=== PATIENT | female | born 1985 | race Caucasian/White ===

== ENCOUNTER 2016-07-23 16:49 | Inpatient (IN) | payer MEDICAID, OTHER ==
--- NOTE | 2016-07-23 17:31 | ED ---
Psych HPI <Carson Gagonn - Last Filed: 07/23/16 20:36> - General Source: patient, RN notes reviewed Mode of arrival: ambulatory <Julianna Allred - Last Filed: 07/23/16 20:59> - General Chief Complaint: Psychiatric Symptoms Stated Complaint: Mental Health Time Seen by Provider: 07/23/16 17:06 - History of Present Illness Initial Comments: Patient is a 31-year-old female presents to the emergency room for psych evaluation. Patient states she has a history of bipolar disorder and depression. Patient states she is supposed to be taking Lamictal. Patient states she has not been taking her medication for months. Patient states she's also has a history of drug abuse. Patient states that she was clean for about 4 months and relapsed about a week ago. Patient states she's been snorting cocaine and using heroin. Patient states today after the drugs wore off she became very depressed and was contemplating committing suicide. Patient states while walking across the bridge she contemplated on walkingin front of a car. Patient states that she was in a garage prior to arrival and was having thoughts of wanting to hang herself. Patient also states she's been more agitated than usual. Patient states people ask her simple questions irritates her a lot easier than usual. Denies visual or auditory hallucinations. Patient denies alcohol use. Patient denies any significant past medical history. Patient denies headache or dizziness, abdominal pain, nausea, vomiting , chest pain, shortness of breath. (Julianna Allred) - Related Data Home Medications Medication Instructions Recorded Confirmed No Known Home Medications [No 07/23/16 07/23/16 Known Home Medications] Allergies Allergy/AdvReac Type Severity Reaction Status Date / Time aspirin AdvReac Bleeding Verified 07/23/16 18:09 ibuprofen [From Motrin] AdvReac Bleeding Verified 07/23/16 18:09 Review of Systems ROS Other: All systems not noted in ROS Statement are negative. <Carson Gagnon - Last Filed: 07/23/16 20:36> ROS Other: All systems not noted in ROS Statement are negative. <Julianna Allred - Last Filed: 07/23/16 20:59> ROS Statement: Those systems with pertinent positive or pertinent negative responses have been documented in the HPI. Past Medical History Past Medical History: Chest Pain / Angina Additional Past Medical History / Comment(s): Positive tilt table test per patient History of Any Multi-Drug Resistant Organisms: None Reported Past Surgical History: Appendectomy, Tonsillectomy, Tubal Ligation Additional Past Surgical History / Comment(s): ovarian cyst removal, pins in ankle, colon surgery- fissure Past Anesthesia/Blood Transfusion Reactions: No Reported Reaction Past Psychological History: Anxiety, Bipolar, Depression, PTSD Smoking Status: Current every day smoker Past Alcohol Use History: None Reported Additional Past Alcohol Use History / Comment(s): Patient currently smokes 1 pack per day and has been doing so since she was 17 years of age. She denies any marijuana use. She does state she uses cocaine periodically and has been recently using every day. She denies any alcohol use. She denies any narcotic use. Patient states she is homeless. Patient also recently moved from [place] to the [facility] Past Drug Use History: Cocaine, Heroin, IV Drug Use - Past Family History Father Family Medical History: No Reported History Additional Family Medical History / Comment(s): Father is alive for patient has had no contact with him. Mother Family Medical History: No Reported History Additional Family Medical History / Comment(s): Mother is alive at age 50 with history of pacemaker placement, bipolar and depression. Patient has 2 sisters one is healthy and one has mental illness. Patient has 2 boys that have ADHD. <Julianna Allred - Last Filed: 07/23/16 20:59> General Exam <Carson Gagnon - Last Filed: 07/23/16 20:36> Limitations: no limitations General appearance: alert, in no apparent distress Head exam: Present: atraumatic, normocephalic, normal inspection Eye exam: Present: normal appearance ENT exam: Present: normal exam Neck exam: Present: normal inspection Respiratory exam: Present: normal lung sounds bilaterally. Absent: respiratory distress Cardiovascular Exam: Present: regular rate, normal rhythm, normal heart sounds GI/Abdominal exam: Present: soft, normal bowel sounds. Absent: distended, tenderness, guarding, rebound, rigid Extremities exam: Present: normal inspection Back exam: Present: normal inspection Neurological exam: Present: alert, oriented X3, CN II-XII intact, normal gait Psychiatric exam: Present: normal affect, normal mood Skin exam: Present: warm, dry, intact, normal color. Absent: rash <Julianna Allred - Last Filed: 07/23/16 20:59> - General Exam Comments Initial Comments: Sitting in exam room, tearful, no acute distress. (Julianna Allred) Disposition <Carson Gagnon - Last Filed: 07/23/16 20:36> Decision Date: 07/23/16 <Julianna Allred - Last Filed: 07/23/16 20:59> Clinical Impression: Polysubstance abuse, Suicidal ideations Disposition: ADMITTED IP TO THIS [facility] Condition: Stable
[2016-07-23] MEDS ORDERED: MAG HYDROX/AL HYDROX/SIMETH 30 ML CUP PO PRN (21:00)
[2016-07-23] MEDS ORDERED: ZIPRASIDONE 20 MG VIAL IM PRN (21:00)
[2016-07-23] MEDS ORDERED: ACETAMINOPHEN TAB 325 MG TAB PO PRN (21:00)
[2016-07-23] MEDS ORDERED: MAGNESIUM HYDROXIDE 2,400 MG/10 ML CUP PO PRN (21:00)
[2016-07-23] MEDS ORDERED: LORazepam 2 MG/ML SYRINGE IM PRN (21:02)
[2016-07-24 09:42] LABS: Basophils % (A) 1 %; CH 30.6; CHCM 34.3; Eosinophils # (A) 0.3 k/uL (0-0.7); Eosinophils % (A) 5 %; HDW 2.82; HGB 13.3 gm/dL (11.4-16.0); Luc # (Auto) 0.14; Luc % (Auto) 3; Lymphocytes # (A) 1.4 k/uL (1.0-4.8); Lymphocytes % (A) 25 %; MCH 31.5 pg (25.0-35.0); MCV 89.9 fL (80.0-100.0); Mean Platelet Volume 7.8; Monocytes # (A) 0.2 k/uL (0-1.0); Monocytes % (A) 4 %; Neutrophils # (A) 3.5 k/uL (1.3-7.7); Neutrophils % (A) 63 %; RBC 4.23 m/uL (3.80-5.40); RDW 12.7 % (11.5-15.5); WBC 5.6 k/uL (3.8-10.6); WBC (Perox) 6.25
[2016-07-24 10:01] LABS: ALT 30 U/L (9-52); AST 31 U/L (14-36); Alkaline Phosphatase 45 U/L (38-126); Anion Gap 10 mmol/L; Blood Urea Nitrogen 9 mg/dL (7-17); Calcium 9.1 mg/dL (8.4-10.2); Carbon Dioxide 25 mmol/L (22-30); Chloride 109 mmol/L (98-107); Glucose 126 mg/dL (74-99); Non-African American GFR(MDRD) >60 (>60 ml/min/1.73 sqM); Potassium 3.2 mmol/L (3.5-5.1); Sodium 144 mmol/L (137-145); Total Bilirubin 0.5 mg/dL (0.2-1.3); Total Protein 6.3 g/dL (6.3-8.2)
[2016-07-24] MEDS: NICOTINE 21MG/24HR PATCH TRANSDERM SCH (10:16)
--- NOTE | 2016-07-24 15:05 | P.HPIM ---
History of Present Illness H&P Date: 07/24/16 Chief Complaint: Medical eval A 31-year-old female is being seen in the mental health unit with the attending at the request of the mental health service for medical eval. Patient presented to the emergency room for psychiatric eval. Patient states that she stopped taking in March all of her medication . Patient stated that she started using street drugs Patient stated that she started snorting cocaine & heroin. When asked why she stopped taking her prescription medication for her bipolar patient stated that she didn't have insurance ran out of money. 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 Patient states that she once the drugs wore off had been very depressed and contemplating committing suicide. Patient stated that she been contemplating walking in front of a car. Patient additionally states that she's been agitated a lot. Patient becomes easily agitated when attempting to interview the patient on the mental health unit Review of Systems Essentially unremarkable except as mentioned in the present illness Past Medical History Past Medical History: Chest Pain / Angina Additional Past Medical History / Comment(s): Positive tilt table test per patient History of Any Multi-Drug Resistant Organisms: None Reported Past Surgical History: Appendectomy, Tonsillectomy, Tubal Ligation Additional Past Surgical History / Comment(s): ovarian cyst removal, pins in ankle, colon surgery- fissure Past Anesthesia/Blood Transfusion Reactions: No Reported Reaction Past Psychological History: Anxiety, Bipolar, Depression, PTSD Smoking Status: Current every day smoker Past Alcohol Use History: None Reported Additional Past Alcohol Use History / Comment(s): Patient currently smokes 1 pack per day and has been doing so since she was 17 years of age. She denies any marijuana use. She does state she uses cocaine periodically and has been recently using every day. She denies any alcohol use. She denies any narcotic use. Patient states she is homeless. Patient also recently moved from [place] to the [facility] Past Drug Use History: Cocaine, Heroin, IV Drug Use - Past Family History Father Family Medical History: No Reported History Additional Family Medical History / Comment(s): Father is alive for patient has had no contact with him. Mother Family Medical History: No Reported History Additional Family Medical History / Comment(s): Mother is alive at age 50 with history of pacemaker placement, bipolar and depression. Patient has 2 sisters one is healthy and one has mental illness. Patient has 2 boys that have ADHD. Medications and Allergies Home Medications Medication Instructions Recorded Confirmed Type No Known Home Medications [No 07/23/16 07/23/16 History Known Home Medications] Allergies Allergy/AdvReac Type Severity Reaction Status Date / Time aspirin AdvReac Bleeding Verified 07/23/16 18:09 ibuprofen [From Motrin] AdvReac Bleeding Verified 07/23/16 18:09 Physical Exam Vitals: Vital Signs Temp Pulse Pulse Resp BP BP Pulse Ox 07/24/16 06:59 97.5 F L 51 L 18 105/63 07/23/16 21:47 98 16 108/55 95 07/23/16 21:09 98.9 F 59 L 16 120/68 99 Intake and Output 07/23/16 07/24/16 07/24/16 22:59 06:59 14:59 Other: Weight 115.212 kg GENERAL APPEARANCE: 31-year-old femalepatient is alert, oriented, in no acute distress. VITAL SIGNS: Reviewed HEENT: Head is normocephalic and atraumatic. Pupils are equal and reactive. The nares are patent. Oropharynx is clear without lesions. NECK: Supple without lymphadenopathy. Traches midline. HEART: S1, S2. Regular rate and rhythm. LUNGS: No crackles or wheezes are heard. ABDOMEN: Soft, nontender, nondistended with good bowel sounds. No peritoneal signs. No palpable organomegaly or masses. EXTREMITIES: Normal skin color and turgor. No cyanosis, rash, ulceration, clubbing or edema. Radial pedal pulses are 2/4 bilaterally. NEUROLOGICAL: No focal deficits. Strength and sensation are grossly intact. Results CBC & Chem 7: 07/24/16 09:20 07/24/16 09:20 Labs: Abnormal Lab Results - Last 24 Hours (Table) 07/24/16 Range/Units 09:20 Potassium 3.2 L (3.5-5.1) mmol/L Chloride 109 H (98-107) mmol/L Glucose 126 H (74-99) mg/dL TSH 0.431 L (0.465-4.680) mIU/L Assessment and Plan Plan: Impression History of polysubstance drug abuse heroin and cocaine Bipolar disorder Depressive disorder nonspecified Suicide ideation present on admission with a verbalize plan Nicotine dependency Plan Continue with recommendations by the mental health service defer to Patient will be seen on an as-needed basis to address medical problems as they arise Patient could be seen in the outpatient setting with her PCP Dr. Goldsmith once discharged from the mental health unit Patient will be advised to stop smoking cigarettes The above dictated assessment and findings were discussed with DR goldsmith . Impression and the plan of care have been dictated as directed. Meera Orozco nurse practitioner acting as a scribe for dr morejon
[2016-07-24] MEDS ORDERED: ARIPiprazole 15 MG TAB PO SCH (21:00)
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
[2016-07-25] MEDS: NICOTINE 21MG/24HR PATCH TRANSDERM SCH (09:12)
[2016-07-25] MEDS: POTASSIUM CHLORIDE ER 20 MEQ TAB.ER PO SCH ×3 (09:52→13:45)
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
[2016-07-25] MEDS ORDERED: buPROPion SR 150 MG TABLET.ER PO ONE (13:47)
[2016-07-25] MEDS: ARIPiprazole 5 MG TAB PO SCH (18:46)
[2016-07-25] MEDS: MELATONIN 5 MG TABLET PO SCH (21:23)
[2016-07-26] MEDS: buPROPion SR 150 MG TABLET.ER PO SCH (08:30)
[2016-07-26] MEDS: NICOTINE 21MG/24HR PATCH TRANSDERM SCH ×2 (08:31→17:46)
[2016-07-26 09:16] LABS: Anion Gap 10 mmol/L; Blood Urea Nitrogen 12 mg/dL (7-17); Calcium 9.1 mg/dL (8.4-10.2); Carbon Dioxide 22 mmol/L (22-30); Chloride 109 mmol/L (98-107); Glucose 111 mg/dL (74-99); Non-African American GFR(MDRD) >60 (>60 ml/min/1.73 sqM); Sodium 141 mmol/L (137-145)
--- NOTE | 2016-07-26 17:19 | P.PN ---
Progress Note - Text SUBJECTIVE: I reviewed the medical record and attempted to interview Gilda. She is a 31-year-old female admitted to the unit involuntarily with history of suicidal ideation in the context of relapse to cocaine and heroin. She initially refused to come out of her home but later approach me in [facility] office. She talked about experiencing fugue states and intrusive memories. For example there are times when she feels as though she is spending time with her children. She believes that they are at the movies. She remembers sharing popcorn and laughing and joking. Then remembers that she has not seen her children and several years and the experience did not actually occur. She also talked about having periods of time when she finds herself somewhere and could not remember how she had arrived. During these episodes she denied that she had been using drugs or drinking. She also talked about hearing voices that are indistinct and distant as though "they were in another home." She denied other psychotic symptoms such as ideas reference, thought insertion, thought broadcasting or thought control OBJECTIVE: She presented as a tall moderately obese casually groomed 31-year- old female who looked younger than her stated age. She cooperated with the interview but left abruptly. She made eye contact and appeared to attend to the exam. She had no distinguishing features or prominent physical abnormalities. She had a blunted facial expression. She was alert and oriented to person, place and time. She had psychomotor retardation but no abnormal involuntary movements. Her speech was not spontaneous. She had no articulation difficulty. Affect was blunted. She denied suicidal ideation or wishes. She denied homicidal ideation. She expressed depressive cognitions such as hopelessness and helplessness. She did not express phobias, ideas reference or paranoid ideation. Her thinking was concrete but her associations were coherent and logical. She described auditory hallucinations but did not appear to be responding to internal stimuli. ASSESSMENT: She continues to described feelings depression but denied suicidal ideation. She is describing other psychotic and nonpsychotic experiences. PLAN: Continue inpatient hospitalization pending her probate hearing. Continue Abilify 5 mg daily, melatonin 5 mg at bedtime and Wellbutrin SR 150 mg daily. Encourage participation in therapeutic groups and activities. Evaluate clinical status response to treatment on a daily basis.
[2016-07-26] MEDS: ARIPiprazole 5 MG TAB PO SCH (17:46)
[2016-07-26] MEDS: LORazepam 1 MG TAB PO PRN (17:48)
[2016-07-26] MEDS: MELATONIN 5 MG TABLET PO SCH (20:49)
[2016-07-27 06:54] VITALS: RESP 16; TEMP 97.4
[2016-07-27] MEDS: NICOTINE 21MG/24HR PATCH TRANSDERM SCH (08:36)
[2016-07-27] MEDS: buPROPion SR 150 MG TABLET.ER PO SCH (08:36)
[2016-07-27] MEDS: LORazepam 1 MG TAB PO PRN (14:21)
[2016-07-27] MEDS ORDERED: traZODone HCL 100 MG TAB PO PRN (15:06)
--- NOTE | 2016-07-27 15:06 | P.PN ---
Progress Note - Text SUBJECTIVE: I reviewed the medical record and attempted to interview Gilda. She signed a "3 day notice" as the afternoon. She reaffirmed her desire to be discharged. She denied problems or concerns other than difficulty sleeping. She requested something to sleep in addition to melatonin. She does not want a prescription for Seroquel due to weight gain but agreed to trazodone. OBJECTIVE: She presented as a tall moderately obese casually groomed 31-year- old female who looked younger than her stated age. She cooperated with the interview. She made eye contact and appeared to attend to the exam. She had no distinguishing features or prominent physical abnormalities. She had a blunted facial expression. She was alert and oriented to person, place and time. She she had normal psychomotor activity. Her speech was spontaneous with normal rate, rhythm and volume.. She had no articulation difficulty. Affect was blunted but stable and appropriate. She denied suicidal ideation or wishes. She denied homicidal ideation. She denied depressive cognitions such as hopelessness and helplessness. She did not express phobias, ideas reference or paranoid ideation. Her thinking was concrete but her associations were coherent and logical. She described possible auditory hallucinations but did not appear to be responding to internal stimuli. ASSESSMENT: She currently denying depression or suicidal ideation. PLAN: Continue inpatient hospitalization pending her probate hearing. Continue Abilify 5 mg daily, melatonin 5 mg at bedtime and Wellbutrin SR 150 mg daily. Trial of trazodone 100 mg at bedtime when necessary for sleep. Encourage participation in therapeutic groups and activities. Evaluate clinical status response to treatment on a daily basis.
[2016-07-27] MEDS: ARIPiprazole 5 MG TAB PO SCH (18:41)
[2016-07-27] MEDS ORDERED: LORazepam 1 MG TAB PO STA (18:51)
[2016-07-27] MEDS ORDERED: ZIPRASIDONE 20 MG VIAL IM ONE (21:08)
[2016-07-27] MEDS ORDERED: WATER FOR INJECTION, STERILE 10 ML IV ONE (21:08)
[2016-07-27] MEDS ORDERED: LORazepam 2 MG/ML SYRINGE IM STA (21:56)
[2016-07-27] MEDS ORDERED: HALOPERIDOL LACTATE 5 MG/ML 1 ML VIAL IM PRN (21:57)
--- NOTE | 2016-07-27 22:05 | P.PN ---
Progress Note - Text Nursing called me to come to the hospital to evaluate the patient by 10:05 PM. They placed her in restraints 9:05 PM. The charge nurse described increasing agitation and disruptive behavior. The precipitant appeared to be not receiving her evening medications when she demanded. Nursing staff was unable to deescalate her agitation and violent behavior. I evaluated her in the seclusion room. She was in 4-point restraint and the one -to-one sitter was at her bedside. She was alert and oriented. She took no responsibility for actions and placed a blame for her behavioral dyscontrol on staff. She received 20 mg of Geodon IM at 9:20 PM. I ordered haloperidol 5 mg IM every 6 hours when necessary for agitation acute psychosis and lorazepam 2 mg IM once.
[2016-07-27] MEDS: MELATONIN 5 MG TABLET PO SCH (22:39)
[2016-07-28 06:19] VITALS: BP 87/50; PULSE 48
[2016-07-28] MEDS: buPROPion SR 150 MG TABLET.ER PO SCH (12:49)
[2016-07-28] MEDS ORDERED: buPROPion SR 150 MG TABLET.ER PO STA (12:49)
[2016-07-28] MEDS: NICOTINE 21MG/24HR PATCH TRANSDERM SCH (12:52)
[2016-07-28] MEDS ORDERED: ARIPiprazole 15 MG TAB PO SCH (19:00)
[2016-07-28] MEDS ORDERED: busPIRone HCl 5 MG TAB PO SCH (21:00)
[2016-07-29] MEDS ORDERED: buPROPion SR 100 MG TABLET.ER PO SCH (09:00)
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
== END 2016-07-28 13:10 | disposition home or self-care (01) | DRG 897 ==
LOC: EC 16:49 → 3MHU 20:58
PROVIDERS: ADMIT Psychiatry & Neurology Psychiatry; ATTEND Psychiatry & Neurology Psychiatry
DX: F14.159 Cocaine abuse with cocaine-induced psychotic disorder, unspecified (principal); R45.851 Suicidal ideations; F31.5 Bipolar disorder, current episode depressed, severe, with psychotic features; E66.3 Overweight; F17.210 Nicotine dependence, cigarettes, uncomplicated; F43.10 Post-traumatic stress disorder, unspecified; F60.3 Borderline personality disorder; Z59.0 Homelessness; Z62.810 Personal history of physical and sexual abuse in childhood; Z65.3 Problems related to other legal circumstances; Z78.1 Physical restraint status; Z79.899 Other long term (current) drug therapy; Z81.8 Family history of other mental and behavioral disorders; Z91.14 Patient's other noncompliance with medication regimen; Z91.19 Patient's noncompliance with other medical treatment and regimen; Z91.410 Personal history of adult physical and sexual abuse; Z68.35 Body mass index [BMI] 35.0-35.9, adult; F41.9 Anxiety disorder, unspecified
CPT/HCPCS: 80048; 80053; 80306; 81025; 84443; 85025; 99285

== ENCOUNTER 2016-10-06 19:55 | Emergency (ER) | payer MEDICAID, OTHER ==
[2016-10-06 20:16] LABS: Glucose,Whole Blood 220 mg/dL (75-99)
[2016-10-06] MEDS ORDERED: SODIUM CHLORIDE 0.9% 1,000 ML IV STA (20:18)
--- NOTE | 2016-10-06 20:22 | ED ---
Dizziness HPI - General Chief Complaint: Dizziness Stated Complaint: Syncope Time Seen by Provider: 10/06/16 20:15 Source: patient, EMS, RN notes reviewed Mode of arrival: EMS Limitations: no limitations - History of Present Illness Initial Comments: 31-year-old female presents emergency department via EMS for [facility]. Patient states that she donated plasma and got done at 6:33pm states proximal currently one hour after she started feeling very dizzy, lightheaded like she was going to pass out. She states she walked [facility] was notified eat something felt that she still was going to pass out called 911. Patient states he has had syncopal episodes in the past. She denies any chest pain, shortness of breath, headache, blurred vision or any focal weakness. Denies any nausea vomiting. Patient states that she is donated plasma several times - Related Data Home Medications Medication Instructions Recorded Confirmed ARIPiprazole [Abilify] 15 mg PO DAILY 10/06/16 10/06/16 buPROPion HCL [Wellbutrin XL] 300 mg PO DAILY 10/06/16 10/06/16 traZODone HCL [Desyrel] 100 mg PO HS 10/06/16 10/06/16 Previous Rx's Medication Instructions Recorded busPIRone HCl [Buspar] 5 mg PO BID 30 Days 07/28/16 Allergies Allergy/AdvReac Type Severity Reaction Status Date / Time aspirin AdvReac Bleeding Verified 10/06/16 20:36 ibuprofen [From Motrin] AdvReac Bleeding Verified 10/06/16 20:36 Review of Systems ROS Statement: Those systems with pertinent positive or pertinent negative responses have been documented in the HPI. ROS Other: All systems not noted in ROS Statement are negative. Past Medical History Past Medical History: Chest Pain / Angina Additional Past Medical History / Comment(s): Positive tilt table test per patient, syncope History of Any Multi-Drug Resistant Organisms: None Reported Past Surgical History: Appendectomy, Tonsillectomy, Tubal Ligation Additional Past Surgical History / Comment(s): ovarian cyst removal, pins in ankle, colon surgery- fissure Past Anesthesia/Blood Transfusion Reactions: No Reported Reaction Past Psychological History: Anxiety, Bipolar, Depression, PTSD Smoking Status: Current every day smoker Past Alcohol Use History: None Reported Additional Past Alcohol Use History / Comment(s): Patient currently smokes 1 pack per day and has been doing so since she was 17 years of age. She denies any marijuana use. She does state she uses cocaine periodically and has been recently using every day. She denies any alcohol use. She denies any narcotic use. Patient states she is homeless. Patient also recently moved from [place] to the [facility] Past Drug Use History: Cocaine, Heroin, IV Drug Use - Past Family History Father Family Medical History: No Reported History Additional Family Medical History / Comment(s): Father is alive for patient has had no contact with him. Mother Family Medical History: No Reported History Additional Family Medical History / Comment(s): Mother is alive at age 50 with history of pacemaker placement, bipolar and depression. Patient has 2 sisters one is healthy and one has mental illness. Patient has 2 boys that have ADHD. General Exam Limitations: no limitations General appearance: alert, in no apparent distress ENT exam: Present: normal exam, normal oropharynx, mucous membranes moist Neck exam: Present: normal inspection. Absent: tenderness, meningismus, lymphadenopathy Respiratory exam: Present: normal lung sounds bilaterally. Absent: respiratory distress, wheezes, rales, rhonchi, stridor Cardiovascular Exam: Present: regular rate, normal rhythm, normal heart sounds. Absent: systolic murmur, diastolic murmur, rubs, gallop, clicks GI/Abdominal exam: Present: soft, normal bowel sounds. Absent: distended, tenderness, guarding, rebound, rigid Neurological exam: Present: alert, oriented X3, CN II-XII intact, reflexes normal. Absent: motor sensory deficit Skin exam: Present: warm, dry, intact, normal color. Absent: rash Course Vital Signs 10/06/16 20:06 Temperature 98.3 F Pulse Rate 63 Respiratory 16 Rate Blood Pressure 106/58 O2 Sat by Pulse 97 Oximetry EKG Findings - EKG Comments: EKG Findings:: EKG performed at 20:31 normal sinus rhythm with a rate of 66 AK interval 168 QRS duration 100 QT/QTC 426/446 Medical Decision Making - Medical Decision Making 31-year-old female presented emergency department for new cycle after plasma donation. Patient's labwork does reveals mild hyperglycemia at 220. Patient states she's not diabetic. Facial follow-up regular physician for recheck of this. Patient states she is feeling improved after IV fluids. - Lab Data Result diagrams: 10/06/16 20:14 10/06/16 20:14 Lab Results 10/06/16 10/06/16 10/06/16 Range/Units 20:14 20:14 20:15 WBC 13.9 H (3.8-10.6) k/uL RBC 4.90 (3.80-5.40) m/uL Hgb 15.4 (11.4-16.0) gm/dL Hct 44.8 (34.0-46.0) % MCV 91.4 (80.0-100.0) fL MCH 31.5 (25.0-35.0) pg MCHC 34.5 (31.0-37.0) g/dL RDW 12.5 (11.5-15.5) % Plt Count 276 (150-450) k/uL Neutrophils % 79 % Lymphocytes % 14 % Monocytes % 3 % Eosinophils % 2 % Basophils % 1 % Neutrophils # 10.9 H (1.3-7.7) k/uL Lymphocytes # 2.0 (1.0-4.8) k/uL Monocytes # 0.5 (0-1.0) k/uL Eosinophils # 0.3 (0-0.7) k/uL Basophils # 0.1 (0-0.2) k/uL Sodium 138 (137-145) mmol/L Potassium 3.6 (3.5-5.1) mmol/L Chloride 109 H (98-107) mmol/L Carbon Dioxide 18 L (22-30) mmol/L Anion Gap 11 mmol/L BUN 16 (7-17) mg/dL Creatinine 0.98 (0.52-1.04) mg/dL Est GFR (MDRD) Af Amer >60 (>60 ml/min/1.73 sqM) Est GFR (MDRD) Non-Af >60 (>60 ml/min/1.73 sqM) Glucose 222 H (74-99) mg/dL POC Glucose (mg/dL) 220 H (75-99) mg/dL POC Glu [employer] Operator ID Olivia Segal Calcium 8.9 (8.4-10.2) mg/dL Total Bilirubin 0.6 (0.2-1.3) mg/dL AST 23 (14-36) U/L ALT 14 (9-52) U/L Alkaline Phosphatase 52 (38-126) U/L Total Protein 6.1 L (6.3-8.2) g/dL Albumin 3.6 (3.5-5.0) g/dL Disposition Clinical Impression: Near syncope, Hyperglycemia Disposition: HOME SELF-CARE Condition: Stable Instructions: Near Syncope (ED) Additional Instructions: Please return to the Emergency Department if symptoms worsen or any other concerns. Referrals: Sai Garcia MD [Primary Care Provider] - 1-2 days Time of Disposition: 21:05
[2016-10-06 20:41] LABS: Basophils # (A) 0.1 k/uL (0-0.2); Basophils % (A) 1 %; CH 31.9; Eosinophils # (A) 0.3 k/uL (0-0.7); Eosinophils % (A) 2 %; HCT 44.8 % (34.0-46.0); HDW 2.56; HGB 15.4 gm/dL (11.4-16.0); Luc # (Auto) 0.15; Luc % (Auto) 1; Lymphocytes % (A) 14 %; MCH 31.5 pg (25.0-35.0); MCHC 34.5 g/dL (31.0-37.0); MCV 91.4 fL (80.0-100.0); Monocytes # (A) 0.5 k/uL (0-1.0); Monocytes % (A) 3 %; Neutrophils # (A) 10.9 k/uL (1.3-7.7); Neutrophils % (A) 79 %; RDW 12.5 % (11.5-15.5); WBC 13.9 k/uL (3.8-10.6); WBC (Perox) 14.14
[2016-10-06 20:55] LABS: ALT 14 U/L (9-52); AST 23 U/L (14-36); Alkaline Phosphatase 52 U/L (38-126); Anion Gap 11 mmol/L; Blood Urea Nitrogen 16 mg/dL (7-17); Calcium 8.9 mg/dL (8.4-10.2); Carbon Dioxide 18 mmol/L (22-30); Chloride 109 mmol/L (98-107); Glucose 222 mg/dL (74-99); Non-African American GFR(MDRD) >60 (>60 ml/min/1.73 sqM); Potassium 3.6 mmol/L (3.5-5.1); Sodium 138 mmol/L (137-145); Total Bilirubin 0.6 mg/dL (0.2-1.3); Total Protein 6.1 g/dL (6.3-8.2)
[2016-10-06 21:14] VITALS: BP 108/59; PULSE 86; RESP 18; TEMP 97.9
== END 2016-10-06 21:13 | disposition home or self-care (01) ==
LOC: EC 19:55
DX: R55 Syncope and collapse (principal); R73.9 Hyperglycemia, unspecified; F31.9 Bipolar disorder, unspecified; F41.9 Anxiety disorder, unspecified; F43.10 Post-traumatic stress disorder, unspecified; F17.200 Nicotine dependence, unspecified, uncomplicated; Z79.899 Other long term (current) drug therapy; Z88.6 Allergy status to analgesic agent
CPT/HCPCS: 36415; 80053; 85025; 93005; 96360; 99284

== ENCOUNTER 2018-02-18 17:51 | Emergency (ER) | payer OTHER ==
[2018-02-18 18:27] VITALS: RESP 18
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
--- NOTE | 2018-02-18 19:00 | XR ---
EXAMINATION TYPE: XR ankle complete LT DATE OF EXAM: 02/18/2018 COMPARISON: 01/16/2012 HISTORY: Pain TECHNIQUE: 3 views FINDINGS: There is hypertrophic spurring of the anterior and posterior malleolus. There is mild soft tissue swelling around the ankle joint on the lateral view. Subtalar joint appears intact. IMPRESSION: There is some mild posttraumatic osteoarthritis of the ankle joint. No change.
[2018-02-18 20:16] VITALS: BP 131/85; PULSE 78; TEMP 98.5
== END 2018-02-18 20:17 | disposition home or self-care (01) ==
LOC: EC 17:51
DX: M19.072 Primary osteoarthritis, left ankle and foot (principal); R23.8 Other skin changes; F17.200 Nicotine dependence, unspecified, uncomplicated; Z88.6 Allergy status to analgesic agent; Z98.890 Other specified postprocedural states
CPT/HCPCS: 99283

== ENCOUNTER 2018-02-19 15:41 | Emergency (ER) | payer OTHER ==
[2018-02-19 15:51] VITALS: BP 115/92; PULSE 80; RESP 18; TEMP 98.4
[2018-02-19] MEDS ORDERED: traMADol 50 MG STARTER PACK 3 TAB BTL PO STA (16:50)
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
== END 2018-02-19 16:59 | disposition home or self-care (01) ==
LOC: EC 15:41
DX: M25.572 Pain in left ankle and joints of left foot (principal); M19.072 Primary osteoarthritis, left ankle and foot; F17.200 Nicotine dependence, unspecified, uncomplicated; Z88.6 Allergy status to analgesic agent
CPT/HCPCS: 99283

== ENCOUNTER → 2018-09-07 | Outpatient (CLI) | payer OTHER | END | disposition home or self-care (01) | LOC: LABWHC1 10:35 | PROVIDERS: ATTEND Surgery | DX: Z52.4 Kidney donor (principal) | CPT/HCPCS: 86900; 86901 ==

== ENCOUNTER → 2018-10-05 | Outpatient (CLI) | payer OTHER ==
--- NOTE | 2018-10-05 14:26 | XR ---
EXAMINATION TYPE: XR chest 2V DATE OF EXAM: 10/05/2018 COMPARISON: NONE HISTORY: Presurgical study. TECHNIQUE: Frontal and lateral views of the chest are obtained. FINDINGS: There is no focal air space opacity, pleural effusion, or pneumothorax seen. The cardiac silhouette size is within normal limits. The osseous structures are intact. IMPRESSION: No acute cardiopulmonary process.
== END | disposition home or self-care (01) ==
LOC: LABWHC1 13:18
PROVIDERS: ATTEND Surgery
DX: Z51.89 Encounter for other specified aftercare (principal); Z13.6 Encounter for screening for cardiovascular disorders; Z52.4 Kidney donor
CPT/HCPCS: 36415; 71046; 93005

== ENCOUNTER → 2018-10-11 | Outpatient (CLI) | payer OTHER ==
[2018-10-11 10:13] LABS: Appearance,Urine Clear (Clear); Bilirubin,Urine Negative (Negative); Blood,Urine Moderate (Negative); Color,Urine Yellow; Glucose,Urine (UA) Negative (Negative); Ketones,Urine Negative (Negative); Leukocyte Esterase,Urine Negative (Negative); Mucus,Urine Rare /hpf; Nitrite,Urine Negative (Negative); Protein,Urine Negative (Negative); RBC,Urine >182 /hpf (0-5); Specific Gravity,Urine 1.022 (1.001-1.035); Squamous Epithelial Cell,Urine 1 /hpf (0-4); Urobilinogen,Urine <2.0 mg/dL (<2.0); WBC,Urine 1 /hpf (0-5)
[2018-10-11 10:14] LABS: Basophils # (A) 0.1 k/uL (0-0.2); Basophils % (A) 1 %; Eosinophils # (A) 0.2 k/uL (0-0.7); Eosinophils % (A) 2 %; HCT 39.3 % (34.0-46.0); HGB 13.1 gm/dL (11.4-16.0); Lymphocytes # (A) 1.7 k/uL (1.0-4.8); Lymphocytes % (A) 20 %; MCH 28.8 pg (25.0-35.0); MCHC 33.5 g/dL (31.0-37.0); MCV 86.2 fL (80.0-100.0); Mean Platelet Volume 6.9; Monocytes # (A) 0.3 k/uL (0-1.0); Monocytes % (A) 4 %; Neutrophils # (A) 6.1 k/uL (1.3-7.7); Neutrophils % (A) 72 %; Platelet Count 251 k/uL (150-450); RBC 4.56 m/uL (3.80-5.40); WBC 8.5 k/uL (3.8-10.6)
[2018-10-11 10:17] LABS: INR 0.9 (<1.2); Partial Thromboplastin Time 26.6 sec (22.0-30.0); Prothrombin Time 9.7 sec (9.0-12.0)
[2018-10-11 15:02] LABS: Creatinine 24 Hour,Urine 1525.7 mg/24hr (800.0-1800.0)
[2018-10-11 16:45] LABS: ALT 24 U/L (8-44); AST 35 U/L (13-35); African American GFR (CKD) 86.3 (60.0-200.0); Albumin/Globulin Ratio 1.87 (1.60-3.17); Alkaline Phosphatase 64 U/L (41-126); Bilirubin, Conjugated <0.20 mg/dL (0.20-0.40); Calcium 9.2 mg/dL (8.7-10.3); Carbon Dioxide 17.2 mmol/L (21.6-31.8); Chloride 116 mmol/L (96-109); Cholesterol 166 mg/dL (0-200); GGT 25 U/L (0-38); Globulin 2.3 g/dL (1.6-3.3); Glucose 109 mg/dL (70-110); LDH 214 U/L (120-246); Phosphorus 3.6 mg/dL (2.4-5.1); Potassium 3.8 mmol/L (3.5-5.5); Sodium 139 mmol/L (135-145); Total Bilirubin 0.2 mg/dL (0.3-1.2); Total Protein 6.6 g/dL (6.2-8.2)
[2018-10-11 17:25] LABS: Hepatitis B Core IgM Non-Reactive (Non-Reactive); Hepatitis B Surface AB- Quant 522.1 mIU/mL; Hepatitis C IgG Antibody Non-Reactive (Non-Reactive)
[2018-10-11 17:54] LABS: Hemoglobin A1C 5.4 % (4.0-6.0)
[2018-10-11 18:02] LABS: Total Volume 24 Hour,Urine 1100 mL
[2018-10-11 18:22] LABS: Creatinine,Urine Random 130.9 mg/dL
[2018-10-11 19:01] LABS: EBV-EA (IgG) <0.2 AI; EBV-EBNA(IgG) >8.0 AI; EBV-VCA (IgG) 2.7 AI; HIV 1 AB Non-Reactive (Non-Reactive); HIV AB P24 Non-Reactive (Non-Reactive); HIV P24 AG Non-Reactive (Non-Reactive)
[2018-10-11 19:39] LABS: Total Protein 24 Hour,Urine 155.1 mg/24Hr; Total Protein,Urine Random 12.1 mg/dL (0.0-13.5)
[2018-10-12 14:25] LABS: Hepatits C Virus RNA Not detected (Not detected); Hepatits C Virus RNA, Quant <12 IU/mL (<12); LOG HCV IU/mL <1.08 (<1.08)
== END | disposition home or self-care (01) ==
LOC: LABWHC1 09:06
PROVIDERS: ATTEND Surgery
DX: Z52.4 Kidney donor (principal)
CPT/HCPCS: 36415; 80053; 80061; 81001; 81050; 82043; 82248; 82570; 82575; 82977; 83036; 83615; 84100; 84156; 85025; 85610; 85730; 86644; 86663; 86664; 86665; 86704; 86705; 86706; 86780; 86788; 86789; 86803; 87086; 87340; 87390; 87522

== ENCOUNTER 2019-05-23 19:39 | Emergency (ER) | payer OTHER ==
[2019-05-23] MEDS ORDERED: KETOROLAC 30 MG/ML 1 ML VIAL IM STA (21:31)
--- NOTE | 2019-05-23 21:37 | ED ---
Back Pain HPI - General Chief Complaint: Back Pain/Injury Stated Complaint: Back pain Time Seen by Provider: 05/23/19 20:47 Source: patient Limitations: no limitations - History of Present Illness Initial Comments: Patient is a 34-year-old female presenting to the emergency department with a chief complaint of back pain. Patient states she injured her back about 4 months ago when she was carrying boxes up stairs. Patient states she went to her primary care who sent her to physical therapy. Patient did report improvement in symptoms after physical therapy. Patient reports 2 days ago she was moving and was again carrying large boxes. Patient reports over the last 2 days she has developed left paravertebral pain in the lumbosacral region that is exacerbated with left rotation and back extension. Patient also reports over the last 2 days she's developed apparent urinary bowel incontinence. Patient states that she would urinate small amounts before having the sensation of going. Patient does report taking ibuprofen to alleviate some of the pain. Denies saddle anesthesia but does report a tingling sensation in the left side of the lumbosacral region. Patient does admit to doing cocaine daily. She states that she did not do any today. Denies back pain abdominal pain or shortness of breath. - Related Data Home Medications Medication Instructions Recorded Confirmed DULoxetine HCL [Cymbalta] 30 mg PO HS 05/23/19 05/23/19 Perphenazine [Trilafon] 24 mg PO HS 05/23/19 05/23/19 Topiramate [Topamax] 300 mg PO HS 05/23/19 05/23/19 buPROPion HCL [Wellbutrin XL] 150 mg PO DAILY 05/23/19 05/23/19 busPIRone HCL [Buspar] 30 mg PO BID 05/23/19 05/23/19 hydrOXYzine PAMOATE [Vistaril] 50 mg PO TID PRN 05/23/19 05/23/19 Previous Rx's Medication Instructions Recorded Lidocaine 5% Patch [Lidoderm] 1 patch TOPICAL DAILY #6 patch 05/23/19 Allergies Allergy/AdvReac Type Severity Reaction Status Date / Time aspirin AdvReac Bleeding Verified 05/23/19 23:09 ibuprofen [From Motrin] AdvReac Bleeding Verified 05/23/19 23:09 Review of Systems ROS Statement: Those systems with pertinent positive or pertinent negative responses have been documented in the HPI. ROS Other: All systems not noted in ROS Statement are negative. Past Medical History Past Medical History: Chest Pain / Angina Additional Past Medical History / Comment(s): Back pain, Positive tilt table test per patient, syncope History of Any Multi-Drug Resistant Organisms: None Reported Past Surgical History: Appendectomy, Tonsillectomy, Tubal Ligation Additional Past Surgical History / Comment(s): ovarian cyst removal, pins in ankle, colon surgery- fissure Past Anesthesia/Blood Transfusion Reactions: No Reported Reaction Past Psychological History: Anxiety, Bipolar, Depression, PTSD Smoking Status: Current every day smoker Past Alcohol Use History: None Reported Past Drug Use History: Cocaine, Heroin, IV Drug Use - Past Family History Father Family Medical History: No Reported History Additional Family Medical History / Comment(s): Father is alive for patient has had no contact with him. Mother Family Medical History: No Reported History Additional Family Medical History / Comment(s): Mother is alive at age 50 with history of pacemaker placement, bipolar and depression. Patient has 2 sisters one is healthy and one has mental illness. Patient has 2 boys that have ADHD. General Exam Limitations: no limitations General appearance: alert, in no apparent distress Head exam: Present: atraumatic, normocephalic, normal inspection Eye exam: Present: normal appearance, PERRL, EOMI Pupils: Present: normal accommodation ENT exam: Present: normal exam, normal oropharynx, mucous membranes moist, TM's normal bilaterally Neck exam: Present: normal inspection, full ROM Respiratory exam: Present: normal lung sounds bilaterally Cardiovascular Exam: Present: regular rate, normal rhythm, normal heart sounds GI/Abdominal exam: Present: soft. Absent: distended, tenderness Rectal exam: Present: normal rectal tone Extremities exam: Present: normal inspection, full ROM, normal capillary refill Back exam: Present: normal inspection (No signs of an infection anywhere in the back.), tenderness, paraspinal tenderness (Left paraspinal tenderness in the lumbosacral region with pain radiating down the posterior aspect of the left upper leg. Negative leg raise test.). Absent: full ROM (Limited range of motion with left rotation and extension due to pain.) Neurological exam: Present: alert, oriented X3 Psychiatric exam: Present: normal affect, normal mood Skin exam: Present: warm, dry, intact, normal color Course Vital Signs 05/23/19 05/23/19 20:03 23:13 Temperature 98.0 F 98.7 F Pulse Rate 63 61 Respiratory 18 16 Rate Blood Pressure 128/85 115/86 O2 Sat by Pulse 99 98 Oximetry Medical Decision Making - Medical Decision Making Patient is a 34-year-old female presenting to the emergency department with a chief complaint of back pain. Patient states she had previously injured her back and suspects that she reinjured it again because she was moving 2 days ago. Patient also reports some [place] sensation on the proximal aspect of the left lower extremity. Patient states the pain is located in the lumbosacral region with occasional radiation to the left lower extremity. Patient does report some or occasional urinary incontinence but denies bowel incontinence or saddle anesthesia. Patient does have good rectal tone. UA is unremarkable. Lumbar x- ray shows denies degenerative changes but no acute pathologies. Patient does admit to doing cocaine daily but not today. Patient does appear to be hyperactive on evaluation. Bladder scan shows less than 50 mL of post residual volume. Patient was given symptom medical control for her back pain and she feels better. Dr. Zuniga also examine the patient and is in agreement with the treatment plan. Patient was given a prescription for Lidoderm patches. She was advised to follow-up with primary care. Strict return parameters were thoroughly discussed the patient is understanding and agreeable. - Lab Data Lab Results 05/23/19 Range/Units 21:19 Urine Color Yellow Urine Appearance Cloudy H (Clear) Urine pH 6.0 (5.0-8.0) Ur Specific [place] >1.050 H (1.001-1.035) Urine Protein 1+ H (Negative) Urine Glucose (UA) Negative (Negative) Urine Ketones 2+ H (Negative) Urine Blood Negative (Negative) Urine Nitrite Negative (Negative) Urine Bilirubin 1+ H (Negative) Urine Urobilinogen 3.0 (<2.0) mg/dL Ur Leukocyte Esterase Trace H (Negative) Urine RBC 2 (0-5) /hpf Urine WBC 4 (0-5) /hpf Ur Squamous Epith Cells 11 H (0-4) /hpf Calcium Oxalate Crystal Many H (None) /hpf Urine Mucus Many H (None) /hpf Disposition Clinical Impression: Mechanical back pain, Strain of lumbar region Disposition: HOME SELF-CARE Condition: Stable Instructions (If sedation given, give patient instructions): Acute Low Back Pain (ED) Additional Instructions: Take prescribed medication as directed. Return to emergency department if symptoms worsen. Follow-up with orthopedics. Prescriptions: Lidocaine 5% Patch [Lidoderm] 1 patch TOPICAL DAILY #6 patch Is patient prescribed a controlled substance at d/c from ED?: No Referrals: None,Stated [Primary Care Provider] - 1-2 days Jose Diane PAC [PHYSICIAN PRESIDENT AND [employer]IE[employer] EXECUTIVE OFFICER] - 1-2 days Time of Disposition: 23:04
--- NOTE | 2019-05-23 21:46 | XR ---
Lumbar spine HISTORY: Pain 3 views lumbar spine Lumbar vertebral bodies show preserved height, alignment, and bone mineralization. Surgical clip is p resent over the right sacral ala. Disc spaces are maintained with exception of loss of disc height L5 -S1. Spondylosis present at the lower thoracic spine. IMPRESSION: Degenerative disc disease, consider lumbar MRI. Postop changes.
[2019-05-23] MEDS ORDERED: DEXAMETHASONE SOD PHOSPHATE 10 MG/ML 1 ML VIAL IM STA (21:52)
[2019-05-23 22:24] LABS: Appearance,Urine Cloudy (Clear); Bilirubin,Urine 1+ (Negative); Blood,Urine Negative (Negative); Calcium Oxalate Crystals,Urine Many /hpf; Color,Urine Yellow; Glucose,Urine (UA) Negative (Negative); Ketones,Urine 2+ (Negative); Leukocyte Esterase,Urine Trace (Negative); Mucus,Urine Many /hpf; Nitrite,Urine Negative (Negative); Protein,Urine 1+ (Negative); RBC,Urine 2 /hpf (0-5); Specific Gravity,Urine >1.050 (1.001-1.035); Squamous Epithelial Cell,Urine 11 /hpf (0-4); WBC,Urine 4 /hpf (0-5)
[2019-05-23 23:14] VITALS: BP 115/86; PULSE 61; RESP 16; TEMP 98.7
== END 2019-05-23 23:22 | disposition home or self-care (01) ==
LOC: EC 19:39
DX: S39.012A Strain of muscle, fascia and tendon of lower back, initial encounter (principal); F17.200 Nicotine dependence, unspecified, uncomplicated; Z88.6 Allergy status to analgesic agent; X58.XXXA Exposure to other specified factors, initial encounter
CPT/HCPCS: 81001; 72100; 99283; 96372 ×2; J1100; J1885

== ENCOUNTER 2019-06-13 09:13 | Inpatient (IN) | payer MEDICAID, OTHER ==
--- NOTE | 2019-06-13 09:40 | ED ---
General Adult HPI - General Chief complaint: Psychiatric Symptoms Stated complaint: Mental Health Time Seen by Provider: 06/13/19 09:27 Source: patient, RN notes reviewed, old records reviewed Mode of arrival: ambulatory Limitations: no limitations - History of Present Illness Initial comments: 34-year-old female presenting for evaluation of suicidal ideation, no suicide attempt. Patient has history of mental illness, anxiety and depression she's been off her medications for approximately 3 weeks. She states she has been using cocaine and has plans to overdose. She states she had an overdose attempt 1 year ago. She has no physical complaints today. She denies suicide attempt today. Denies any cocaine ingestion or alcohol ingestion today. - Related Data Home Medications Medication Instructions Recorded Confirmed DULoxetine HCL [Cymbalta] 30 mg PO HS 05/23/19 06/13/19 Topiramate [Topamax] 300 mg PO HS 05/23/19 06/13/19 buPROPion HCL [Wellbutrin XL] 150 mg PO HS 05/23/19 06/13/19 busPIRone HCL [Buspar] 30 mg PO BID 05/23/19 06/13/19 hydrOXYzine PAMOATE [Vistaril] 50 mg PO TID PRN 05/23/19 06/13/19 Trilafon 8 Mg 24 mg PO HS 06/13/19 06/13/19 Allergies Allergy/AdvReac Type Severity Reaction Status Date / Time aspirin AdvReac Bleeding Verified 06/13/19 10:03 ibuprofen [From Motrin] AdvReac Bleeding Verified 06/13/19 10:03 Review of Systems ROS Statement: Those systems with pertinent positive or pertinent negative responses have been documented in the HPI. ROS Other: All systems not noted in ROS Statement are negative. Past Medical History Past Medical History: Chest Pain / Angina Additional Past Medical History / Comment(s): Back pain, Positive tilt table test per patient, syncope History of Any Multi-Drug Resistant Organisms: None Reported Past Surgical History: Appendectomy, Tonsillectomy, Tubal Ligation Additional Past Surgical History / Comment(s): ovarian cyst removal, pins in ankle, colon surgery- fissure Past Anesthesia/Blood Transfusion Reactions: No Reported Reaction Past Psychological History: Anxiety, Bipolar, Depression, PTSD Smoking Status: Current every day smoker Past Alcohol Use History: None Reported Past Drug Use History: Cocaine, Heroin, IV Drug Use - Past Family History Father Family Medical History: No Reported History Additional Family Medical History / Comment(s): Father is alive for patient has had no contact with him. Mother Family Medical History: No Reported History Additional Family Medical History / Comment(s): Mother is alive at age 50 with history of pacemaker placement, bipolar and depression. Patient has 2 sisters one is healthy and one has mental illness. Patient has 2 boys that have ADHD. General Exam Limitations: no limitations General appearance: alert, in no apparent distress Head exam: Present: atraumatic, normocephalic Eye exam: Present: normal appearance, PERRL, EOMI Neck exam: Present: normal inspection Respiratory exam: Absent: normal lung sounds bilaterally, respiratory distress Cardiovascular Exam: Present: regular rate, normal rhythm GI/Abdominal exam: Present: soft. Absent: distended, tenderness Extremities exam: Present: normal inspection, normal capillary refill. Absent: pedal edema Neurological exam: Present: alert, oriented X3, CN II-XII intact. Absent: motor sensory deficit Psychiatric exam: Present: depressed, anxious, suicidal ideation Skin exam: Present: warm, dry, intact. Absent: cyanosis, diaphoretic Course Vital Signs 06/13/19 09:22 Temperature 97.6 F Pulse Rate 56 L Respiratory 19 Rate Blood Pressure 134/87 O2 Sat by Pulse 99 Oximetry - Reevaluation(s) Reevaluation #1: 06/13/19 09:40 Patient medically cleared awaiting EPS evaluation. Medical Decision Making - Medical Decision Making 34-year-old female with chief complaint of anxiety and depression as well as suicidal ideation. Patient had been medically cleared and evaluated by EPS, they are recommending inpatient psychiatric evaluation and treatment. Patient is agreeable. Disposition Clinical Impression: Depression, Cocaine abuse, Suicidal ideation Disposition: ADMITTED IP TO THIS [facility] Condition: Stable Is patient prescribed a controlled substance at d/c from ED?: No Referrals: None,Stated [Primary Care Provider] - 1-2 days Decision to Admit Reason: Admit from EC Decision Date: 06/13/19 Decision Time: 10:44
[2019-06-13 12:20] LABS: Amphetamine Screen,Urine Not Detected (NotDetected); Barbiturate Screen,Urine Not Detected (NotDetected); Benzodiazepines Screen,Urine Not Detected (NotDetected); Cocaine Screen,Urine Detected (NotDetected); Methadone Screen, Urine Detected (NotDetected); Opiate Screen,Urine Not Detected (NotDetected); Oxycodone Screen, Urine Not Detected (NotDetected); Phencyclidine Screen,Urine Not Detected (NotDetected); Tricyclic Antidepressant,Urine Not Detected (NotDetected); Urn Cannabinoid Scrn Not Detected (NotDetected)
[2019-06-13] MEDS ORDERED: MAGNESIUM HYDROXIDE 2,400 MG/10 ML CUP PO PRN (14:19)
[2019-06-13] MEDS ORDERED: MAG HYDROX/AL HYDROX/SIMETH 30 ML CUP PO PRN (14:19)
[2019-06-13] MEDS ORDERED: ZIPRASIDONE 20 MG VIAL IM PRN (14:19)
[2019-06-13] MEDS ORDERED: hydrOXYzine PAMOATE 25 MG CAP PO PRN (14:23)
[2019-06-13] MEDS: ACETAMINOPHEN TAB 325 MG TAB PO PRN ×2 (14:50→20:14)
[2019-06-13 16:45] LABS: Bacteria,Urine Occasional /hpf; Hyaline Casts,Urine 4 /lpf (0-2); Mucus,Urine Moderate /hpf; RBC,Urine 4 /hpf (0-5); Squamous Epithelial Cell,Urine 5 /hpf (0-4); WBC,Urine 4 /hpf (0-5)
[2019-06-13 16:50] LABS: Appearance,Urine Clear (Clear); Bilirubin,Urine Negative (Negative); Color,Urine Yellow; Glucose,Urine (UA) Negative (Negative); Ketones,Urine Negative (Negative); Protein,Urine 1+ (Negative); Specific Gravity,Urine 1.025 (1.001-1.035)
[2019-06-13 16:51] LABS: Blood,Urine Large (Negative); Leukocyte Esterase,Urine Negative (Negative); Nitrite,Urine Negative (Negative); Urobilinogen,Urine 0.2 mg/dL (<2.0)
[2019-06-13] MEDS: busPIRone HCl 10 MG TAB PO SCH (20:12)
[2019-06-13] MEDS: buPROPion 75 MG TAB PO SCH (20:12)
[2019-06-13] MEDS: PERPHENAZINE 4 MG TAB PO SCH (20:27)
[2019-06-13] MEDS: DULoxetine HCL 30 MG CAPSULE.DR PO SCH (20:27)
[2019-06-13] MEDS: LORazepam 0.5 MG TAB PO PRN (22:05)
[2019-06-13] MEDS: CYCLOBENZAPRINE 10 MG TAB PO PRN (22:05)
[2019-06-13] MEDS: DICLOFENAC SODIUM GEL 100 GM TUBE TOPICAL SCH (22:54)
[2019-06-13] MEDS ORDERED: DIAZEPAM 5 MG TAB PO STA (23:17)
--- NOTE | 2019-06-13 23:23 | P.HPMEDMHU ---
History of Present Illness H&P Date: 06/13/19 (refreed by Era ) Chief Complaint: U HPI The patient is a 34-year-old obese female with a past medical history of bipolar 1 disorder, cocaine use disorder, PTSD, cluster B traits that is admitted to the mental health unit with suicidal ideation and expressing self- harm reporting "that she would cut her own throat or overdosing medications". Patient is referred here by [facility] and was last seen by crisis unit there and has had little follow-up. The patient is irritable, restless and anxious. She complains of chronic lower back pain and reports that she's previously had epidural injections steroids in her back is also done physical therapy previously. She denies being on any opiates in the outpatient setting. Patient was recently here and had lumbar x-rays 05/23/19 which shows degenerative disc disease consider lumbar MRI. Review of Systems Pertinent positives per HPI all other review of systems otherwise negative Past Medical History Past Medical History: Chest Pain / Angina Additional Past Medical History / Comment(s): Back pain, Positive tilt table test per patient, syncope History of Any Multi-Drug Resistant Organisms: None Reported Past Surgical History: Appendectomy, Tonsillectomy, Tubal Ligation Additional Past Surgical History / Comment(s): ovarian cyst removal, pins in ankle, colon surgery- fissure Past Anesthesia/Blood Transfusion Reactions: No Reported Reaction Smoking Status: Current every day smoker - Past Family History Father Family Medical History: No Reported History Additional Family Medical History / Comment(s): Father is alive for patient has had no contact with him. Mother Family Medical History: No Reported History Additional Family Medical History / Comment(s): Mother is alive at age 50 with history of pacemaker placement, bipolar and depression. Patient has 2 sisters one is healthy and one has mental illness. Patient has 2 boys that have ADHD. Medications and Allergies Home Medications Medication Instructions Recorded Confirmed Type DULoxetine HCL [Cymbalta] 30 mg PO HS 05/23/19 06/13/19 History Topiramate [Topamax] 300 mg PO HS 05/23/19 06/13/19 History buPROPion HCL [Wellbutrin XL] 150 mg PO HS 05/23/19 06/13/19 History busPIRone HCL [Buspar] 30 mg PO BID 05/23/19 06/13/19 History hydrOXYzine PAMOATE [Vistaril] 50 mg PO TID PRN 05/23/19 06/13/19 History Trilafon 8 Mg 24 mg PO HS 06/13/19 06/13/19 History Allergies Allergy/AdvReac Type Severity Reaction Status Date / Time aspirin AdvReac Bleeding Verified 06/13/19 10:03 ibuprofen [From Motrin] AdvReac Bleeding Verified 06/13/19 10:03 Physical Exam Vitals: Vital Signs Temp Pulse Pulse Resp BP BP Pulse Ox 06/13/19 14:55 96.6 F L 72 18 124/72 95 06/13/19 09:22 97.6 F 56 L 19 134/87 99 Intake and Output 06/13/19 06/13/19 06/13/19 06:59 14:59 22:59 Other: Weight 108.681 kg Constitutional: No acute distress, aggressive and restless Eyes: Anicteric sclerae, moist conjunctiva, no lid-lag, PERRLA ENMT: NC/AT,Oropharynx clear, no erythema, exudates Neck:Supple, FROM, no masses, or JVD, No carotid bruits; No thyromegaly Lungs: Clear to auscultation, Clear to percussion, Normal respiratory effort, no accessory muscle use Cardiovascular: Heart regular in rate and rhythm, No murmurs, gallops, or rubs no peripheral edema Abdominal: Soft Nontender, nom distended, no guarding, no rebound or rigidity, Normoactive bowel sounds No hepatomegaly, No splenomegaly, No palpable mass No abdominal wall hernia noted Skin: Normal temperature, tone, texture, turgor, No induration No subcutaneous nodules, No rash, lesions, No ulcers Extremities:No digital cyanosis No clubbing, Pedal pulses intact and symmetrical Radial pulses intact and symmetrical Normal gait and station, No calf tenderness Psychiatric: Alert and oriented to person, place and time, poor insight, irritable agitated, restless Neuro: Muscles Strength 5/5 in all 4 extremities, Sensation to light touch grossly present throughout, Cranial nerves II-XII grossly intact. No focal sensory deficits Cranial Nerve Examination - Cranial Nerves Cranial Nerve II- Optic: Intact Cranial Nerve III- Oculomotor: Intact Cranial Nerve IV- Trochlear: Intact Cranial Nerve V- Trigeminal: Intact Cranial Nerve - Abducens: Intact Cranial Nerve VII- Facial: Intact Cranial Nerve VIII- Auditory: Intact Cranial Nerve IX- Glossopharyngeal: Intact Cranial Nerve X- Vagus: Intact Cranial Nerve XI- Accessory: Intact Cranial Nerve XII- Hypoglossal: Intact Results Labs: Abnormal Lab Results - Last 24 Hours (Table) 06/13/19 06/13/19 Range/Units 09:40 09:40 Urine Protein 1+ H (Negative) Ur Squamous Epith Cells 5 H (0-4) /hpf Urine Bacteria Occasional H (None) /hpf Hyaline Casts 4 H (0-2) /lpf Urine Mucus Moderate H (None) /hpf Urine Methadone Screen Detected H (NotDetected) Urine Cocaine Screen Detected H (NotDetected) Thrombosis Risk Factor Assmnt - Choose All That Apply Any of the Below Risk Factors Present?: No Other Risk Factors: No Other congenital or acquired thrombophilia - If yes, enter type in comment: No Thrombosis Risk Factor Assessment Level: Very Low Risk Assessment and Plan Assessment: Lumbar DDD with back pain Suicidal ideation History of bipolar 1 disorder Cocaine use disorder Plan: The patient is admitted to the mental health unit we'll defer to acute inpatient psychiatry team regarding ongoing psychotropic medicinal therapy in coordination with cognitive behavioral therapy. Patient appears to have chronic back pain and recent lumbar x-ray suggests degenerative disc disease. We'll initiate some muscle relaxants Flexeril/valium and start NSAIDs with voltaren gel. Afebrile patient's pain persists consider pain management consult. We'll continue to follow her clinical course Further questions please not hesitate to contact the sound inpatient team,
[2019-06-14] MEDS: DICLOFENAC SODIUM GEL 100 GM TUBE TOPICAL SCH ×4 (08:10→21:25)
[2019-06-14] MEDS: LORazepam 0.5 MG TAB PO PRN (08:12)
[2019-06-14] MEDS: CYCLOBENZAPRINE 10 MG TAB PO PRN ×2 (08:14→20:37)
[2019-06-14] MEDS: ACETAMINOPHEN TAB 325 MG TAB PO PRN ×3 (08:14→20:38)
[2019-06-14] MEDS: PERPHENAZINE 4 MG TAB PO SCH (09:30)
[2019-06-14] MEDS: busPIRone HCl 10 MG TAB PO SCH ×2 (09:33→20:39)
[2019-06-14] MEDS: buPROPion 75 MG TAB PO SCH (09:33)
[2019-06-14] MEDS: NICOTINE 14MG/24HR PATCH TRANSDERM SCH (09:33)
--- NOTE | 2019-06-14 12:14 | P.HP ---
Psychiatric H&P - . H&P Date: 06/14/19 History & Physical: Allergies Allergy/AdvReac Type Severity Reaction Status Date / Time aspirin AdvReac Bleeding Verified 06/13/19 10:03 ibuprofen From Motrin AdvReac Bleeding Verified 06/13/19 10:03 Vital Signs Temp 98.0 F 06/14/19 06:38 Pulse 75 06/14/19 07:50 Resp 16 06/14/19 07:50 BP 109/78 06/14/19 07:50 Pulse Ox 95 06/13/19 14:55 Intake & Output 06/13/19 06/14/19 06/14/19 18:59 06:59 18:59 Weight 108.681 kg Laboratory Last Values Urine Color Yellow 06/13/19 09:40 Urine Appearance Clear (Clear) 06/13/19 09:40 Urine pH 6.0 (5.0-8.0) 06/13/19 09:40 Ur Specific [place] 1.025 (1.001-1.035) 06/13/19 09:40 Urine Protein 1+ (Negative) H 06/13/19 09:40 Ur Protein Confirm PROPERTY DAMAGE CLAIMS ADJUSTOR 06/13/19 09:40 Urine Glucose (UA) Negative (Negative) 06/13/19 09:40 Urine Ketones Negative (Negative) 06/13/19 09:40 Urine Blood Large (Negative) 06/13/19 09:40 Urine Nitrite Negative (Negative) 06/13/19 09:40 Urine Bilirubin Negative (Negative) 06/13/19 09:40 Urine Urobilinogen 0.2 mg/dL (<2.0) 06/13/19 09:40 Ur Leukocyte Esterase Negative (Negative) 06/13/19 09:40 Urine RBC 4 /hpf (0-5) 06/13/19 09:40 Urine WBC 4 /hpf (0-5) 06/13/19 09:40 Ur Squamous Epith Cells 5 /hpf (0-4) H 06/13/19 09:40 Urine Bacteria Occasional /hpf (None) H 06/13/19 09:40 Hyaline Casts 4 /lpf (0-2) H 06/13/19 09:40 Urine Mucus Moderate /hpf (None) H 06/13/19 09:40 Urine HCG, Qual Not Detected (Not Detectd) 06/13/19 09:40 Urine Opiates Screen Not Detected (NotDetected) 06/13/19 09:40 Ur Oxycodone Screen Not Detected (NotDetected) 06/13/19 09:40 Urine Methadone Screen Detected (NotDetected) H 06/13/19 09:40 Ur Propoxyphene Screen Not Detected (NotDetected) 06/13/19 09:40 Ur Barbiturates Screen Not Detected (NotDetected) 06/13/19 09:40 U Tricyclic Antidepress Not Detected (NotDetected) 06/13/19 09:40 Ur Phencyclidine Scrn Not Detected (NotDetected) 06/13/19 09:40 Ur Amphetamines Screen Not Detected (NotDetected) 06/13/19 09:40 U Methamphetamines Scrn Not Detected (NotDetected) 06/13/19 09:40 U Benzodiazepines Scrn Not Detected (NotDetected) 06/13/19 09:40 Urine Cocaine Screen Detected (NotDetected) H 06/13/19 09:40 U Marijuana (THC) Screen Not Detected (NotDetected) 06/13/19 09:40 06/14/19 11:59 IDENTIFYING DATA: Patient is a 34-year-old female who was recently residing at [facility] and has a history of bipolar disorder type I PTSD and polysubstance abuse. HPI: Patient presented to the hospital yesterday with the complaints of suicidal ideations with a plan to overdose on cocaine. Patient stated to the ER doc that she has been off medications for 3 weeks now and was referred by [facility] to be evaluated. Patient apparently has had little follow-up. Patient was admitted to the mental health floor and initially signed adult voluntary form however soon after signed AMA on 06/13/2019 in the morning. Patient has been refusing to take medications except for her pain medications which were prescribed by her hospitalist. Patient has a history of bipolar type I disorder PTSD and polysubstance abuse. She has a history of being followed up at [facility]. Patient was last admitted to a psychiatric unit in March 2019 at [facility]. Patient was attempted to be evaluated by automobile service writer however patient did not want to leave her room and was irritable/uncooperative. She was noted to be in her bed and covering herself with her blankets and appeared to have poor hygiene and grooming. Patient demanded the automobile service writer leaves a room and states that she did not want to talk. She claims that "my back hurts" and also stated "I don't have to talk to you I ready sign myself out". Patient did not answer any other questions related to her mood, anxiety or sleep or appetite. Patient denies any suicidal or homicidal ideations intent or plan. At this time patient denies any auditory or visual hallucinations. Patient's UDS was positive for methadone and cocaine. Patient also has a history of using cigarettes. PAST PSYCHIATRIC HISTORY: Patient was previously diagnosed with bipolar type I disorder PTSD and polysubstance abuse. Most recent psychiatric hospitalization was in March 2019 at [facility]. Patient follows up at [facility] over his had little contact with them. Patient is currently on Cymbalta 30 mg daily at bedtime Wellbutrin 150 mg at bedtime BuSpar 30 mg twice a day Vistaril 50 mg 3 times a day and Trilafon 8 mg 3 times a day. PMH: Degenerative joint disease, chest pain/anxiety ALLERGIES: as per EMR CHEMICAL DEPENDENCY HISTORY: as per HPI FAMILY PSYCHIATRIC/SUBSTANCE USE HISTORY: Did not answer SOCIAL HISTORY: Patient was not cooperative with the questions related to her social history. Patient was known to be residing at [facility] previously. MENTAL STATUS EXAM: General Appearance: Patient appears to be stated age is lethargic, irritable/hostile and uncooperative with automobile service writer. Patient appears to have poor hygiene and grooming. Behavior: Patient is laying in her bed with the sheets covering herself, uncooperative and hostile with automobile service writer. Speech: Patient's speech is fluent and nonpressured. Poverty of speech. Mood/Affect: Patient reports their mood is unable to be assessed at this time, affect is congruent and constricted. Suicidality/Homicidality: Patient denies having any homicidal ideation intent or plan. Denies any suicidal ideations intent or plan Perceptions: Patient denies any visual hallucinations and denies any auditory hallucinations Though content/process: Patient is evasive, uncooperative. Poverty of content/speech Memory and concentration: Patient unwilling to cooperate with cognitive exam. Judgment and insight: poor/impulsive STRENGTHS/WEAKNESSES: strength is that patient is resilient. Weakness is that patient has poor judgment and is impulsive INTELLECT: average IMPRESSIONS: Bipolar disorder type I, currently depressed History of PTSD Cocaine abuse Opiate abuse Nicotine dependence PLAN: -Patient is admitted under voluntary status to MHU for stabilization of psychiatric symptoms and safety. Patient signed adult voluntary form and medication consent and is placed in patient's chart however patient also signed AMA shortly after on 06/13/2019. Will evaluate patient to see if certification and petition need to be filed for court. -Medications : Will start patient on Abilify 5 mg daily for mood stabilization. Vistaril 50 mg 3 times a day when necessary for anxiety. BuSpar 30 mg twice a day for anxiety. Cymbalta 30 mg at bedtime for mood/pain. -Ativan and Geodon PRN for agitation/aggression -Patient was counselled on substance abuse however patient did not comment on this -Patient was informed of the risks, benefits and side effects of the medication however patient claims that she did not want to take her medications. -MAPS reviewed and was negative for any controlled substances. Patient's UDS on admission was positive for methadone and cocaine. -Internal Medicine consult to perform medical evaluation and physical. -NRT - nicotine patch -SW on board for discharge planning. Encourage patient to participate in groups to work on coping skills. Will evaluate tomorrow once again to see about need to file certification and petition to court. 06/14/19 12:06
[2019-06-14] MEDS: ARIPiprazole 5 MG TAB PO SCH ×2 (12:41→13:15)
[2019-06-14] MEDS: DULoxetine HCL 30 MG CAPSULE.DR PO SCH (20:39)
[2019-06-15] MEDS: CYCLOBENZAPRINE 10 MG TAB PO PRN ×3 (10:38→21:31)
[2019-06-15] MEDS: ACETAMINOPHEN TAB 325 MG TAB PO PRN ×3 (10:38→21:31)
[2019-06-15] MEDS: ARIPiprazole 5 MG TAB PO SCH (10:40)
[2019-06-15] MEDS: DICLOFENAC SODIUM GEL 100 GM TUBE TOPICAL SCH ×4 (10:40→21:33)
[2019-06-15] MEDS: busPIRone HCl 10 MG TAB PO SCH ×2 (10:40→21:33)
[2019-06-15] MEDS: NICOTINE 14MG/24HR PATCH TRANSDERM SCH (10:41)
--- NOTE | 2019-06-15 11:07 | P.PN ---
Progress Note - Text Progress Note Date: 06/15/19 Interval History: Patient was seen laying in her bed in her room and was covering herself with her blankets and appeared to be irritable this morning. Patient was continuing to be uncooperative and hostile with technical proposal writer and swore at him. Patient demanded technical proposal writer to leave the room and stated multiple times "I don't want to talk about it" to most questions. Patient claims that her mood is "fine" however has an incongruent and blunted affect. Patient is preoccupied with her pain medications and to be discharged from the unit. When asked about suicidal ideations patient states "don't ask me that" and did not answer questions related to her homicidal ideations or any auditory/visual hallucinations. Patient continues to be only taking pain medications and is preoccupied with receiving more meds however is not taking any of her other medications at this time. Mental Status Exam: General Appearance: Patient appears to be stated age is lethargic, irritable/hostile and uncooperative with technical proposal writer. Patient appears to have poor hygiene and grooming. Behavior: Patient is laying in her bed with the sheets covering herself, uncooperative and hostile with technical proposal writer. Speech: Patient's speech is fluent and nonpressured. Poverty of speech. Mood/Affect: Patient mood is unable to be assessed at this time, affect is congruent and constricted. Suicidality/Homicidality: Unable to assess at this time Perceptions: Unable to assess at this time. Though content/process: Patient is evasive, uncooperative. Poverty of content/speech Memory and concentration: Patient unwilling to cooperate with cognitive exam. Judgment and insight: poor/impulsive Assessment Bipolar disorder type I, currently depressed History of PTSD Cocaine abuse Opiate abuse Nicotine dependence Plan: -Patient is admitted under voluntary status to MHU for stabilization of psychiatric symptoms and safety. Patient signed adult voluntary form and declined signing medication consent form and is placed in patient's chart however patient also signed AMA shortly after admission on 06/13/2019. We'll complete 2 certifications today and also petition for treatment and hospitalization. -Medications: Continue with Abilify 5 mg daily for mood stabilization, Vistaril 50 mg 3 times a day one necessary for anxiety, BuSpar 30 mg twice a day for anxiety, Cymbalta 30 milligrams at bedtime for mood/pain. -When necessary Geodon and Ativan for agitation/aggression. -MAPS reviewed - negative for any controlled substances. Patient's UDS on admission was positive for methadone and cocaine. -Internal Medicine following a long for medical evaluation/management along with pain management recommendations. -NRT - nicotine patch -SW on board for discharge planning. Encourage patient to participate in groups to work on coping skills. We'll await deferral and court date after filing for court today.
[2019-06-15] MEDS ORDERED: traMADol 50 MG TAB PO STA (11:57)
--- NOTE | 2019-06-15 11:57 | P.PAINCN ---
History of Present Illness - Reason for Consult Consult date: 06/15/19 - History of Present Illness Gilda is an 34-year-old female who presented to the emergency room yesterday secondary suicidal ideations. She had a plan to commit suicide by overdosing on cocaine. She has a long history of suicidal thoughts, bipolar disorder, chronic PTSD, and has had multiple inpatient psychiatric admissions. she is a 34-year-old female with an obese stature, she is disheveled, has chronic back pa in and has had x-rays of the lumbar spine which showed evidence of degenerative disc disease. Patient was seen in her room today on the mental health [facility]. She was laying in bed. She did remove the covers to speak with me. She appeared a bit disheveled. She answered questions appropriately. She reported that she hurt her back a few months ago after lifting a heavy dresser. At the time and if she reports she went to her primary care physician where they gave her cortisone injection subcu and what sounds like an oral steroid. They had asked for her to participate in physical therapy which she had begun doing. She wasn't getting any better. At this point she reports she continues to have pain across her low back but mostly over the left side of her upper buttock. She reports an aching and sharp pain that radiates into her thigh posteriorly to the back of the knee. She denies any numbness or tingling or burning sensation. She denies any extends beyond the knee and all. She denies any weakness of the leg. She reports she's tried all [id number] medications with no relief. She is inquiring about pain medications. I discussed with her that her urine drug screen showed that she had methadone in her urine, after denying using any pain medication she then mentioned that she used it for a couple days because she was unable to get any pain medications from any other doctors. Denies any chest pain shortness of breath, headaches nausea or vomiting. Denies any lower extremity numbness tingling. Denies any bowel or bladder incontinence. Denies any chest pain, irregular heartbeats. MAPS Negative for any controlled substance prescriptions in [place] and surrounding states. Review of Systems Negative except as noted in the HPI Past Medical History Past Medical History: Chest Pain / Angina Additional Past Medical History / Comment(s): Back pain, Positive tilt table test per patient, syncope History of Any Multi-Drug Resistant Organisms: None Reported Past Surgical History: Appendectomy, Tonsillectomy, Tubal Ligation Additional Past Surgical History / Comment(s): ovarian cyst removal, pins in ankle, colon surgery- fissure Past Anesthesia/Blood Transfusion Reactions: No Reported Reaction Smoking Status: Current every day smoker - Past Family History Father Family Medical History: No Reported History Additional Family Medical History / Comment(s): Father is alive for patient has had no contact with him. Mother Family Medical History: No Reported History Additional Family Medical History / Comment(s): Mother is alive at age 50 with history of pacemaker placement, bipolar and depression. Patient has 2 sisters one is healthy and one has mental illness. Patient has 2 boys that have ADHD. Medications and Allergies Home Medications Medication Instructions Recorded Confirmed Type DULoxetine HCL [Cymbalta] 30 mg PO HS 05/23/19 06/13/19 History Topiramate [Topamax] 300 mg PO HS 05/23/19 06/13/19 History buPROPion HCL [Wellbutrin XL] 150 mg PO HS 05/23/19 06/13/19 History busPIRone HCL [Buspar] 30 mg PO BID 05/23/19 06/13/19 History hydrOXYzine PAMOATE [Vistaril] 50 mg PO TID PRN 05/23/19 06/13/19 History Trilafon 8 Mg 24 mg PO HS 06/13/19 06/13/19 History Allergies Allergy/AdvReac Type Severity Reaction Status Date / Time aspirin AdvReac Bleeding Verified 06/13/19 10:03 ibuprofen [From Motrin] AdvReac Bleeding Verified 06/13/19 10:03 Physical Exam Vitals: Vital Signs Temp Pulse Resp BP 06/15/19 06:26 97.9 F 53 L 16 101/56 General: Awake, she was alert, answered questions appropriately. She did not appear in any distress Respiratory exam: No audible wheezing no accessory muscle usage Cardiovascular exam: regular rate, palpable bilateral pulses, no lower extremity edema Cervical spine: She had normal range of motion of the cervical spine with apparent normal alignment. Spurling's is negative bilaterally. Upper extremity motor strength is 5 out of 5. Lumbar spine: Patient has an obese midline, she has flattening of the lumbar spine. She is atrophy of the paraspinal muscles. Straight leg raise is negative bilaterally. Hip joint range of motion is normal. She has tenderness to palpation over the left low back and over the left upper buttock. There is tenderness palpation over the sacroiliac joint on the left side. There is pain with sacroiliac joint manipulation on the left side. Neuro exam: Normal sensation in bilateral upper extremities, deep tendon reflexes are 2+ bilateral upper extremities. Normal sensation in bilateral lower extremities. Deep tendon reflexes are 2+ in lower extremities Psych exam: Cooperative, appropriate mood, answered all questions appropriately Results Labs: Urine drug screen was positive for methadone and cocaine high levels Assessment and Plan Assessment: #1 bipolar disorder #2 substance abuse disorder #3 suicidal ideation #4 morbid obesity Plan: After review of the medical records, examination of the patient. I believe the patient may have some evidence of sacroiliitis on left sign. This is a chronic issue and is not in the knees to be addressed acutely. I believe the patient has other pressing medical issues and need to be treated before treating her pain. I believe her pain is also related to her chronic mental health issues. I believe her pain also likely make be contributing to her mental health issues. At this point I discussed with the patient that opioid therapy is not a good long-term option for her pain in will not make her pain any better. We discussed the risks of using opioid medications for long periods as they would likely be detrimental to her health. She inquired about using some pain medication during her hospitalization here. I advised that we would give her very low-dose once a day 50 mg tramadol just to be used while in the hospital and she would not have any additional tablets to go home with as this would not offer any benefit. Ulcer concerned that she had suicidal ideations and the risk of overdose when she goes home. I've advised her to follow-up with her primary care doctor and have a referral to a pain clinic to potentially treat the sacroiliac joint dysfunction. PQRS Measure Charge Sheet Measure #130: Documentation of Current Meds in Medical Chart: Patient's medications documented in chart Measure #226: Tobacco Use: Screen & Cessation Intervention: Pt screened for tobacco use AND intervention given Measure #111: Pneumonia Vaccination: Pneumococcal vaccine NOT administered or previously given Measure #47: Advance Care Plan: Advance care planning discussed & documented, plan or surrogate given Measure #317: Preventitive Care & Scrn High Bld Press & F/U: Normal blood pressure, f/u not required Measure #128: Body Mass Index (BMI) Screening & Follow-up: BMI documented ABOVE normal parameters - f/u documented Measure #131: Pain Assessment & Follow-up: Pain positive & plan documented Measure #431: Unhealthy Alcohol Use Preventative Care & Scrn: Patient not identified as an unhealthy alcohol user PQRS Narrative: Smoking Status Current every day smoker Blood Pressure [Left Arm] 101/56 Blood Pressure 134/87 Pain Intensity [Lower Back] 0 Pain Intensity 0 Pain Scale Used Numeric (1 - 10) Scale Used Numeric (1 - 10) Home Medications: Ambulatory Orders DULoxetine HCL [Cymbalta] 30 mg PO HS 05/23/19 Topiramate [Topamax] 300 mg PO HS 05/23/19 buPROPion HCL [Wellbutrin XL] 150 mg PO HS 05/23/19 busPIRone HCL [Buspar] 30 mg PO BID 05/23/19 hydrOXYzine PAMOATE [Vistaril] 50 mg PO TID PRN 05/23/19 Trilafon 8 Mg 24 mg PO HS 06/13/19
[2019-06-15] MEDS ORDERED: traMADol 50 MG TAB PO PRN (13:36)
[2019-06-15] MEDS: DULoxetine HCL 30 MG CAPSULE.DR PO SCH (21:34)
[2019-06-16] MEDS: busPIRone HCl 10 MG TAB PO SCH ×3 (09:42→21:06)
[2019-06-16] MEDS: ARIPiprazole 5 MG TAB PO SCH ×2 (09:42→09:52)
[2019-06-16] MEDS: NICOTINE 14MG/24HR PATCH TRANSDERM SCH ×2 (09:47→09:52)
[2019-06-16] MEDS: DICLOFENAC SODIUM GEL 100 GM TUBE TOPICAL SCH ×4 (09:47→21:05)
[2019-06-16] MEDS: ACETAMINOPHEN TAB 325 MG TAB PO PRN ×2 (16:23→21:07)
[2019-06-16] MEDS: CYCLOBENZAPRINE 10 MG TAB PO PRN ×2 (16:25→21:07)
--- NOTE | 2019-06-16 18:33 | PN ---
PROGRESS NOTE DATE OF SERVICE: 06/16/2019 CHIEF COMPLAINT: The patient had suicidal thinking with a plan to overdose. She has been off medications for 3 weeks. She has been refusing medications except pain medications. INTERVAL HISTORY: The patient continues to struggle. She is very focused on pain medications. She seeks out staff frequently asking for various pain medications. Beyond that she mostly isolates. She has not been attending groups. She does not interact with staff or peers. Last evening she spent most of her time in bed. She slept fairly well last night. Today things have been about the same for her. She was out briefly, though when I tried to encourage her to come down to the office and talk, she declined and went back to her room. I saw her two different times when she was in her room, though she would only say that she did not want to talk. She had a deferral meeting this morning and declined, though she is set up for a court hearing on June 22. I made an effort to review the court issues with the patient, though it was not clear that she took in much of the information in any meaningful way. She was not able to give any information in regard to substance use issues, given that her urine drug screen was positive for methadone and cocaine. MENTAL STATUS EXAMINATION: Patient was up at one point though gave very little eye contact. She made some random comment and then walked away. At two other times when I saw her in her room she was lying down and said she did not have anything to say. Her affect was flat, her mood apparently depressed. She seemed to be significantly distressed. It was difficult to assess for thought disorder. ASSESSMENT: I will continue the current diagnosis and treatment plan. We will continue to encourage the patient to make efforts to engage in some of the activities on the unit as well as interaction with staff and her physicians. We will focus on stabilization and discharge planning. MMCECILYL / YOJANAN: [id number] /
[2019-06-16] MEDS: traMADol 50 MG TAB PO PRN (18:39)
[2019-06-16] MEDS: DULoxetine HCL 30 MG CAPSULE.DR PO SCH (21:06)
[2019-06-17] MEDS: ARIPiprazole 5 MG TAB PO SCH (08:56)
[2019-06-17] MEDS: busPIRone HCl 10 MG TAB PO SCH ×3 (08:56→21:23)
[2019-06-17] MEDS: NICOTINE 14MG/24HR PATCH TRANSDERM SCH (08:57)
[2019-06-17] MEDS: DICLOFENAC SODIUM GEL 100 GM TUBE TOPICAL SCH ×5 (08:57→21:23)
[2019-06-17] MEDS: traMADol 50 MG TAB PO PRN (13:15)
[2019-06-17] MEDS: CYCLOBENZAPRINE 10 MG TAB PO PRN (13:15)
[2019-06-17] MEDS: hydrOXYzine PAMOATE 25 MG CAP PO PRN (13:15)
[2019-06-17] MEDS ORDERED: IBUPROFEN 800 MG TAB PO ONE (14:50)
[2019-06-17] MEDS: OLANZapine 10 MG TAB PO SCH ×2 (15:02→21:23)
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
[2019-06-17] MEDS: IBUPROFEN 800 MG TAB PO SCH (18:19)
[2019-06-17] MEDS: DULoxetine HCL 30 MG CAPSULE.DR PO SCH (21:23)
[2019-06-17] MEDS: PRAZOSIN 1 MG CAP PO SCH (21:23)
[2019-06-17] MEDS ORDERED: IBUPROFEN 800 MG TAB PO SCH (22:00)
[2019-06-18] MEDS: IBUPROFEN 800 MG TAB PO SCH ×3 (08:42→16:06)
[2019-06-18] MEDS: busPIRone HCl 10 MG TAB PO SCH ×2 (08:43→20:38)
[2019-06-18] MEDS: NICOTINE 14MG/24HR PATCH TRANSDERM SCH (08:43)
[2019-06-18] MEDS: DICLOFENAC SODIUM GEL 100 GM TUBE TOPICAL SCH ×4 (08:43→16:03)
[2019-06-18] MEDS: OLANZapine 10 MG TAB PO SCH ×2 (08:43→20:38)
[2019-06-18] MEDS: CYCLOBENZAPRINE 10 MG TAB PO PRN ×2 (08:44→20:41)
--- NOTE | 2019-06-18 11:31 | P.PN ---
Progress Note - Text Interval history: The patient is found in her room she follows me to an interview room. She carries a diagnosis of bipolar disorder as well as substance use disorders. She was taken off of Abilify yesterday and started on Zyprexa 10 mg twice daily. We reviewed that medication her questions were answered. She is aware that this may stimulate her appetite leading to weight gain. She was started on Minipress. Blood pressure was low this morning but she states it does help with her night terrors and she wishes to continue that medication. She has not been attending groups so far. She has been going down to meals. She states that she is still considering whether or not she wants to attend inpatient chemical dependency treatment. She's not particularly motivated to participate in the interview this morning. Mental status exam: The patient is a female appearing her stated age she is overweight she is dressed in her own clothing. Eye contact is appropriate speech is fluent spontaneous nonpressured. She maintains a constricted to irritable affect during the session. She demonstrates no verbal or physical aggressiveness. Briefly I did notice some lateral movement of her lower jaw. She states that that was present more significantly when she was on Trilafon. She reports feeling safe in the hospital in terms of suicidal thoughts she is endorsing no homicidal ideation. She indicates experiencing an auditory hallucination that's whispering and difficult to understand she last heard that yesterday evening. No visual hallucinations. She indicates she feels safe. Insight and judgment limited. She demonstrates no verbal or physical aggressiveness. She demonstrates no tangential thinking loose a ssociations or flight of ideas. Plan: The patient will continue on her current psychotropic medication. We may consider reducing the Minipress. She will monitor for any side effects related to the Zyprexa. She is convinced that she did not do well with the Abilify that was used in the past. She is encouraged to continue considering inpatient chemical dependency treatment. We will monitor her for safety and encourage participation in the milieu.
[2019-06-18] MEDS: hydrOXYzine PAMOATE 25 MG CAP PO PRN (16:05)
[2019-06-18] MEDS: ACETAMINOPHEN TAB 325 MG TAB PO PRN ×2 (16:05→20:41)
[2019-06-18] MEDS: DULoxetine HCL 30 MG CAPSULE.DR PO SCH (20:38)
[2019-06-18] MEDS: PRAZOSIN 1 MG CAP PO SCH (20:38)
[2019-06-19] MEDS: busPIRone HCl 10 MG TAB PO SCH ×3 (09:46→21:33)
[2019-06-19] MEDS: DICLOFENAC SODIUM GEL 100 GM TUBE TOPICAL SCH ×4 (09:46→21:35)
[2019-06-19] MEDS: IBUPROFEN 800 MG TAB PO SCH ×4 (09:46→21:33)
[2019-06-19] MEDS: OLANZapine 10 MG TAB PO SCH ×3 (09:47→21:34)
[2019-06-19] MEDS: NICOTINE 14MG/24HR PATCH TRANSDERM SCH (09:47)
--- NOTE | 2019-06-19 12:43 | P.PN ---
Progress Note - Text Interval history: The patient's found in her room she follows me to an interview room. She indicates that her moods improving. She is looking forward to a visit from her friend this evening. She states that she is decided that she will not attend inpatient chemical dependency treatment. She states she just needs to reside with her friend and get a job. She is concerned about her chronic back pain and she plans on going back to pain management and receiving injections. She has no questions or concerns regarding her psychotropic medications. Again her blood pressure was low in the morning but she states that the Minipress is valuable in terms of addressing night terrors. She does not wish to reduce that dose. She has been staying in her room she is not attending groups. Mental status exam: The patient's a tall overweight female she seated calmly eye contact is appropriate. She initiates little conversation but does respond to questions. She states that mood is getting better she is reporting no suicidal or homicidal ideation intent or plan she is reporting no auditory or visual hallucinations other than infrequent whispering she cannot tell what's being said. She is demonstrating no tangential thinking loose associations or flight of ideas. There is no evidence of hypomania or dmitri. She demonstrates no verbal or physical aggressiveness or any involuntary repetitive movements. Insight and judgment are slowly improving. She remains oriented to person place and date. Affect remains constricted. Plan: The patient will continue on her current psychotropic medication. We will monitor for safety and encourage participation in the milieu. Vital signs reviewed.
[2019-06-19] MEDS: PRAZOSIN 1 MG CAP PO SCH (21:33)
[2019-06-19] MEDS: DULoxetine HCL 30 MG CAPSULE.DR PO SCH (21:34)
[2019-06-20] MEDS: IBUPROFEN 800 MG TAB PO SCH ×3 (08:33→17:20)
[2019-06-20] MEDS: DICLOFENAC SODIUM GEL 100 GM TUBE TOPICAL SCH ×4 (08:34→21:36)
[2019-06-20] MEDS: busPIRone HCl 10 MG TAB PO SCH ×2 (08:34→21:16)
[2019-06-20] MEDS: NICOTINE 14MG/24HR PATCH TRANSDERM SCH (08:35)
[2019-06-20] MEDS: OLANZapine 10 MG TAB PO SCH (08:35)
--- NOTE | 2019-06-20 12:39 | P.PN ---
Progress Note - Text Progress Note Date: 06/20/19 Interval History: Patient was seen laying in her bed in her room and was covering herself with her blankets and was more directable and agreeable to speak to tag writer today in the office. Patient was more appropriate with tag writer during conversation and willing to engage. She continues to focus on her pain in her back however does claim that the medication is helping her with her mood and staying "calmer". She states that she is sleeping better at night however feels groggy during the day from the Zyprexa. Patient claims that her mood is "fine" and was focused on discharge. She states that she is having less nightmares being on the prazosin and wants to continue on the same dose. At this time patient denies any suicidal or homicidal ideations intent or plan and denies any visual hallucinations however did state that she hears quiet "mumbling" when asked about auditory hallucinations. Patient does not endorse any delusions. Patient continues to demonstrate limited judgment and insight with regard to her substance abuse. Mental Status Exam: General Appearance: Patient appears to be stated age is tall, stated age and is directable and attempts to cooperate. Patient appears to have improving hygiene and grooming. Wearing hospital gown. Behavior: Patient is sitting on the chair with no agitation, attempts to cooperate. Speech: Patient's speech is fluent and nonpressured. Mood/Affect: Patient mood is unable to be assessed at this time, affect is congruent and constricted. Suicidality/Homicidality: Denies Perceptions: Denies any visual hallucinations however admits to mild auditory hallucinations. Though content/process: Patient is more organized, goal oriented. Logical and appropriate. Memory and concentration: Alert and oriented 3, fair attention span. Judgment and insight: poor, improving mildly. Assessment Bipolar disorder type I, currently depressed History of PTSD Cocaine abuse Opiate abuse Nicotine dependence Plan: -Patient is admitted under voluntary status to [facility] for stabilization of psychiatric symptoms and safety. Patient signed adult voluntary form and declined signing medication consent form and is placed in patient's chart however patient also signed AMA shortly after admission on 06/13/2019. Patient declined signing deferral on Thursday however at this time is agreeable to signing deferral for treatment from the chemical manager. -Medications: We will decrease Zyprexa to 15 mg daily at bedtime for mood stabilization/psychosis. Continue with Vistaril 50 mg 3 times a day one necessary for anxiety, BuSpar 30 mg twice a day for anxiety, Cymbalta 30 milligrams at bedtime for mood/pain. Continue with prazosin 2 mg daily at bedtime for nightmares. -When necessary Geodon for agitation/aggression. -MAPS reviewed - negative for any controlled substances. Patient's UDS was positive for methadone and cocaine. Patient was offered inpatient substance use rehab and patient declined at this time. -Diclofenac gel and Flexeril when necessary recommended by hospitalist for pain. Patient will be following up with pain clinic upon discharge. -NRT - nicotine patch -SW on board for discharge planning. Encourage patient to participate in groups to work on coping skills. Court date is set for Thursday at 9:30 AM however patient would like to sign deferral as soon as she can.
[2019-06-20 15:30] VITALS: BMI 34.7
[2019-06-20] MEDS: DULoxetine HCL 30 MG CAPSULE.DR PO SCH (21:15)
[2019-06-20] MEDS: OLANZapine 5 MG TAB PO SCH (21:15)
[2019-06-20] MEDS: ACETAMINOPHEN TAB 325 MG TAB PO PRN (21:16)
[2019-06-20] MEDS: CYCLOBENZAPRINE 10 MG TAB PO PRN (21:16)
[2019-06-20] MEDS: PRAZOSIN 1 MG CAP PO SCH (21:16)
[2019-06-21 06:56] VITALS: RESP 14
[2019-06-21] MEDS: IBUPROFEN 800 MG TAB PO SCH ×3 (08:22→17:31)
[2019-06-21] MEDS: busPIRone HCl 10 MG TAB PO SCH ×2 (08:23→20:38)
[2019-06-21] MEDS: CYCLOBENZAPRINE 10 MG TAB PO PRN ×2 (08:24→14:33)
[2019-06-21] MEDS: DICLOFENAC SODIUM GEL 100 GM TUBE TOPICAL SCH ×4 (08:25→20:40)
[2019-06-21] MEDS: NICOTINE 14MG/24HR PATCH TRANSDERM SCH (08:30)
--- NOTE | 2019-06-21 10:38 | P.PN ---
Progress Note - Text Progress Note Date: 06/21/19 Interval History: Patient was seen laying in bed this morning and was more directable and agreea ble to speak to procedure writer today in the office. Patient was more appropriate today and answered questions regarding her night last night. She states that she slept through the night and claimed that she likes Zyprexa dose at nighttime only. She states that she is been feeling calmer and "better" with regards to her mood. She states that she has a fair appetite and better energy during the day. She claims that her Cymbalta used to be at 60 mg and was requesting to have that increased today. She also stated that she went to 2 groups yesterday and trying to make more of an effort today. Patient was focused on discharge and states that she still does not want to go to rehab at this time and will do outpatient substance use treatment. She states that she is having less nightmares being on the prazosin and wants to continue on the same dose. At this time patient denies any suicidal or homicidal ideations intent or plan and denies any auditory or visual hallucinations Patient does not endorse any delusions. Mental Status Exam: General Appearance: Patient appears to be stated age is tall, stated age and is directable and attempts to cooperate. Patient appears to have improving hygiene and grooming. Wearing hospital gown. Behavior: Patient is sitting on the chair with no agitation, attempts to cooperate. Speech: Patient's speech is fluent and nonpressured. Mood/Affect: Patient mood is improving, affect is congruent and constricted. Suicidality/Homicidality: Denies Perceptions: Denies any visual hallucinations or auditory hallucinations. Though content/process: Patient is more organized, goal oriented. Logical and appropriate. Memory and concentration: Alert and oriented 3, fair attention span. Judgment and insight: improving mildly. Assessment Bipolar disorder type I, currently depressed History of PTSD Cocaine abuse Opiate abuse Nicotine dependence Plan: -Patient is admitted under voluntary status to [facility] for stabilization of psychiatric symptoms and safety. Patient signed adult voluntary form and declined signing medication consent form and is placed in patient's chart however patient also signed AMA shortly after admission on 06/13/2019. Patient declined signing deferral on Thursday however at this time is agreeable to signing deferral for treatment from the survey operations director. -Medications: We will continue with Zyprexa to 15 mg daily at bedtime for mood stabilization/psychosis. Continue with Vistaril 50 mg 3 times a day one necessary for anxiety, BuSpar 30 mg twice a day for anxiety, will increase Cymbalta 60 milligrams at bedtime for mood/pain. Continue with prazosin 2 mg daily at bedtime for nightmares. -When necessary Geodon for agitation/aggression. -MAPS reviewed - negative for any controlled substances. Patient's UDS was positive for methadone and cocaine. Patient was offered inpatient substance use rehab and patient declined at this time. -Diclofenac gel and Flexeril when necessary recommended by hospitalist for pain. Patient will be following up with pain clinic upon discharge. -NRT - nicotine patch -SW on board for discharge planning. Encourage patient to participate in groups to work on coping skills. Court date is set for Thursday the at 9:30 AM however patient would like to sign deferral today. Likely discharge to friend's house tomorrow.
[2019-06-21] MEDS: PRAZOSIN 1 MG CAP PO SCH (20:38)
[2019-06-21] MEDS: OLANZapine 5 MG TAB PO SCH (20:38)
[2019-06-21] MEDS ORDERED: DULoxetine HCL 60 MG CAPSULE.DR PO SCH (21:00)
[2019-06-22 06:30] VITALS: BP 92/51; PULSE 53; TEMP 97.5
[2019-06-22] MEDS: busPIRone HCl 10 MG TAB PO SCH (07:53)
[2019-06-22] MEDS: IBUPROFEN 800 MG TAB PO SCH (07:53)
[2019-06-22] MEDS: DICLOFENAC SODIUM GEL 100 GM TUBE TOPICAL SCH (08:05)
[2019-06-22] MEDS: NICOTINE 14MG/24HR PATCH TRANSDERM SCH (08:05)
--- NOTE | 2019-06-22 10:04 | P.DS ---
Providers Date of admission: 06/13/19 13:28 Expected date of discharge: 06/22/19 Attending physician: Amrit Girard MD Consults: 06/13/19 14:19 Consult Physician Routine Consulting Provider: Paige Mars Consult Reason/Comments: H&P for mental health admission Do you want consulting provider notified?: Yes Primary care physician: Stated None - Discharge Diagnosis(es) (1) Bipolar disorder with psychotic features Current Visit: Yes Status: Acute Priority: High (2) History of posttraumatic stress disorder (PTSD) Current Visit: Yes Status: Acute Priority: Low (3) Cocaine abuse Current Visit: Yes Status: Acute Priority: Medium (4) Opioid abuse Current Visit: Yes Status: Acute Priority: Medium (5) Nicotine dependence Current Visit: Yes Status: Acute Priority: Low Hospital Course: Admission HPI: Patient is a 34-year-old female who was recently residing at [facility] and has a history of bipolar disorder type I PTSD and polysubstance abuse. Patient presented to the hospital yesterday with the complaints of suicidal ideations with a plan to overdose on cocaine. Patient stated to the ER doc that she has been off medications for 3 weeks now and was referred by [facility] to be evaluated. Patient apparently has had little follow-up. Patient was admitted to the mental health floor and initially signed adult voluntary form however soon after signed AMA on 06/13/2019 in the morning. Patient has been refusing to take medications except for her pain medications which were prescribed by her hospitalist. Patient has a history of bipolar type I disorder PTSD and polysubstance abuse. She has a history of being followed up at [facility]. Patient was last admitted to a psychiatric unit in March 2019 at [place]. Patient was attempted to be evaluated by tech writer however patient did not want to leave her room and was irritable/uncooperative. She was noted to be in her bed and covering herself with her blankets and appeared to have poor hygiene and grooming. Patient demanded the tech writer leaves a room and states that she did not want to talk. She claims that "my back hurts" and also stated "I don't have to talk to you I ready sign myself out". Patient did not answer any other questions related to her mood, anxiety or sleep or appetite. Patient denies any suicidal or homicidal ideations intent or plan. At this time patient denies any auditory or visual hallucinations. Patient's UDS was positive for methadone and cocaine. Patient also has a history of using cigarettes. Hospital course: Upon admission to the unit patient was initially uncooperative and hostile and refused to engage in milieu and speak with staff members. Patient did however sign for voluntary admission however shortly after signed an AMA form. Certifications and petitions were filed for court soon after and patient then signed to deferral for treatment on 06/21/2019. Patient gradually became more directable and agreeable to continue with treatment and take her medications. Patient got along well with other patients on the unit and followed unit protocol. Patient was compliant with the medications and denied any side effects throughout hospital course. Patient was started on Zyprexa and titrated up to a dose of 50 mg nightly for mood stabilization/psychosis. Patient was also restarted on BuSpar 30 mg twice a day for anxiety and also Cymbalta titrated up to a dose of 60 mg at bedtime for mood/pain. Patient was also started on prazosin 2 mg nightly for nightmares. Patient spoke of her stressors and engaged in therapy both group and individual. Patient was also seen by medical team for history and physical exam. Patient had significant complaints of pain throughout her body and was placed on Flexeril when necessary along with tramadol and diclofenac gel which patient used intermittently throughout hospitalization. Throughout the course of the hospitalization patient gradually improved with regards to mood, pain, anxiety, sleep and became future oriented with improved insight and judgment. On the day of discharge patient denied any suicidal or homicidal ideations intent or plan denied any auditory or visual hallucinations. Patient endorsed wanting to live for her health and her sobriety. The patient denied any access to guns or weapons. Patient denied any paranoia and did not endorse any delusions. Patient does have a significant history of substance abuse and was counseled on abstaining from all substances including alcohol and marijuana.] Patient was offered inpatient substance abuse rehab however patient declined at this time and preferred to do outpatient/community mental health substance use treatment and mentioned that s he is in the process of being enrolled in a long-term treatment program through [facility]. Patient was also counseled on the medications and need for regular compliance and was encouraged to follow-up with their outpatient appointment for mental health and also for primary care. Patient preferred not to have a family meeting prior to discharge. Mental status exam: General Appearance: Patient appears to be stated age is tall, alert, pleasant, and cooperative. Patient is in no acute distress and has improved hygiene and grooming Behavior: Patient is calmly seated without any agitated behavior. Speech: Patient's speech is fluent and nonpressured. Mood/Affect: Patient reports their mood is "better", affect is congruent and euthymic. Suicidality/Homicidality: Patient denies having any suicidal or homicidal ideation intent or plan. Perceptions: Patient denies any auditory or visual hallucinations. Though content/process: There is no evidence of any delusional thought content and thought process is linear and goal-directed. More future oriented. Memory and concentration: AOX3, grossly intact for the purposes of this session. Can spell "WORLD" backwards correctly. Judgment and insight: improved with guarded prognosis Impression: Bipolar disorder depressed, with psychotic features History of PTSD Cocaine abuse Opiate abuse Nicotine dependence Plan: -Continue with discharge today as patient has improved and stabilized psychiatrically and is not currently an imminent threat to herself and/or others. -Continue medications: Zyprexa 50 mg daily at bedtime for mood s tabilization/psychosis, BuSpar 30 mg twice a day for anxiety, Cymbalta 60 mg daily at bedtime for mood/pain, prazosin 2 mg nightly for nightmares. -Patient was counseled on the need for medication compliance and appropriate follow-up at mental health and also primary care for medical issues. Patient verbalized understanding and agreed. Patient will be following up with pain management as an outpatient and patient did not want either Flexeril, diclofenac gel or tramadol when necessary prescription on discharge. -Social work contacted the patient's friend whom she is going to stay with upon discharge to address any concerns and answer questions. Patient did not want a formal family meeting. Social work also to arrange for patients follow up appointments with [facility] for psychiatric care along with follow up with primary care provider. -Patient counseled on abstaining from recreational drugs and marijuana and alcohol. Was informed/educated on the adverse effects on their physical and ment al health. Patient verbally agreed and understood. Patient was offered substance abuse treatment however declined at this time. Patient was offered inpatient substance abuse rehab however patient declined at this time and preferred to do outpatient/community mental health substance use treatment and mentioned that she is in the process of being enrolled in a long-term treatment program [facility]. -Patient was instructed to return to the hospital or seek immediate medical care if their psychiatric or medical symptoms do worsen or reoccur. Allergies Allergy/AdvReac Type Severity Reaction Status Date / Time aspirin AdvReac Bleeding Verified 06/13/19 10:03 ibuprofen [From Motrin] AdvReac Bleeding Verified 06/13/19 10:03 Laboratory Results Urine Color Yellow 06/13/19 09:40 Urine Appearance Clear (Clear) 06/13/19 09:40 Urine pH 6.0 (5.0-8.0) 06/13/19 09:40 Ur Specific [place] 1.025 (1.001-1.035) 06/13/19 09:40 Urine Protein 1+ (Negative) H 06/13/19 09:40 Ur Protein Confirm [employer] 06/13/19 09:40 Urine Glucose (UA) Negative (Negative) 06/13/19 09:40 Urine Ketones Negative (Negative) 06/13/19 09:40 Urine Blood Large (Negative) 06/13/19 09:40 Urine Nitrite Negative (Negative) 06/13/19 09:40 Urine Bilirubin Negative (Negative) 06/13/19 09:40 Urine Urobilinogen 0.2 mg/dL (<2.0) 06/13/19 09:40 Ur Leukocyte Esterase Negative (Negative) 06/13/19 09:40 Urine RBC 4 /hpf (0-5) 06/13/19 09:40 Urine WBC 4 /hpf (0-5) 06/13/19 09:40 Ur Squamous Epith Cells 5 /hpf (0-4) H 06/13/19 09:40 Urine Bacteria Occasional /hpf (None) H 06/13/19 09:40 Hyaline Casts 4 /lpf (0-2) H 06/13/19 09:40 Urine Mucus Moderate /hpf (None) H 06/13/19 09:40 Urine HCG, Qual Not Detected (Not Detectd) 06/13/19 09:40 Urine Opiates Screen Not Detected (NotDetected) 06/13/19 09:40 Ur Oxycodone Screen Not Detected (NotDetected) 06/13/19 09:40 Urine Methadone Screen Detected (NotDetected) H 02/17/20 09:40 Ur Propoxyphene Screen Not Detected (NotDetected) 06/13/19 09:40 Ur Barbiturates Screen Not Detected (NotDetected) 06/13/19 09:40 U Tricyclic Antidepress Not Detected (NotDetected) 06/13/19 09:40 Ur Phencyclidine Scrn Not Detected (NotDetected) 06/13/19 09:40 Ur Amphetamines Screen Not Detected (NotDetected) 06/13/19 09:40 U Methamphetamines Scrn Not Detected (NotDetected) 06/13/19 09:40 U Benzodiazepines Scrn Not Detected (NotDetected) 06/13/19 09:40 Urine Cocaine Screen Detected (NotDetected) H 06/13/19 09:40 U Marijuana (THC) Screen Not Detected (NotDetected) 06/13/19 09:40 Vital Signs Temp 97.5 F L 06/22/19 06:29 Pulse 53 L 06/22/19 06:29 Resp 14 06/22/19 06:29 BP 92/51 06/22/19 06:29 Pulse Ox 98 06/20/19 08:40 Patient Condition at Discharge: Stable Plan - Discharge Summary Discharge Rx Participant: No New Discharge Prescriptions: New DULoxetine HCL [Cymbalta] 60 mg PO HS 28 Days capsule. Cyclobenzaprine [Flexeril] 10 mg PO TID PRN tab PRN Reason: Muscle Spasm Nicotine 14Mg/24Hr Patch [Habitrol] 1 patch TRANSDERM DAILY 14 Days patch Prazosin [Minipress] 2 mg PO HS 28 Days cap Ibuprofen [Motrin] 800 mg PO TID-W/MEALS PRN 30 Days tab PRN Reason: Pain Diclofenac Sodium Gel [Voltaren Gel] 4 gm TOPICAL QID tube OLANZapine [ZyPREXA Zydis] 15 mg PO HS 28 Days tab.rapdis Continue busPIRone HCL [Buspar] 30 mg PO BID 28 Days tab Discontinued buPROPion HCL [Wellbutrin XL] 150 mg PO HS Topiramate [Topamax] 300 mg PO HS DULoxetine HCL [Cymbalta] 30 mg PO HS hydrOXYzine PAMOATE [Vistaril] 50 mg PO TID PRN PRN Reason: Anxiety Trilafon 8 Mg 24 mg PO HS Discharge Medication List Cyclobenzaprine [Flexeril] 10 mg PO TID PRN tab 06/22/19 [Rx] DULoxetine HCL [Cymbalta] 60 mg PO HS 28 Days capsule. 06/22/19 [Rx] Diclofenac Sodium Gel [Voltaren Gel] 4 gm TOPICAL QID tube 06/22/19 [Rx] Ibuprofen [Motrin] 800 mg PO TID-W/MEALS PRN 30 Days tab 06/22/19 [Rx] Nicotine 14Mg/24Hr Patch [Habitrol] 1 patch TRANSDERM DAILY 14 Days patch 06/22/19 [Rx] OLANZapine [ZyPREXA Zydis] 15 mg PO HS 28 Days tab.rapdis 06/22/19 [Rx] Prazosin [Minipress] 2 mg PO HS 28 Days cap 06/22/19 [Rx] busPIRone HCL [Buspar] 30 mg PO BID 28 Days tab 06/22/19 [Rx] Follow up Appointment(s)/Referral(s): [facility] [Outside] - 06/24/19 9:00 am (06-24-19 @ 9:00 with ELOY Linton 06-30-19 @ 9:30 with Gem Vu) None,Stated [Primary Care Provider] - 1-2 days Activity/Diet/Wound Care/Special Instructions: Activity and diet as tolerated. Avoid the use of street drugs and alcohol. Take all medications as prescribed. When you are in need of refills on your medications please contact your medical provider and/or outpatient psychiatrist to have this done. Please go to scheduled outpatient appointment for aftercare treatment. If symptoms return or become worse, call the crisis line at and/or go to the nearest emergency room for evaluation. Discharge Disposition: HOME SELF-CARE
== END 2019-06-22 10:41 | disposition home or self-care (01) | DRG 885 ==
LOC: EC 09:13 → 3MHU 13:28
PROVIDERS: ADMIT Psychiatry & Neurology Psychiatry; ATTEND Psychiatry & Neurology Psychiatry
DX: F31.5 Bipolar disorder, current episode depressed, severe, with psychotic features (principal); R45.851 Suicidal ideations; F11.10 Opioid abuse, uncomplicated; F14.10 Cocaine abuse, uncomplicated; F43.10 Post-traumatic stress disorder, unspecified; K64.9 Unspecified hemorrhoids; M51.36 Other intervertebral disc degeneration, lumbar region; G89.29 Other chronic pain; M19.90 Unspecified osteoarthritis, unspecified site; E66.01 Morbid (severe) obesity due to excess calories; Z68.34 Body mass index [BMI] 34.0-34.9, adult; F17.210 Nicotine dependence, cigarettes, uncomplicated; Z71.6 Tobacco abuse counseling; Z79.899 Other long term (current) drug therapy; Z62.810 Personal history of physical and sexual abuse in childhood; Z71.3 Dietary counseling and surveillance; Z87.42 Personal history of other diseases of the female genital tract; Z98.51 Tubal ligation status; Z90.49 Acquired absence of other specified parts of digestive tract; Z98.890 Other specified postprocedural states; Z88.6 Allergy status to analgesic agent; Z81.8 Family history of other mental and behavioral disorders; Z82.49 Family history of ischemic heart disease and other diseases of the circulatory system
CPT/HCPCS: 80306; 81001; 81025; 82075; 99285

== ENCOUNTER 2019-09-24 14:40 | Emergency (ER) | payer OTHER ==
[2019-09-24 14:44] VITALS: RESP 18
[2019-09-24] MEDS ORDERED: ONDANSETRON 4 MG/2 ML VIAL IVP STA (15:05)
[2019-09-24] MEDS ORDERED: SODIUM CHLORIDE 0.9% 1,000 ML IV STA (15:05)
--- NOTE | 2019-09-24 15:20 | ED ---
General Adult HPI - General Source: patient Mode of arrival: ambulatory Limitations: no limitations <Korin Edwards - Last Filed: 09/25/19 00:29> <Liya Arita - Last Filed: 09/28/19 13:17> - General Chief complaint: Chest Pain Stated complaint: Chest pain Time Seen by Provider: 09/24/19 14:46 - History of Present Illness Initial comments: Patient is a 34-year-old female presenting to the emergency Department with complaints of generalized fatigue, nausea, vomiting, intermittent chest pain 4- 5 days. Patient states she was recently in [place] and started developing the same symptoms, she went to local ER for workup and they found no acute abnormalities. Patient states she stayed in [place] for another 2 days and then came home because she started having more nausea. Patient states her chest pain has been intermittent 10 and describes it as pressure in the center of her chest sometimes in the left side sometimes radiating to the right side. Patient is concerned because she has a family history of heart disease. Patient denies any heart disease or heart problems in her past. She states she is also had a dry cough. She denies any recent fever, chills, diarrhea. She denies any urinary complaints. She denies being at this time secondary to tubal ligation. She has no other complaints at this time. Upon arrival to the ER, her vital signs are stable. (Korin Edwards) - Related Data Previous Rx's Medication Instructions Recorded DULoxetine HCL [Cymbalta] 60 mg PO HS 28 Days capsule. 06/22/19 Diclofenac Sodium Gel [Voltaren 4 gm TOPICAL QID tube 06/22/19 Gel] Ibuprofen [Motrin] 800 mg PO TID-W/MEALS PRN 30 Days 06/22/19 tab OLANZapine [ZyPREXA Zydis] 15 mg PO HS 28 Days tab.rapdis 06/22/19 Prazosin [Minipress] 2 mg PO HS 28 Days cap 06/22/19 busPIRone HCL [Buspar] 30 mg PO BID 28 Days tab 06/22/19 Ondansetron Odt [Zofran Odt] 4 mg PO Q8HR PRN #10 tab 09/24/19 Allergies Allergy/AdvReac Type Severity Reaction Status Date / Time aspirin AdvReac Bleeding Verified 09/24/19 14:44 ibuprofen [From Motrin] AdvReac Bleeding Verified 09/24/19 14:44 Review of Systems ROS Other: All systems not noted in ROS Statement are negative. <Korin Edwards Epi - Last Filed: 09/25/19 00:29> ROS Other: All systems not noted in ROS Statement are negative. <Liya Arita Beatriz - Last Filed: 09/28/19 13:17> ROS Statement: Those systems with pertinent positive or pertinent negative responses have been documented in the HPI. Past Medical History Past Medical History: Chest Pain / Angina Additional Past Medical History / Comment(s): Back pain, Positive tilt table test per patient, syncope History of Any Multi-Drug Resistant Organisms: None Reported Past Surgical History: Appendectomy, Tonsillectomy, Tubal Ligation Additional Past Surgical History / Comment(s): ovarian cyst removal, pins in ankle, colon surgery- fissure Past Anesthesia/Blood Transfusion Reactions: No Reported Reaction Past Psychological History: Anxiety, Bipolar, Depression, PTSD Smoking Status: Current every day smoker Past Alcohol Use History: None Reported Past Drug Use History: Unable to Obtain - Past Family History Father Family Medical History: No Reported History Additional Family Medical History / Comment(s): Father is alive for patient has had no contact with him. Mother Family Medical History: No Reported History Additional Family Medical History / Comment(s): Mother is alive at age 50 with history of pacemaker placement, bipolar and depression. Patient has 2 sisters one is healthy and one has mental illness. Patient has 2 boys that have ADHD. <Korin Edwards - Last Filed: 09/25/19 00:29> General Exam Limitations: no limitations <Korin Edwards - Last Filed: 09/25/19 00:29> - General Exam Comments Initial Comments: GENERAL: Well-appearing, well-nourished and in no acute distress. HEAD: Atraumatic, normocephalic. EYES: Pupils equal round and reactive to light, extraocular movements intact, sclera anicteric, conjunctiva are normal. ENT: TMs normal, nares patent, oropharynx clear without exudates. Moist mucous membranes. NECK: Normal range of motion, supple without lymphadenopathy or JVD. LUNGS: Breath sounds clear to auscultation bilaterally and equal. No wheezes rales or rhonchi. HEART: Regular rate and rhythm without murmurs, rubs or gallops. ABDOMEN: Soft, nontender, normoactive bowel sounds. No guarding, no rebound. No masses appreciated. : Deferred EXTREMITIES: Normal range of motion, no pitting or edema. No clubbing or cyanosis. NEUROLOGICAL: Cranial nerves II through XII grossly intact. Normal speech, normal gait. PSYCH: Normal mood, normal affect. SKIN: Warm, Dry, normal turgor, no rashes or lesions noted. (Korin Edwards) Course Vital Signs 09/24/19 09/24/19 09/24/19 14:41 17:31 17:35 Temperature 98.7 F 98.6 F Pulse Rate 54 L 86 Respiratory 18 18 Rate Blood Pressure 135/87 110/79 O2 Sat by Pulse 98 97 Oximetry EKG Findings - EKG Comments: EKG Findings:: EKG raised sinus bradycardia, otherwise normal ECG. No signs of acute ischemia. Ventricular rate 50, P on over 170, QTC 419. Similar to previous EKG on 10/05/2018. <Korin Edwards - Last Filed: 09/25/19 00:29> Medical Decision Making - Lab Data Result diagrams: 09/24/19 15:15 09/24/19 15:15 <Korin Edwards - Last Filed: 09/25/19 00:29> - Lab Data Result diagrams: 09/24/19 15:15 09/24/19 15:15 <Liya Arita - Last Filed: 09/28/19 13:17> - Medical Decision Making Patient is a 34-year-old female presenting with generalized fatigue, nausea, vo miting, chest pressure 4 days. Vitals are stable. EKG shows no acute changes. Lab work shows no acute findings. Negative d-dimer, troponin is normal. Urine shows no signs of infection. Chest x-ray shows slight increased lung markings, no other acute findings. She was given fluids, Zofran. She's been resting currently in the ER. I discussed with patient that she may have a very mild bronchitis versus upper respiratory infection that is causing her chest discomfort. She may also have gastroenteritis this gives her nausea and vomiting. Patient is stable for discharge at this time and she is in agreement with this plan of care. She'll be discharged with Zofran as needed for addition al nausea. Return parameters were discussed with the patient she verbalized understanding. She'll follow up with PCP. Case discussed with Dr. Arita. (Korin Edwards) I was available for consultation in the emergency department. The history and physical exam were done by the midlevel provider. I was consulted for this patients care. I reviewed the case with the midlevel provider and based on their presentation of the patient, I agree with the assessment, medical decision making and plan of care as documented. Chart was dictated using [employer] dictation software. Attempts were made to correct any dictation errors however some typographical errors may persist. Patient was seen during the [facility] emergency due to Covid-19 pandemic. (Liya Arita) - Lab Data Lab Results 09/24/19 09/24/19 09/24/19 Range/Units 15:10 15:15 15:15 WBC 10.1 (3.8-10.6) k/uL RBC 4.36 (3.80-5.40) m/uL Hgb 13.7 (11.4-16.0) gm/dL Hct 39.7 (34.0-46.0) % MCV 91.1 (80.0-100.0) fL MCH 31.5 (25.0-35.0) pg MCHC 34.6 (31.0-37.0) g/dL RDW 12.8 (11.5-15.5) % Plt Count 262 (150-450) k/uL Neutrophils % 67 % Lymphocytes % 24 % Monocytes % 5 % Eosinophils % 3 % Basophils % 1 % Neutrophils # 6.7 (1.3-7.7) k/uL Lymphocytes # 2.4 (1.0-4.8) k/uL Monocytes # 0.5 (0-1.0) k/uL Eosinophils # 0.3 (0-0.7) k/uL Basophils # 0.1 (0-0.2) k/uL D-Dimer 0.32 (<0.60) mg/L FEU Sodium (137-145) mmol/L Potassium (3.5-5.1) mmol/L Chloride (98-107) mmol/L Carbon Dioxide (22-30) mmol/L Anion Gap mmol/L BUN (7-17) mg/dL Creatinine (0.52-1.04) mg/dL Est GFR (CKD-EPI)AfAm (>60 ml/min/1.73 sqM) Est GFR (CKD-EPI)NonAf (>60 ml/min/1.73 sqM) Glucose (74-99) mg/dL Calcium (8.4-10.2) mg/dL Total Bilirubin (0.2-1.3) mg/dL AST (14-36) U/L ALT (4-34) U/L Alkaline Phosphatase (38-126) U/L Troponin I (0.000-0.034) ng/mL Total Protein (6.3-8.2) g/dL Albumin (3.5-5.0) g/dL Urine Color Light Yellow Urine Appearance Clear (Clear) Urine pH 7.0 (5.0-8.0) Ur Specific [place] 1.014 (1.001-1.035) Urine Protein Negative (Negative) Urine Glucose (UA) Negative (Negative) Urine Ketones Negative (Negative) Urine Blood Negative (Negative) Urine Nitrite Negative (Negative) Urine Bilirubin Negative (Negative) Urine Urobilinogen <2.0 (<2.0) mg/dL Ur Leukocyte Esterase Large H (Negative) Urine RBC 1 (0-5) /hpf Urine WBC 2 (0-5) /hpf Ur Squamous Epith Cells 5 H (0-4) /hpf Urine Opiates Screen Not Detected (NotDetected) Ur Oxycodone Screen Not Detected (NotDetected) Urine Methadone Screen Not Detected (NotDetected) Ur Propoxyphene Screen Not Detected (NotDetected) Ur Barbiturates Screen Not Detected (NotDetected) U Tricyclic Antidepress Not Detected (NotDetected) Ur Phencyclidine Scrn Not Detected (NotDetected) Ur Amphetamines Screen Not Detected (NotDetected) U Methamphetamines Scrn Not Detected (NotDetected) U Benzodiazepines Scrn Not Detected (NotDetected) Urine Cocaine Screen Not Detected (NotDetected) U Marijuana (THC) Screen Not Detected (NotDetected) 09/24/19 09/24/19 Range/Units 15:15 15:15 WBC (3.8-10.6) k/uL RBC (3.80-5.40) m/uL Hgb (11.4-16.0) gm/dL Hct (34.0-46.0) % MCV (80.0-100.0) fL MCH (25.0-35.0) pg MCHC (31.0-37.0) g/dL RDW (11.5-15.5) % Plt Count (150-450) k/uL Neutrophils % % Lymphocytes % % Monocytes % % Eosinophils % % Basophils % % Neutrophils # (1.3-7.7) k/uL Lymphocytes # (1.0-4.8) k/uL Monocytes # (0-1.0) k/uL Eosinophils # (0-0.7) k/uL Basophils # (0-0.2) k/uL D-Dimer (<0.60) mg/L FEU Sodium 138 (137-145) mmol/L Potassium 4.1 (3.5-5.1) mmol/L Chloride 107 (98-107) mmol/L Carbon Dioxide 25 (22-30) mmol/L Anion Gap 6 mmol/L BUN 8 (7-17) mg/dL Creatinine 0.73 (0.52-1.04) mg/dL Est GFR (CKD-EPI)AfAm >90 (>60 ml/min/1.73 sqM) Est GFR (CKD-EPI)NonAf >90 (>60 ml/min/1.73 sqM) Glucose 103 H (74-99) mg/dL Calcium 9.2 (8.4-10.2) mg/dL Total Bilirubin 0.2 (0.2-1.3) mg/dL AST 21 (14-36) U/L ALT 14 (4-34) U/L Alkaline Phosphatase 54 (38-126) U/L Troponin I <0.012 (0.000-0.034) ng/mL Total Protein 6.9 (6.3-8.2) g/dL Albumin 4.0 (3.5-5.0) g/dL Urine Color Urine Appearance (Clear) Urine pH (5.0-8.0) Ur Specific [place] (1.001-1.035) Urine Protein (Negative) Urine Glucose (UA) (Negative) Urine Ketones (Negative) Urine Blood (Negative) Urine Nitrite (Negative) Urine Bilirubin (Negative) Urine Urobilinogen (<2.0) mg/dL Ur Leukocyte Esterase (Negative) Urine RBC (0-5) /hpf Urine WBC (0-5) /hpf Ur Squamous Epith Cells (0-4) /hpf Urine Opiates Screen (NotDetected) Ur Oxycodone Screen (NotDetected) Urine Methadone Screen (NotDetected) Ur Propoxyphene Screen (NotDetected) Ur Barbiturates Screen (NotDetected) U Tricyclic Antidepress (NotDetected) Ur Phencyclidine Scrn (NotDetected) Ur Amphetamines Screen (NotDetected) U Methamphetamines Scrn (NotDetected) U Benzodiazepines Scrn (NotDetected) Urine Cocaine Screen (NotDetected) U Marijuana (THC) Screen (NotDetected) Disposition Is patient prescribed a controlled substance at d/c from ED?: No <Korin Edwards - Last Filed: 09/25/19 00:29> <Liya Arita - Last Filed: 09/28/19 13:17> Clinical Impression: Atypical chest pain, Upper respiratory infection, viral, Nausea & vomiting Disposition: HOME SELF-CARE Condition: Stable Instructions (If sedation given, give patient instructions): Upper Respiratory Infection (ED), Gastroenteritis (ED) Additional Instructions: Please return to the Emergency Department if symptoms worsen or any other co ncerns. Follow-up with PCP. Prescriptions: Ondansetron Odt [Zofran Odt] 4 mg PO Q8HR PRN #10 tab PRN Reason: Nausea Referrals: None,Stated [Primary Care Provider] - 1-2 days Vianey Alberts MD [STAFF PHYSICIAN] - 1-2 days
[2019-09-24 15:28] LABS: Appearance,Urine Clear (Clear); Bilirubin,Urine Negative (Negative); Blood,Urine Negative (Negative); Color,Urine Light Yellow; Glucose,Urine (UA) Negative (Negative); Ketones,Urine Negative (Negative); Leukocyte Esterase,Urine Large (Negative); Nitrite,Urine Negative (Negative); Protein,Urine Negative (Negative); RBC,Urine 1 /hpf (0-5); Specific Gravity,Urine 1.014 (1.001-1.035); Squamous Epithelial Cell,Urine 5 /hpf (0-4); Urobilinogen,Urine <2.0 mg/dL (<2.0); WBC,Urine 2 /hpf (0-5)
[2019-09-24 15:35] LABS: ALT 14 U/L (4-34); AST 21 U/L (14-36); African American GFR (CKD) >90 (>60 ml/min/1.73 sqM); Alkaline Phosphatase 54 U/L (38-126); Anion Gap 6 mmol/L; Blood Urea Nitrogen 8 mg/dL (7-17); Calcium 9.2 mg/dL (8.4-10.2); Carbon Dioxide 25 mmol/L (22-30); Chloride 107 mmol/L (98-107); Glucose 103 mg/dL (74-99); Non-African American GFR(CKD) >90 (>60 ml/min/1.73 sqM); Potassium 4.1 mmol/L (3.5-5.1); Sodium 138 mmol/L (137-145); Total Bilirubin 0.2 mg/dL (0.2-1.3); Total Protein 6.9 g/dL (6.3-8.2)
[2019-09-24 15:38] LABS: Amphetamine Screen,Urine Not Detected (NotDetected); Barbiturate Screen,Urine Not Detected (NotDetected); Benzodiazepines Screen,Urine Not Detected (NotDetected); Cocaine Screen,Urine Not Detected (NotDetected); Methadone Screen, Urine Not Detected (NotDetected); Opiate Screen,Urine Not Detected (NotDetected); Oxycodone Screen, Urine Not Detected (NotDetected); Phencyclidine Screen,Urine Not Detected (NotDetected); Tricyclic Antidepressant,Urine Not Detected (NotDetected); Urn Cannabinoid Scrn Not Detected (NotDetected)
[2019-09-24 15:40] LABS: Basophils # (A) 0.1 k/uL (0-0.2); Basophils % (A) 1 %; Eosinophils # (A) 0.3 k/uL (0-0.7); Eosinophils % (A) 3 %; HCT 39.7 % (34.0-46.0); HGB 13.7 gm/dL (11.4-16.0); Lymphocytes # (A) 2.4 k/uL (1.0-4.8); Lymphocytes % (A) 24 %; MCH 31.5 pg (25.0-35.0); MCHC 34.6 g/dL (31.0-37.0); MCV 91.1 fL (80.0-100.0); Mean Platelet Volume 7.4; Monocytes # (A) 0.5 k/uL (0-1.0); Monocytes % (A) 5 %; Neutrophils # (A) 6.7 k/uL (1.3-7.7); Neutrophils % (A) 67 %; Platelet Count 262 k/uL (150-450); RBC 4.36 m/uL (3.80-5.40); RDW 12.8 % (11.5-15.5); WBC 10.1 k/uL (3.8-10.6)
--- NOTE | 2019-09-24 16:17 | XR ---
EXAMINATION TYPE: XR chest 2V DATE OF EXAM: 09/24/2019 COMPARISON: NONE HISTORY: Chest pressure TECHNIQUE: 2 views FINDINGS: Heart and mediastinum are normal. Lungs are clear of consolidation. There are no hilar mass es. Bony thorax is intact. There are chest leads. There is slight coarsening of interstitial markings in the lower lung mazariegos. IMPRESSION: Slight increased lung markings. Normal heart. No heart failure.
[2019-09-24 17:32] VITALS: BP 110/79; PULSE 86
[2019-09-24 17:36] VITALS: TEMP 98.6
== END 2019-09-24 17:35 | disposition home or self-care (01) ==
LOC: EC 14:40
DX: J06.9 Acute upper respiratory infection, unspecified (principal); R07.89 Other chest pain; R11.2 Nausea with vomiting, unspecified; R91.8 Other nonspecific abnormal finding of lung field; I25.2 Old myocardial infarction; F17.200 Nicotine dependence, unspecified, uncomplicated; Z88.6 Allergy status to analgesic agent; Z82.49 Family history of ischemic heart disease and other diseases of the circulatory system
CPT/HCPCS: 99285; 96374 ×2; 96361 ×2; 99284; 36415; 93005; 85379; 80053; 84484; 85025; 81001; 80306; 71046; J2405

== ENCOUNTER 2019-10-04 19:18 | Inpatient (IN) | payer MEDICAID, OTHER ==
[2019-10-04] MEDS ORDERED: LORazepam 1 MG TAB PO STA (20:02)
[2019-10-04 20:39] LABS: Appearance,Urine Clear (Clear); Bilirubin,Urine Negative (Negative); Blood,Urine Moderate (Negative); Color,Urine Yellow; Glucose,Urine (UA) Negative (Negative); Hyaline Casts,Urine 1 /lpf (0-2); Ketones,Urine Negative (Negative); Leukocyte Esterase,Urine Moderate (Negative); Mucus,Urine Rare /hpf; Nitrite,Urine Negative (Negative); PH, Urine 5.5 (5.0-8.0); Protein,Urine Negative (Negative); RBC,Urine <1 /hpf (0-5); Specific Gravity,Urine 1.022 (1.001-1.035); Squamous Epithelial Cell,Urine 3 /hpf (0-4); WBC,Urine 1 /hpf (0-5)
[2019-10-04 20:56] LABS: Amphetamine Screen,Urine Not Detected (NotDetected); Barbiturate Screen,Urine Not Detected (NotDetected); Benzodiazepines Screen,Urine Not Detected (NotDetected); Cocaine Screen,Urine Detected (NotDetected); Methadone Screen, Urine Not Detected (NotDetected); Opiate Screen,Urine Not Detected (NotDetected); Oxycodone Screen, Urine Not Detected (NotDetected); Phencyclidine Screen,Urine Not Detected (NotDetected); Tricyclic Antidepressant,Urine Not Detected (NotDetected); Urn Cannabinoid Scrn Not Detected (NotDetected)
--- NOTE | 2019-10-05 00:05 | ED ---
General Adult HPI - General Chief complaint: Psychiatric Symptoms Stated complaint: Mental health Time Seen by Provider: 10/04/19 19:29 Source: patient, RN notes reviewed, old records reviewed Mode of arrival: ambulatory Limitations: no limitations - History of Present Illness Initial comments: 34-year-old female patient presents to ED for chief complaint of suicidal thoughts. Patient reports that she has been having suicidal thoughts for a few weeks. Reports that she has a problem with drugs states that she relapsed a few days ago. She tried heroin again thinking that maybe she would overdose. she states that she had a normal experience and denies passing out or any prolonged immobilization. She otherwise denies any other actions to hurt herself or hurt any other people. Denies taking anything today. Denies any physical complaints at this time. - Related Data Home Medications Medication Instructions Recorded Confirmed Naproxen Sodium [Aleve] 440 mg PO Q6H PRN 10/04/19 10/04/19 Perphenazine 8mg 24 mg PO HS 10/04/19 10/04/19 Prazosin HCl [Minipress] 2 mg PO HS 10/04/19 10/04/19 Topiramate [Topamax] 300 mg PO HS 10/04/19 10/04/19 hydrOXYzine PAMOATE [Vistaril] 50 mg PO TID 10/04/19 10/04/19 Previous Rx's Medication Instructions Recorded DULoxetine HCL [Cymbalta] 60 mg PO HS 28 Days capsule. 06/22/19 busPIRone HCL [Buspar] 30 mg PO BID 28 Days tab 06/22/19 Ondansetron Odt [Zofran Odt] 4 mg PO Q8HR PRN #10 tab 09/24/19 Allergies Allergy/AdvReac Type Severity Reaction Status Date / Time aspirin AdvReac Bleeding Verified 10/04/19 19:58 ibuprofen [From Motrin] AdvReac Bleeding Verified 10/04/19 19:58 Review of Systems ROS Statement: Those systems with pertinent positive or pertinent negative responses have been documented in the HPI. ROS Other: All systems not noted in ROS Statement are negative. Past Medical History Past Medical History: Chest Pain / Angina Additional Past Medical History / Comment(s): Back pain, Positive tilt table test per patient, syncope History of Any Multi-Drug Resistant Organisms: None Reported Past Surgical History: Appendectomy, Tonsillectomy, Tubal Ligation Additional Past Surgical History / Comment(s): ovarian cyst removal, pins in ankle, colon surgery- fissure Past Anesthesia/Blood Transfusion Reactions: No Reported Reaction Past Psychological History: Anxiety, Bipolar, Depression, PTSD Smoking Status: Current every day smoker Past Alcohol Use History: None Reported Past Drug Use History: Cocaine, Heroin - Past Family History Father Family Medical History: No Reported History Additional Family Medical History / Comment(s): Father is alive for patient has had no contact with him. Mother Family Medical History: No Reported History Additional Family Medical History / Comment(s): Mother is alive at age 50 with history of pacemaker placement, bipolar and depression. Patient has 2 sisters one is healthy and one has mental illness. Patient has 2 boys that have ADHD. General Exam - General Exam Comments Initial Comments: Constitutional: NAD, AOX3, Pt has pleasant affect. HEENT: NC/AT, trachea midline, neck supple, no lymphadenopathy. External ears appear normal, without discharge. Mucous membranes moist. Eyes PERRLA, EOM intact. There is no scleral icterus. No pallor noted. Cardiopulmonary: RRR, no murmurs, rubs or gallops, no JVD noted. Lungs CTAB in anterior and posterior mazariegos. No peripheral edema. Abdominal exam: Abdomen soft and non-distended. Abdomen non-tender to palpation in all 4 quadrants. Bowel sounds active in LLQ. No hepatosplenomegaly. No ecchymosis Neuro: CN II-XII grossly intact. No nuchal rigidity. No raccon eyes, no chavez sign. MSK: No posterior calf tenderness bilaterally. Full active ROM in upper and lower extrmeities. Limitations: no limitations Course Vital Signs 10/04/19 19:20 Temperature 98.5 F Pulse Rate 85 Respiratory 18 Rate Blood Pressure 118/67 O2 Sat by Pulse 100 Oximetry Medical Decision Making - Medical Decision Making 34-year-old female patient returns ED for evaluation of suicidal ideations. Patient also has stable, afebrile. Denies any physical complaints. Physical exam did not demonstrate any acute pathology. Patient was evaluated by emergency psychiatric services recommended for admission. Case discussed with Dr. Franklin. - Lab Data Lab Results 10/04/19 10/04/19 Range/Units 20:23 20:23 Urine Color Yellow Urine Appearance Clear (Clear) Urine pH 5.5 (5.0-8.0) Ur Specific [place] 1.022 (1.001-1.035) Urine Protein Negative (Negative) Urine Glucose (UA) Negative (Negative) Urine Ketones Negative (Negative) Urine Blood Moderate H (Negative) Urine Nitrite Negative (Negative) Urine Bilirubin Negative (Negative) Urine Urobilinogen 2.0 (<2.0) mg/dL Ur Leukocyte Esterase Moderate H (Negative) Urine RBC <1 (0-5) /hpf Urine WBC 1 (0-5) /hpf Ur Squamous Epith Cells 3 (0-4) /hpf Hyaline Casts 1 (0-2) /lpf Urine Mucus Rare H (None) /hpf Urine HCG, Qual Not Detected (Not Detectd) Urine Opiates Screen Not Detected (NotDetected) Ur Oxycodone Screen Not Detected (NotDetected) Urine Methadone Screen Not Detected (NotDetected) Ur Propoxyphene Screen Not Detected (NotDetected) Ur Barbiturates Screen Not Detected (NotDetected) U Tricyclic Antidepress Not Detected (NotDetected) Ur Phencyclidine Scrn Not Detected (NotDetected) Ur Amphetamines Screen Not Detected (NotDetected) U Methamphetamines Scrn Not Detected (NotDetected) U Benzodiazepines Scrn Not Detected (NotDetected) Urine Cocaine Screen Detected H (NotDetected) U Marijuana (THC) Screen Not Detected (NotDetected) Disposition Clinical Impression: Psychiatric disorder Disposition: ADMITTED IP TO THIS [facility] Condition: Serious Is patient prescribed a controlled substance at d/c from ED?: No Referrals: None,Stated [Primary Care Provider] - 1-2 days
[2019-10-05 02:41] LABS: HCT 37.3 % (34.0-46.0); HGB 12.4 gm/dL (11.4-16.0); MCHC 33.2 g/dL (31.0-37.0); MCV 90.5 fL (80.0-100.0); Mean Platelet Volume 7.5; Platelet Count 233 k/uL (150-450); RBC 4.12 m/uL (3.80-5.40); RDW 12.9 % (11.5-15.5); WBC 8.1 k/uL (3.8-10.6)
[2019-10-05 02:47] LABS: ALT 14 U/L (4-34); AST 22 U/L (14-36); African American GFR (CKD) >90 (>60 ml/min/1.73 sqM); Albumin 3.7 g/dL (3.5-5.0); Alkaline Phosphatase 47 U/L (38-126); Anion Gap 6 mmol/L; Blood Urea Nitrogen 13 mg/dL (7-17); Calcium 9.2 mg/dL (8.4-10.2); Carbon Dioxide 22 mmol/L (22-30); Chloride 108 mmol/L (98-107); Glucose 110 mg/dL (74-99); Non-African American GFR(CKD) >90 (>60 ml/min/1.73 sqM); Potassium 3.8 mmol/L (3.5-5.1); Sodium 136 mmol/L (137-145); Total Bilirubin 0.3 mg/dL (0.2-1.3); Total Protein 6.4 g/dL (6.3-8.2)
[2019-10-05] MEDS ORDERED: MAGNESIUM HYDROXIDE 2,400 MG/10 ML CUP PO PRN (04:56)
[2019-10-05] MEDS ORDERED: ACETAMINOPHEN TAB 325 MG TAB PO PRN (04:56)
[2019-10-05] MEDS ORDERED: ZIPRASIDONE 20 MG VIAL IM PRN (04:56)
[2019-10-05] MEDS ORDERED: MAG HYDROX/AL HYDROX/SIMETH 30 ML CUP PO PRN (04:56)
[2019-10-05] MEDS ORDERED: LORazepam 2 MG/ML INJ IM PRN (05:07)
[2019-10-05] MEDS: NICOTINE 14MG/24HR PATCH TRANSDERM SCH (08:48)
[2019-10-05] MEDS: LORazepam 1 MG TAB PO PRN ×2 (08:48→21:12)
[2019-10-05 10:23] LABS: Albumin 3.6 g/dL (3.5-5.0); Bilirubin,Unconjugated 0.3 mg/dL (0.0-1.1); Total Bilirubin 0.3 mg/dL (0.2-1.3); Total Protein 6.2 g/dL (6.3-8.2)
--- NOTE | 2019-10-05 11:24 | P.HP ---
Psychiatric H&P - . H&P Date: 10/05/19 History & Physical: Allergies Allergy/AdvReac Type Severity Reaction Status Date / Time aspirin AdvReac Bleeding Verified 10/05/19 05:23 ibuprofen [From Motrin] AdvReac Bleeding Verified 10/05/19 05:23 Vital Signs Temp 97.7 F 10/05/19 04:59 Pulse 70 10/05/19 08:50 Resp 14 10/05/19 04:59 BP 108/72 10/05/19 04:59 Pulse Ox 98 10/05/19 08:50 Intake & Output 10/04/19 10/05/19 10/05/19 18:59 06:59 18:59 Weight 113.398 kg Laboratory Last Values WBC 8.1 k/uL (3.8-10.6) 10/05/19 02:15 RBC 4.12 m/uL (3.80-5.40) 10/05/19 02:15 Hgb 12.4 gm/dL (11.4-16.0) 10/05/19 02:15 Hct 37.3 % (34.0-46.0) 10/05/19 02:15 MCV 90.5 fL (80.0-100.0) 10/05/19 02:15 MCH 30.0 pg (25.0-35.0) 10/05/19 02:15 MCHC 33.2 g/dL (31.0-37.0) 10/05/19 02:15 RDW 12.9 % (11.5-15.5) 10/05/19 02:15 Plt Count 233 k/uL (150-450) 10/05/19 02:15 Sodium 136 mmol/L (137-145) L 10/05/19 02:15 Potassium 3.8 mmol/L (3.5-5.1) 10/05/19 02:15 Chloride 108 mmol/L (98-107) H 10/05/19 02:15 Carbon Dioxide 22 mmol/L (22-30) 10/05/19 02:15 Anion Gap 6 mmol/L 10/05/19 02:15 BUN 13 mg/dL (7-17) 10/05/19 02:15 Creatinine 0.75 mg/dL (0.52-1.04) 10/05/19 02:15 Est GFR (CKD-EPI)AfAm >90 (>60 ml/min/1.73 sqM) 10/05/19 02:15 Est GFR (CKD-EPI)NonAf >90 (>60 ml/min/1.73 sqM) 10/05/19 02:15 Glucose 110 mg/dL (74-99) H 10/05/19 02:15 Calcium 9.2 mg/dL (8.4-10.2) 10/05/19 02:15 Total Bilirubin 0.3 mg/dL (0.2-1.3) 10/05/19 02:15 Total Bilirubin 0.3 mg/dL (0.2-1.3) 10/05/19 02:15 Conjugated Bilirubin 0.0 mg/dL (0.0-0.3) 10/05/19 02:15 Unconjugated Bilirubin 0.3 mg/dL (0.0-1.1) 10/05/19 02:15 Delta Bilirubin 0.0 mg/dL (0.0-0.2) 10/05/19 02:15 AST 22 U/L (14-36) 10/05/19 02:15 AST 23 U/L (14-36) 10/05/19 02:15 ALT 14 U/L (4-34) 10/05/19 02:15 ALT 14 U/L (4-34) 10/05/19 02:15 Alkaline Phosphatase 47 U/L (38-126) 10/05/19 02:15 Alkaline Phosphatase 47 U/L (38-126) 10/05/19 02:15 Total Protein 6.2 g/dL (6.3-8.2) L 10/05/19 02:15 Total Protein 6.4 g/dL (6.3-8.2) 10/05/19 02:15 Albumin 3.6 g/dL (3.5-5.0) 10/05/19 02:15 Albumin 3.7 g/dL (3.5-5.0) 10/05/19 02:15 Triglycerides 130 mg/dL (<150) 10/05/19 02:15 Cholesterol 159 mg/dL (<200) 10/05/19 02:15 LDL Cholesterol, Calc 102 mg/dL (0-99) H 10/05/19 02:15 HDL Cholesterol 31 mg/dL (40-60) L 10/05/19 02:15 Urine Color Yellow 10/04/19 20: Urine Appearance Clear (Clear) 10/04/19 20: Urine pH 5.5 (5.0-8.0) 10/04/19 20: Ur Specific [place] 1.022 (1.001-1.035) 10/04/19 20:23 Urine Protein Negative (Negative) 10/04/19 20: Urine Glucose (UA) Negative (Negative) 10/04/19 20: Urine Ketones Negative (Negative) 10/04/19 20: Urine Blood Moderate (Negative) H 10/04/19 20: Urine Nitrite Negative (Negative) 10/04/19: Urine Bilirubin Negative (Negative) 10/04/19: Urine Urobilinogen 2.0 mg/dL (<2.0) 10/04/19 20:23 Ur Leukocyte Esterase Moderate (Negative) H 10/04/19 20: Urine RBC <1 /hpf (0-5) 10/04/19 20: Urine WBC 1 /hpf (0-5) 10/04/19 20:23 Ur Squamous Epith Cells 3 /hpf (0-4) 10/04/19 20: Hyaline Casts 1 /lpf (0-2) 10/04/19 20: Urine Mucus Rare /hpf (None) H 10/04/19 20:23 Urine HCG, Qual Not Detected (Not Detectd) 10/04/19 20: Urine Opiates Screen Not Detected (NotDetected) 10/04/19 20: Ur Oxycodone Screen Not Detected (NotDetected) 10/04/19 20:23 Urine Methadone Screen Not Detected (NotDetected) 10/04/19 20:23 Ur Propoxyphene Screen Not Detected (NotDetected) 10/04/19 20:23 Ur Barbiturates Screen Not Detected (NotDetected) 10/04/19 20:23 U Tricyclic Antidepress Not Detected (NotDetected) 10/04/19 20:23 Ur Phencyclidine Scrn Not Detected (NotDetected) 10/04/19 20: Ur Amphetamines Screen Not Detected (NotDetected) 10/04/19 20:23 U Methamphetamines Scrn Not Detected (NotDetected) 10/04/19 20:23 U Benzodiazepines Scrn Not Detected (NotDetected) 10/04/19 20:23 Urine Cocaine Screen Detected (NotDetected) H 10/04/19 20:23 U Marijuana (THC) Screen Not Detected (NotDetected) 10/04/19 20:23 10/05/19 10:27 IDENTIFYING DATA: Patient is a 34-year-old female who has a history of bipolar disorder type I PTSD and polysubstance abuse, currently homeless and unemployed and has 2 kids were strange. HPI: Patient presented to the hospital yesterday with the complaints of suicidal ideations going on for several weeks. Patient stated in the ER that she relapsed a few days ago on heroin and cocaine/crack. Patient's UDS is positive for cocaine only. Patient was interviewed today and agreeable to speak with adjusto writer operator. Patient appeared to be depressed and states that her mood as been "low" and also endorsed anxiety. She claims that her sleep has been poor for the past several days. She states that she has been noncompliant with her medications since being discharged last from the mental health unit in May. She claims that "my mind sees things" and claimed that she "might think someone there". She states that she started using heroin again as "I heard that people after they use it so I started using it". She claims that she went to a friend's house who then admits her to come in to the hospital. She states that her appetite is poor and sleep has been poor. She claims that she has ongoing thoughts of suicide and feels overwhelmed however no active plan or intent at this time. Patient denies any homicidal ideations intent or plan. At this time patient denies any auditory or visual hallucinations. Patient's UDS was positive for cocaine. Patient also has a history of using cigarettes. PAST PSYCHIATRIC HISTORY: Patient was previously diagnosed with bipolar type I disorder PTSD and polysubstance abuse. Most recent psychiatric hospitalization was in May 2019 at [facility]. Patient follows up at [facility] over his had little contact with them. Patient is currently on Cymbalta, BuSpar 30 mg, Vistaril however claims that she has not been taking them. She states that she has a history of one overdose suicide attempt at the age of 19. PMH: Degenerative joint disease, chest pain/anxiety ALLERGIES: as per EMR CHEMICAL DEPENDENCY HISTORY: as per HPI FAMILY PSYCHIATRIC/SUBSTANCE USE HISTORY: Claims that her mother has depression and sister has borderline personality disorder. 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 She states that she has 2 kids who are estranged to her and is homeless and unemployed. MENTAL STATUS EXAM: General Appearance: Patient appears to be stated age is lethargic, irritable/tearful, attempts to cooperate. Patient appears to have poor hygiene and grooming. Behavior: Patient is sitting in chair, no agitation. Irritable/tearful and attempts to cooperate. Speech: Patient's speech is fluent and nonpressured. Mood/Affect: Patient reports their mood "low" and endorses anxiety. Affect is congruent. Suicidality/Homicidality: Patient denies having any homicidal ideation intent or plan. Admits to suicidal thoughts however no intent or plan. Perceptions: Patient denies any visual hallucinations and denies any auditory hallucinations Though content/process: Patient is logical, goal oriented. [place]. Memory and concentration: Alert and oriented 3, fair attention span. Can spell "world" backwords. Judgment and insight: poor STRENGTHS/WEAKNESSES: strength is that patient is resilient. Weakness is that patient has poor judgment and is impulsive INTELLECT: average IMPRESSIONS: Bipolar disorder type I, currently depressed History of PTSD Cocaine abuse Opiate abuse Nicotine dependence PLAN: -Patient is admitted under involuntary status to MHU for stabilization of psychiatric symptoms and safety. Patient signed medication consent form and placed in chart. Patient was previously on a deferral and demand for hearing will be filed with court. -Medications : Will start patient on paliperidone 3 mg daily at bedtime for mood stabilization/psychosis. We'll start Cymbalta 30 mg at daily for mood/pain. -Ativan and Geodon PRN for agitation/aggression -Patient was counselled on substance abuse and patient will consider going to rehab or other treatment options. -Patient was informed of the risks, benefits and side effects of the medication however patient claims that she did not want to take her medications. -Internal Medicine consult to perform medical evaluation and physical. -NRT - nicotine patch -SW on board for discharge planning. Encourage patient to participate in groups to work on coping skills. Will await demand hearing date. 10/05/19 11:27
[2019-10-05] MEDS: DULoxetine HCL 30 MG CAPSULE.DR PO SCH (11:44)
[2019-10-05 18:51] LABS: Hemoglobin A1C 5.1 % (4.0-6.0)
[2019-10-05] MEDS: PALIPERIDONE 3 MG TAB.ER.24 PO SCH (21:11)
--- NOTE | 2019-10-06 07:04 | P.PN ---
Progress Note - Text Progress Note Date: 10/06/19 Attempted to see the patient on the mental health unit. The patient was sleeping and refused to be seen or evaluated.
--- NOTE | 2019-10-06 09:11 | P.PN ---
Progress Note - Text Progress Note Date: 10/06/19 Interval History: Patient was seen lying on her bed this morning and was directable and agreeable to speak with life underwriter in the office. She appeared to have a constricted affect this morning and appeared to continuing to be depressed. She states that her mood is "the same" however did not specifically speak about depression. She claims that her anxiety has improved mildly. She states that she spoke with her family and they're agreeable to bring her close yesterday. She was fairly concrete and guarded during the interview however was appropriate. She states that she has not been going to groups however we'll try to go to groups today. She is agreeable to continue on the same medications. She claims that she was able to sleep well last night. She admits to having a fair appetite. At this time patient denies any suicidal or homical ideations, intent or plan. Patient denies any auditory, visual hallucinations and denies any paranoia or delusions. Patient denies any side effects from the medications and has been compliant with meds. Mental Status Exam: General Appearance: Patient appears to be stated age is lethargic, constricted, attempts to cooperate. Patient appears to have poor hygiene and grooming. Behavior: Patient is sitting in chair, no agitation. Constricted and attempts to cooperate. Speech: Patient's speech is fluent and nonpressured. Mood/Affect: Patient reports their mood "the same" and endorses anxiety. Affect is congruent and constricted.. Suicidality/Homicidality: Patient denies having any homicidal ideation intent or plan. Denies any thoughts of suicide intent or plan. Perceptions: Patient denies any visual hallucinations and denies any auditory hallucinations Though content/process: Patient is logical, goal oriented. [place]. Poverty of content. Memory and concentration: Alert and oriented 3, fair attention span. Judgment and insight: poor, improving mildly. Assessment Bipolar disorder type I, currently depressed History of PTSD Cocaine abuse Opiate abuse Nicotine dependence Plan: -Patient continues to meet criteria for inpatient psychiatric admission for symptom stabilization and safety. Patient has signed medication consent and was placed in patient's chart. Patient was previously on a deferral and demand for hearing has been filed with the court, awaiting court date. -Medications: Continue with paliperidone 3 mg daily at bedtime for mood stabilization/psychosis. Continue with Cymbalta 30 mg daily for mood/pain. -When necessary Ativan and Geodon for agitation/aggression. -NRT - nicotine patch -SW on board for discharge planning. Encouraged the patient to participate in milieu. Awaiting court hearing date. We'll continue to encourage patient to go to rehab this patient is continuing to consider it.
[2019-10-06] MEDS: NICOTINE 14MG/24HR PATCH TRANSDERM SCH ×2 (10:03→10:06)
[2019-10-06] MEDS: DULoxetine HCL 30 MG CAPSULE.DR PO SCH (10:03)
[2019-10-06] MEDS: LORazepam 1 MG TAB PO PRN (12:04)
[2019-10-06] MEDS ORDERED: ZIPRASIDONE 20 MG VIAL IM ONE (13:49)
[2019-10-06] MEDS ORDERED: WATER FOR INJECTION, STERILE 10 ML IV ONE (13:50)
[2019-10-06] MEDS: PRAZOSIN 1 MG CAP PO SCH (22:52)
[2019-10-06] MEDS: PALIPERIDONE 3 MG TAB.ER.24 PO SCH (22:52)
[2019-10-07] MEDS: NICOTINE 14MG/24HR PATCH TRANSDERM SCH (08:00)
[2019-10-07] MEDS: DULoxetine HCL 30 MG CAPSULE.DR PO SCH (08:01)
[2019-10-07] MEDS: LORazepam 1 MG TAB PO PRN ×2 (08:01→16:45)
[2019-10-07] MEDS ORDERED: ONDANSETRON 4 MG TAB PO PRN (09:42)
--- NOTE | 2019-10-07 09:58 | P.PN ---
Progress Note - Text Progress Note Date: 10/07/19 Interval History: Patient was seen sitting in on group this morning and was directable and agree able to speak with designer writer in the office. She appeared to have a brighter affects morning and was willing to speak to designer writer and was more appropriate. She states that her mood is "better" and claims that she feels less depressed today. She did report continuous anxiety and was okay with her Cymbalta being increased for tomorrow. She states that she is continuing to think about rehab and asked more about the court process. She states that she has been trying to go to more groups during the day. She states that she feels less lethargic than yesterday. She spoke about her 2 attempts at rehab within the past few months. She is agreeable to continue on the same medications. She claims that she was able to sleep well last night and had less nightmares. She admits to having a fair appetite. At this time patient denies any suicidal or homical ideations, intent or plan. Patient denies any auditory, visual hallucinations and denies any paranoia or delusions. Patient denies any side effects from the medications and has been compliant with meds. Mental Status Exam: General Appearance: Patient appears to be stated age is lethargic, directable, attempts to cooperate. Patient appears to have improving hygiene and grooming. Behavior: Patient is sitting in chair, no agitation. attempts to cooperate. Speech: Patient's speech is fluent and nonpressured. Mood/Affect: Patient reports their mood "better" and endorses anxiety. Affect is congruent and constricted.. Suicidality/Homicidality: Patient denies having any homicidal ideation intent or plan. Denies any thoughts of suicide intent or plan. Perceptions: Patient denies any visual hallucinations and denies any auditory hallucinations Though content/process: Patient is logical, goal oriented. [place]. Memory and concentration: Alert and oriented 3, fair attention span. Judgment and insight: poor, improving mildly. Assessment Bipolar disorder type I, currently depressed History of PTSD Cocaine abuse Opiate abuse Nicotine dependence Plan: -Patient continues to meet criteria for inpatient psychiatric admission for symptom stabilization and safety. Patient has signed medication consent and was placed in patient's chart. Patient was previously on a deferral and demand for hearing has been filed with the court. -Medications: Continue with paliperidone 3 mg daily at bedtime for mood stabilization/psychosis. Increase Cymbalta to 60 mg daily for mood/pain/anxiety. Continue with prazosin 2 mg daily at bedtime for nightmares. -When necessary Ativan and Geodon for agitation/aggression. -NRT - nicotine patch -SW on board for discharge planning. Encouraged the patient to participate in milieu. Awaiting court hearing date which is set for 10/12/2019. We'll continue to encourage patient to go to rehab this patient is continuing to consider it.
[2019-10-07] MEDS ORDERED: DULoxetine HCL 30 MG CAPSULE.DR PO ONE (11:13)
[2019-10-07] MEDS: hydrOXYzine PAMOATE 25 MG CAP PO PRN ×2 (11:23→20:00)
[2019-10-07] MEDS: PRAZOSIN 1 MG CAP PO SCH (20:00)
[2019-10-07] MEDS: PALIPERIDONE 3 MG TAB.ER.24 PO SCH (20:00)
--- NOTE | 2019-10-07 21:29 | P.PN ---
Progress Note - Text Progress Note Date: 10/07/19 Attempted to see the patient in the MHU on 10/06 @ 2100. The patient refused to talk or be examined.
[2019-10-08] MEDS: DULoxetine HCL 60 MG CAPSULE.DR PO SCH (08:29)
[2019-10-08] MEDS: NICOTINE 14MG/24HR PATCH TRANSDERM SCH (08:29)
[2019-10-08] MEDS: LORazepam 1 MG TAB PO PRN ×2 (11:34→19:15)
--- NOTE | 2019-10-08 11:35 | P.PN ---
Progress Note - Text Progress Note Date: 10/08/19 Interval History: Patient was seen laying down in her bed this morning with the covers over her head. Patient was approached by machine sign writer to speak/interview her however patient appeared to be fairly irritable this morning and claims that "no I don't want to talk to you". She denied having any overnight complaints and an Mental Status Exam: General Appearance: Patient appears to be stated age is lethargic, uncooperative. Patient appears to have improving hygiene and grooming. Behavior: Laying down in her bed. Uncooperative and dismissive. Speech: Patient's speech is fluent and nonpressured. Mood/Affect: Unable to assess Suicidality/Homicidality: Unable to assess Perceptions: Unable to assess Though content/process: Patient is logical, goal oriented. [place]. Memory and concentration: Unable to assess Judgment and insight: poor, improving mildly. Assessment: Bipolar disorder type I, currently depressed History of PTSD Cocaine abuse Opiate abuse Nicotine dependence Plan: -Patient continues to meet criteria for inpatient psychiatric admission for symptom stabilization and safety. Patient has signed medication consent and was placed in patient's chart. Patient was previously on a deferral and demand for hearing has been filed with the court. -Medications: Continue with paliperidone 3 mg daily at bedtime for mood stabilization/psychosis, we'll consider increasing if needed. Continue with Cymbalta to 60 mg daily for mood/pain/anxiety. Continue with prazosin 2 mg daily at bedtime for nightmares. -When necessary Ativan and Geodon for agitation/aggression. -NRT - nicotine patch -SW on board for discharge planning. Encouraged the patient to participate in milieu. Awaiting court hearing date which is set for 10/12/2019. We'll continue to encourage patient to go to rehab this patient is continuing to consider it.
[2019-10-08] MEDS: hydrOXYzine PAMOATE 25 MG CAP PO PRN ×2 (13:46→20:14)
[2019-10-08] MEDS: PALIPERIDONE 3 MG TAB.ER.24 PO SCH (20:13)
[2019-10-08] MEDS: PRAZOSIN 1 MG CAP PO SCH (20:13)
[2019-10-09] MEDS: NICOTINE 14MG/24HR PATCH TRANSDERM SCH (08:49)
[2019-10-09] MEDS: DULoxetine HCL 60 MG CAPSULE.DR PO SCH (08:52)
[2019-10-09] MEDS: LORazepam 1 MG TAB PO PRN ×2 (08:52→18:43)
--- NOTE | 2019-10-09 10:44 | P.PN ---
Progress Note - Text Progress Note Date: 10/09/19 Interval History: Patient was seen laying down in her bed this morning and was directable and ag reeable to speak with underwriter mortgage loan in the office. Patient is currently in a isolation room for a COVID-19 rule out. She states that she is feeling better today compared to yesterday and claims that her medications are helping her. She states that her mood is being gradually improving. She also claims that she is feeling less paranoid. She reports ongoing anxiety. Patient was asking about when she will receive her long-acting injection and when her court date is set for. She claims that she was able to sleep well last night and had less nightmares. She admits to having a fair appetite. At this time patient denies any suicidal or homical ideations, intent or plan. Patient denies any auditory, visual hallucinations and denies any paranoia or delusions. Patient denies any side effects from the medications and has been compliant with meds. Mental Status Exam: General Appearance: Patient appears to be stated age is alert, directable, attempts to cooperate. Patient appears to have improving hygiene and grooming. Behavior: Patient is sitting in chair, no agitation. attempts to cooperate. Speech: Patient's speech is fluent and nonpressured. Mood/Affect: Patient reports their mood "good" and endorses anxiety. Affect is congruent and constricted.. Suicidality/Homicidality: Patient denies having any homicidal ideation intent or plan. Denies any thoughts of suicide intent or plan. Perceptions: Patient denies any visual hallucinations and denies any auditory hallucinations Though content/process: Patient is logical, goal oriented. [place]. More future oriented. Memory and concentration: Alert and oriented 3, fair attention span. Judgment and insight: improving mildly. Assessment Bipolar disorder type I, currently depressed History of PTSD Cocaine abuse Opiate abuse Nicotine dependence Plan: -Patient continues to meet criteria for inpatient psychiatric admission for symptom stabilization and safety. Patient has signed medication consent and was placed in patient's chart. Patient was previously on a deferral and demand for hearing has been filed with the court. -Medications: Increased paliperidone 6 mg daily at bedtime for mood stabilization/psychosis. Continue with Cymbalta to 60 mg daily for mood/pain/anxiety. Continue with prazosin 2 mg daily at bedtime for nightmares. We'll transition patient on to Invega Sustenna long-acting injection within the next 1-2 days. -When necessary Ativan and Ruddydon for agitation/aggression. -NRT - nicotine patch -SW on board for discharge planning. Encouraged the patient to participate in milieu. Awaiting court hearing date which is set for 10/12/2019. We'll continue to encourage patient to go to rehab this patient is continuing to consider it.
[2019-10-09] MEDS: PRAZOSIN 1 MG CAP PO SCH (20:33)
[2019-10-09] MEDS: PALIPERIDONE 6 MG TAB.ER.24 PO SCH (20:33)
[2019-10-10] MEDS: DULoxetine HCL 60 MG CAPSULE.DR PO SCH (09:32)
[2019-10-10] MEDS: NICOTINE 14MG/24HR PATCH TRANSDERM SCH (09:33)
[2019-10-10] MEDS: LORazepam 1 MG TAB PO PRN ×2 (09:34→20:34)
[2019-10-10] MEDS ORDERED: DULoxetine HCL 30 MG CAPSULE.DR PO ONE (10:30)
[2019-10-10] MEDS: hydrOXYzine PAMOATE 25 MG CAP PO PRN ×2 (10:47→22:21)
--- NOTE | 2019-10-10 11:36 | P.PN ---
Progress Note - Text Progress Note Date: 10/10/19 Interval History: Patient was seen wandering the hallways this morning and was directable and ag reeable to speak with policy writer typist in the office. Patient claims that she is negative with regards to her COVID test today and was happy about it. Patient appears to have a brighter affect and was more appropriate and calm with policy writer typist. She asked several questions about her medications and also claims that she is still having anxiety. Patient was agreeable to have her Cymbalta increased and also will try the Vistaril today. She claims that her mood has been getting better on the current medications. She states that she was able to sleep well last night without any complaints. She also claims that she is feeling less paranoid and has been going to groups. Patient claims that she is agreeable to have the long-acting injection given to her tomorrow. She admits to having a fair appetite. At this time patient denies any suicidal or homical ideations, intent or plan. Patient denies any auditory, visual hallucinations and denies any paranoia or delusions. Patient denies any side effects from the medications and has been compliant with meds. Mental Status Exam: General Appearance: Patient appears to be stated age is alert, directable, attempts to cooperate. Patient appears to have improving hygiene and grooming. Behavior: Patient is sitting in chair, no agitation. attempts to cooperate. Speech: Patient's speech is fluent and nonpressured. Mood/Affect: Patient reports their mood "ok" and endorses anxiety. Affect is congruent and constricted.. Suicidality/Homicidality: Patient denies having any homicidal ideation intent or plan. Denies any thoughts of suicide intent or plan. Perceptions: Patient denies any visual hallucinations and denies any auditory hallucinations Though content/process: Patient is logical, goal oriented. [place]. More future oriented. Memory and concentration: Alert and oriented 3, fair attention span. Judgment and insight: improving mildly. Assessment Bipolar disorder type I, currently depressed History of PTSD Cocaine abuse Opiate abuse Nicotine dependence Plan: -Patient continues to meet criteria for inpatient psychiatric admission for symptom stabilization and safety. Patient has signed medication consent and was placed in patient's chart. Patient was previously on a deferral and demand for hearing has been filed with the court. -Medications: Continue with paliperidone 6 mg daily at bedtime for mood stabilization/psychosis. Increased Cymbalta to 90 mg daily for mood/pain/anxiety. Continue with prazosin 2 mg daily at bedtime for nightmares. Continue with Vistaril 25 mg every 6 hours when necessary for anxiety. We'll transition patient on to Invega Sustenna long-acting injection, will give 234 mg IM loading dose tomorrow. -When necessary Ativan and Geodon for agitation/aggression. -NRT - nicotine patch -SW on board for discharge planning. Encouraged the patient to participate in milieu. Awaiting court hearing date which is set for 10/12/2019. Patient is continuing to refuse rehab at this time and will likely be going to either a friend's house versus a three-quarter house. Likely discharge on Thursday after court hearing.
[2019-10-10] MEDS: PRAZOSIN 1 MG CAP PO SCH (20:33)
[2019-10-10] MEDS: PALIPERIDONE 6 MG TAB.ER.24 PO SCH (20:33)
[2019-10-11] MEDS: NICOTINE 14MG/24HR PATCH TRANSDERM SCH (08:50)
[2019-10-11] MEDS: DULoxetine HCL 30 MG CAPSULE.DR PO SCH (08:50)
[2019-10-11] MEDS: LORazepam 1 MG TAB PO PRN ×2 (08:51→19:09)
[2019-10-11] MEDS ORDERED: PALIPERIDONE IM 234 MG/1.5 ML SYG IM STA (09:56)
--- NOTE | 2019-10-11 10:05 | P.PN ---
Progress Note - Text Progress Note Date: 10/11/19 Interval History: Patient was seen taking part in group this morning and was directable and agre eable to speak with flex o writer operator in the office. Patient claims that she is feeling better today overall states that her mood is gradually improving. She continues to state that she does have some anxiety and claims at the Vistaril made her tired last night. She states that she would like to try BuSpar at this time to help with her anxiety. Patient is also agreeable to take the long-acting injection today Invega Sustenna. Medical Front Desk Specialist discussed the side effects and risks versus benefits of the medication to the patient and patient verbally understood and agreed. Patient appears to have a brighter affect and was more appropriate and calm with flex o writer operator. She states that she was able to sleep well last night without any complaints. She also claims that she is feeling less paranoid. She admits to having a fair appetite. At this time patient denies any suicidal or homical ideations, intent or plan. Patient denies any auditory, visual hallucinations and denies any paranoia or delusions. Patient denies any side effects from the medications and has been compliant with meds. Mental Status Exam: General Appearance: Patient appears to be stated age is alert, directable, attempts to cooperate. Patient appears to have improving hygiene and grooming. Behavior: Patient is sitting in chair, no agitation. attempts to cooperate. Speech: Patient's speech is fluent and nonpressured. Mood/Affect: Patient reports their mood "good" and endorses anxiety. Affect is congruent and constricted. Suicidality/Homicidality: Patient denies having any homicidal ideation intent or plan. Denies any thoughts of suicide intent or plan. Perceptions: Patient denies any visual hallucinations and denies any auditory hallucinations Though content/process: Patient is logical, goal oriented. [place]. More future oriented. Memory and concentration: Alert and oriented 3, fair attention span. Judgment and insight: improving mildly. Assessment Bipolar disorder type I, currently depressed History of PTSD Cocaine abuse Opiate abuse Nicotine dependence Plan: -Patient continues to meet criteria for inpatient psychiatric admission for symptom stabilization and safety. Patient has signed medication consent and was placed in patient's chart. Patient was previously on a deferral and demand for hearing has been filed with the court. -Medications: Decreased paliperidone 3 mg daily at bedtime for mood stabilizat ion/psychosis. Continue with Cymbalta to 90 mg daily for mood/pain/anxiety. Continue with prazosin 2 mg daily at bedtime for nightmares. Continue with Vistaril 25 mg every 6 hours when necessary for anxiety. Will receive Invega Sustenna long-acting injection 234 mg IM loading dose today. -When necessary Ativan and Geodon for agitation/aggression. -NRT - nicotine patch -SW on board for discharge planning. Encouraged the patient to participate in milieu. Awaiting court hearing date which is set for 10/12/2019. Patient is continuing to refuse rehab at this time and will likely be going to either a friend's house versus a three-quarter house. Likely discharge on Thursday after court hearing.
[2019-10-11] MEDS: busPIRone HCl 10 MG TAB PO SCH ×2 (10:23→20:09)
[2019-10-11] MEDS: PRAZOSIN 1 MG CAP PO SCH (20:08)
[2019-10-11] MEDS ORDERED: PALIPERIDONE 3 MG TAB.ER.24 PO SCH (21:00)
[2019-10-12 06:48] VITALS: BP 87/54; PULSE 58; RESP 16; TEMP 97.8
[2019-10-12] MEDS: DULoxetine HCL 30 MG CAPSULE.DR PO SCH (07:51)
[2019-10-12] MEDS: busPIRone HCl 10 MG TAB PO SCH (07:52)
[2019-10-12] MEDS: NICOTINE 14MG/24HR PATCH TRANSDERM SCH (07:53)
--- NOTE | 2019-10-12 11:57 | P.DS ---
Providers Date of admission: 10/05/19 04:41 Expected date of discharge: 10/12/19 Attending physician: Amrit Girard MD Consults: 10/05/19 04:56 Consult Physician Routine Consulting Provider: Paige Mars Consult Reason/Comments: For H & P for Medical Follow Up Do you want consulting provider notified?: Yes Primary care physician: Stated None - Discharge Diagnosis(es) (1) Bipolar 1 disorder, depressed Current Visit: Yes Status: Acute Priority: High (2) History of posttraumatic stress disorder (PTSD) Current Visit: Yes Status: Acute Priority: Medium (3) Cocaine abuse Current Visit: Yes Status: Acute Priority: Medium (4) Opiate abuse, episodic Current Visit: Yes Status: Acute Priority: Medium (5) Nicotine dependence Current Visit: Yes Status: Acute Priority: Low Hospital Course: Admission HPI: Patient is a 34-year-old female who has a history of bipolar disorder type I PTSD and polysubstance abuse, currently homeless and unemployed and has 2 kids were strange. Patient presented to the hospital yesterday with the complaints of suicidal ideations going on for several weeks. Patient stated in the ER that she relapsed a few days ago on heroin and cocaine/crack. Patient's UDS is positive for cocaine only. Patient was interviewed today and agreeable t o speak with commercial loan underwriter. Patient appeared to be depressed and states that her mood as been "low" and also endorsed anxiety. She claims that her sleep has been poor for the past several days. She states that she has been noncompliant with her medications since being discharged last from the mental health unit in May. She claims that "my mind sees things" and claimed that she "might think someone there". She states that she started using heroin again as "I heard that people after they use it so I started using it". She claims that she went to a friend's house who then admits her to come in to the hospital. She states that her appetite is poor and sleep has been poor. She claims that she has ongoing thoughts of suicide and feels overwhelmed however no active plan or intent at this time. Patient denies any homicidal ideations intent or plan. At this time patient denies any auditory or visual hallucinations. Patient's UDS was positive for cocaine. Patient also has a history of using cigarettes. Hospital course: Upon admission to the unit patient was initially depressed, anxious and paranoid. Patient was however directable and agreeable to commence treatment. Patient initially had signed a deferral in May 2019 on her previous admission and therefore a demand for hearing was filed and took court hearing place on 10/12/2019. Patient got along well with other patients on the unit and followed unit protocol. Patient was compliant with the medications and denied any side effects throughout hospital course. Patient was started on paliperidone and titrated up to a dose of 6 mg daily for psychosis/mood stabilization and then weaned off as patient was transitioned onto Invega Sustenna long-acting injection. Patient received a loading dose of Invega Sustenna 234 mg IM on 10/11/2019 and will be due for her next dose of 156 mg IM dose on 10/18/2019 due for her next maintenance dose of 170 mg IM injection on 11/08/2019 and monthly thereafter. Patient was also started on BuSpar and titrated up to a dose of 30 mg twice a day for anxiety, Cymbalta was titrated up to a dose of 90 mg daily for mood/anxiety, patient's home dose of prazosin was started at 2 mg nightly for nightmares. Patient was started on Vistaril 25 mg when necessary for anxiety. Patient spoke of her stressors and engaged in therapy both group and individual. Patient was also seen by medical team for history and physical exam. Throughout the course of the hospitalization patient gradually improved with regards to mood, anxiety, paranoia, sleep and became future oriented with improved insight and judgment. On the day of discharge patient denied any suicidal or homicidal ideations intent or plan denied any auditory or visual hallucinations. Patient endorsed wanting to live for or f main campus medical center and her health. The patient denied any access to guns or weapons. Patient denied any paranoia and did not endorse any delusions. Patient does have a significant history of substance abuse and was counseled on abstaining from all substances including alcohol and marijuana. Patient was offered however declined inpatient substance-abuse rehab. Patient was agreeable to do outpatient substance use treatment with [facility]. Patient was also counseled on the medications and need for regular compliance and was encouraged to follow-up with their outpatient appointment for mental health and also for primary care. Mental status exam: General Appearance: Patient appears to be tall, stated age is alert, directable, and cooperative. Patient is in no acute distress and has fair hygiene and groomi ng Behavior: Patient is calmly seated without any agitated behavior. Cooperative. Speech: Patient's speech is fluent and nonpressured. Mood/Affect: Patient reports their mood is "much better", affect is congruent and euthymic. Suicidality/Homicidality: Patient denies having any suicidal or homicidal ideation intent or plan. Perceptions: Patient denies any auditory or visual hallucinations. Though content/process: There is no evidence of any delusional thought content and thought process is linear and goal-directed. more future oriented Memory and concentration: AOX3, grossly intact for the purposes of this session. Can spell "WORLD" backwards correctly. Judgment and insight: Improved with guarded prognosis Impression: Bipolar disorder type I, currently depressed History of PTSD Cocaine abuse Opiate abuse Nicotine dependence Plan: -Continue with discharge today as patient has improved and stabilized psychiatrically and is not currently an imminent threat to herself and/or oth ers. -Continue medications:. Patient to continue on Cymbalta 90 mg daily for mood/pain/anxiety, prazosin 2 mg nightly for nightmares, BuSpar 30 mg twice a day for anxiety, Vistaril 25 mg every 8 hours when necessary for anxiety. Patient received a loading dose of Invega Sustenna 234 mg IM on 10/11/2019 and will be due for her next dose of 156 mg IM dose on 10/18/2019 due for her next maintenance dose of 170 mg IM injection on 11/08/2019 and monthly thereafter. -Patient was counseled on the need for medication compliance and appropriate follow-up at mental health and also primary care for medical issues. Patient verbalized understanding and agreed. -Social work to arrange for and conduct family meeting to ensure safety upon discharge and answer any questions/concerns. Social work also to arrange for patients follow up appointments with [facility] for psychiatric care along with follow up with primary care provider. Patient had stipulated to court order starting on 10/12/2023 mandated outpatient follow-up. -Patient counseled on abstaining from recreational drugs and marijuana and alcohol. Was informed/educated on the adverse effects on their physical and mental health. Patient verbally agreed and understood. Patient was offered substance abuse treatment however declined at this time and wanted to do outpatient substance use treatment. -Patient was instructed to return to the hospital or seek immediate medical care if their psychiatric or medical symptoms do worsen or reoccur. Allergies Allergy/AdvReac Type Severity Reaction Status Date / Time aspirin AdvReac Bleeding Verified 10/05/19 05:23 ibuprofen [From Motrin] AdvReac Bleeding Verified 10/05/19 05:23 Laboratory Results WBC 8.1 k/uL (3.8-10.6) 10/05/19 02:15 RBC 4.12 m/uL (3.80-5.40) 10/05/19 02:15 Hgb 12.4 gm/dL (11.4-16.0) 10/05/19 02:15 Hct 37.3 % (34.0-46.0) 10/05/19 02:15 MCV 90.5 fL (80.0-100.0) 10/05/19 02:15 MCH 30.0 pg (25.0-35.0) 10/05/19 02:15 MCHC 33.2 g/dL (31.0-37.0) 10/05/19 02:15 RDW 12.9 % (11.5-15.5) 10/05/19 02:15 Plt Count 233 k/uL (150-450) 10/05/19 02:15 Sodium 136 mmol/L (137-145) L 10/05/19 02:15 Potassium 3.8 mmol/L (3.5-5.1) 10/05/19 02:15 Chloride 108 mmol/L (98-107) H 10/05/19 02:15 Carbon Dioxide 22 mmol/L (22-30) 10/05/19 02:15 Anion Gap 6 mmol/L 10/05/19 02:15 BUN 13 mg/dL (7-17) 10/05/19 02:15 Creatinine 0.75 mg/dL (0.52-1.04) 10/05/19 02:15 Est GFR (CKD-EPI)AfAm >90 (>60 ml/min/1.73 sqM) 10/05/19 02:15 Est GFR (CKD-EPI)NonAf >90 (>60 ml/min/1.73 sqM) 10/05/19 02:15 Glucose 110 mg/dL (74-99) H 10/05/19 02:[address] Glu mg/dL 100 10/05/19 02:15 Hemoglobin A1c 5.1 % (4.0-6.0) 10/05/19 02:15 Calcium 9.2 mg/dL (8.4-10.2) 10/05/19 02:15 Total Bilirubin 0.3 mg/dL (0.2-1.3) 10/05/19 02:15 Total Bilirubin 0.3 mg/dL (0.2-1.3) 10/05/19 02:15 Conjugated Bilirubin 0.0 mg/dL (0.0-0.3) 10/05/19 02:15 Unconjugated Bilirubin 0.3 mg/dL (0.0-1.1) 10/05/19 02:15 Delta Bilirubin 0.0 mg/dL (0.0-0.2) 10/05/19 02:15 AST 22 U/L (14-36) 10/05/19 02:15 AST 23 U/L (14-36) 10/05/19 02:15 ALT 14 U/L (4-34) 10/05/19 02:15 ALT 14 U/L (4-34) 10/05/19 02:15 Alkaline Phosphatase 47 U/L (38-126) 10/05/19 02:15 Alkaline Phosphatase 47 U/L (38-126) 10/05/19 02:15 Total Protein 6.2 g/dL (6.3-8.2) L 10/05/19 02:15 Total Protein 6.4 g/dL (6.3-8.2) 10/05/19 02:15 Albumin 3.6 g/dL (3.5-5.0) 10/05/19 02:15 Albumin 3.7 g/dL (3.5-5.0) 10/05/19 02:15 Triglycerides 130 mg/dL (<150) 10/05/19 02:15 Cholesterol 159 mg/dL (<200) 10/05/19 02:15 LDL Cholesterol, Calc 102 mg/dL (0-99) H 10/05/19 02:15 HDL Cholesterol 31 mg/dL (40-60) L 10/05/19 02:15 TSH 2.050 mIU/L (0.465-4.680) 10/05/19 02:15 Urine Color Yellow 10/04/19 20:23 Urine Appearance Clear (Clear) 10/04/19 20:23 Urine pH 5.5 (5.0-8.0) 10/04/19 20:23 Ur Specific [place]unction 1.022 (1.001-1.035) 10/04/19 20:23 Urine Protein Negative (Negative) 10/04/19 20:23 Urine Glucose (UA) Negative (Negative) 10/04/19 20:23 Urine Ketones Negative (Negative) 10/04/19 20: Urine Blood Moderate (Negative) H 10/04/19 20:23 Urine Nitrite Negative (Negative) 10/04/19 20: Urine Bilirubin Negative (Negative) 10/04/19 20: Urine Urobilinogen 2.0 mg/dL (<2.0) 10/04/19 20: Ur Leukocyte Esterase Moderate (Negative) H 10/04/19 20:23 Urine RBC <1 /hpf (0-5) 10/04/19 20:23 Urine WBC 1 /hpf (0-5) 10/04/19 20:23 Ur Squamous Epith Cells 3 /hpf (0-4) 10/04/19 20:23 Hyaline Casts 1 /lpf (0-2) 10/04/19 20:23 Urine Mucus Rare /hpf (None) H 10/04/19 20:23 Urine HCG, Qual Not Detected (Not Detectd) 10/04/19 20:23 Urine Opiates Screen Not Detected (NotDetected) 10/04/19 20:23 Ur Oxycodone Screen Not Detected (NotDetected) 10/04/19 20:23 Urine Methadone Screen Not Detected (NotDetected) 10/04/19 20:23 Ur Propoxyphene Screen Not Detected (NotDetected) 10/04/19 20:23 Ur Barbiturates Screen Not Detected (NotDetected) 10/04/19 20:23 U Tricyclic Antidepress Not Detected (NotDetected) 10/04/19 20:23 Ur Phencyclidine Scrn Not Detected (NotDetected) 10/04/19 20:23 Ur Amphetamines Screen Not Detected (NotDetected) 10/04/19 20:23 U Methamphetamines Scrn Not Detected (NotDetected) 10/04/19 20:23 U Benzodiazepines Scrn Not Detected (NotDetected) 10/04/19 20:23 Urine Cocaine Screen Detected (NotDetected) H 10/04/19 20:23 U Marijuana (THC) Screen Not Detected (NotDetected) 10/04/19 20:23 Coronavirus (PCR) Not Detected (Not Detected) 10/08/19 21:50 Vital Signs Temp 97.8 F 10/12/19 06:20 Pulse 58 L 10/12/19 06:20 Resp 16 10/12/19 06:20 BP 87/54 10/12/19 06:20 Pulse Ox 98 10/10/19 06:40 Patient Condition at Discharge: Stable Plan - Discharge Summary New Discharge Prescriptions: New DULoxetine HCL [Cymbalta] 90 mg PO DAILY 30 Days capsule. Nicotine 14Mg/24Hr Patch [Habitrol] 1 patch TRANSDERM DAILY 14 Days patch Paliperidone IM [Invega Sustenna] 156 mg IM ONCE #1 syr Acetaminophen Tab [Tylenol] 650 mg PO Q4HR PRN tab PRN Reason: Pain/Discomfort hydrOXYzine PAMOATE [Vistaril] 25 mg PO Q8HR PRN 30 Days cap PRN Reason: Anxiety Continue Naproxen Sodium [Aleve] 440 mg PO Q6H PRN PRN Reason: Pain busPIRone HCL [Buspar] 30 mg PO BID 30 Days tab Prazosin HCl [Minipress] 2 mg PO HS 30 Days cap Discontinued DULoxetine HCL [Cymbalta] 60 mg PO HS 28 Days capsule. Ondansetron Odt [Zofran Odt] 4 mg PO Q8HR PRN #10 tab PRN Reason: Nausea Topiramate [Topamax] 300 mg PO HS Perphenazine 8mg 24 mg PO HS hydrOXYzine PAMOATE [Vistaril] 50 mg PO TID Discharge Medication List Naproxen Sodium [Aleve] 440 mg PO Q6H PRN 10/04/19 [History] Acetaminophen Tab [Tylenol] 650 mg PO Q4HR PRN tab 10/12/19 [Rx] DULoxetine HCL [Cymbalta] 90 mg PO DAILY 30 Days capsule. 10/12/19 [Rx] Nicotine 14Mg/24Hr Patch [Habitrol] 1 patch TRANSDERM DAILY 14 Days patch 10/12/19 [Rx] Paliperidone IM [Invega Sustenna] 156 mg IM ONCE #1 syr 10/12/19 [Rx] Prazosin HCl [Minipress] 2 mg PO HS 30 Days cap 10/12/19 [Rx] busPIRone HCL [Buspar] 30 mg PO BID 30 Days tab 10/12/19 [Rx] hydrOXYzine PAMOATE [Vistaril] 25 mg PO Q8HR PRN 30 Days cap 10/12/19 [Rx] Follow up Appointment(s)/Referral(s): [facility] [Outside] - 10/13/19 4:00 pm (10-13-19 @ 4:00 with Gem Brice by phone) None,Stated [Primary Care Provider] - 1-2 days Activity/Diet/Wound Care/Special Instructions: Activity and diet as tolerated. Avoid the use of street drugs and alcohol. Take all medications as prescribed. When you are in need of refills on your medications please contact your medical provider and/or outpatient psychiatrist to have this done. Please go to scheduled outpatient appointment for aftercare treatment. If symptoms return or become worse, call the crisis line at and/or go to the nearest emergency room for evaluation. Discharge Disposition: HOME SELF-CARE
[2019-10-12] MEDS ORDERED: busPIRone HCl 10 MG TAB PO SCH (21:00)
== END 2019-10-12 12:57 | disposition home or self-care (01) | DRG 885 ==
LOC: EC 19:18 → 3MHU 10-05 04:41
PROVIDERS: ADMIT Psychiatry & Neurology Psychiatry; ATTEND Psychiatry & Neurology Psychiatry
DX: F31.30 Bipolar disorder, current episode depressed, mild or moderate severity, unspecified (principal); R45.851 Suicidal ideations; F43.10 Post-traumatic stress disorder, unspecified; Z59.0 Homelessness; Z20.828 Contact with and (suspected) exposure to other viral communicable diseases; F14.10 Cocaine abuse, uncomplicated; F17.210 Nicotine dependence, cigarettes, uncomplicated; F11.10 Opioid abuse, uncomplicated; Z63.8 Other specified problems related to primary support group; Z79.899 Other long term (current) drug therapy; Z81.8 Family history of other mental and behavioral disorders; Z91.5 Personal history of self-harm; T43.96XA Underdosing of unspecified psychotropic drug, initial encounter; Z91.128 Patient's intentional underdosing of medication regimen for other reason; Z71.51 Drug abuse counseling and surveillance of drug abuser; Z88.6 Allergy status to analgesic agent; Z56.0 Unemployment, unspecified; M19.90 Unspecified osteoarthritis, unspecified site
CPT/HCPCS: 36415; 80053; 80061; 80076; 80306; 81001; 81025; 82075; 83036; 84443; 85027; 99285

== ENCOUNTER 2019-10-17 18:01 | Emergency (ER) | payer OTHER ==
[2019-10-17 18:18] VITALS: BP 100/63; PULSE 48; RESP 18; TEMP 97.9
--- NOTE | 2019-10-17 18:33 | ED ---
General Adult HPI - General Chief complaint: Recheck/Abnormal Lab/Rx Stated complaint: breast infection Time Seen by Provider: 10/17/19 18:20 Source: patient Mode of arrival: ambulatory Limitations: no limitations - History of Present Illness Initial comments: Dictation was produced using [employer] dictation software. please excuse any grammatical, word or spelling errors. This patient was cared for during a federal and state declared state of emergency secondary to Covid 19 Chief Complaint: 34-year-old female with breast pain History of Present Illness: 4-year-old female presents with right-sided breast pain. Patient states that several months ago she had her bilateral nipples pierced. She develop an infection shortly after. She took out her nipple piercings. The infection to the left breast resolved however since then patient has been having persistent right-sided breast pain. She also states there is some hardness and swelling to the right periareolar region. Patient did note some drainage those coming from the right [place] area. States that there is some pain and induration. No family history of breast cancer. Patient has any pain or masses to the axilla's. The ROS documented in this emergency department record has been reviewed and confirmed by me. Those systems with pertinent positive or negative responses have been documented in the HPI. All other systems are other negative and/or noncontributory. PHYSICAL EXAM: General Impression: Alert and oriented x3, not in acute distress HEENT: Normocephalic atraumatic, extra-ocular movements intact, pupils equal and reactive to light bilaterally, mucous membranes moist. Cardiovascular: Heart regular rate and rhythm Chest: Able to complete full sentences, no retractions, no tachypnea Abdomen: abdomen soft, non-tender, non-distended, no organomegaly Musculoskeletal: Pulses present and equal in all extremities, no peripheral edema Motor: no focal deficits noted Neurological: CN II-XII grossly intact, no focal motor or sensory deficits noted Skin: Intact with no visualized rashes Psych: Normal affect and mood Breast: 3 x 3 cm area of induration to the 3:00 right breast position just next to the areolar margin. ED course: 34-year-old male presents with right breast mass. As upon arrival are within acceptable limits. Patient's otherwise well-appearing. She denies any constitutional symptoms. is negative. Ultrasound of breast was obtained showing 18 x 8 mm axillary lymph node. Sonographic appearances appear normal. There is an small 4 x 1 mm echogenic area in the 3 o'clock position that appears to resemble scarring. No discrete fluid collection. No signs of abscess. Patient reevaluated at bedside. Patient started on Keflex per she is given referral to outpatient breast surgery. Patient agreeable with plan. - Related Data Home Medications Medication Instructions Recorded Confirmed Naproxen Sodium [Aleve] 440 mg PO Q6H PRN 10/04/19 10/05/19 Previous Rx's Medication Instructions Recorded Acetaminophen Tab [Tylenol] 650 mg PO Q4HR PRN tab 10/12/19 DULoxetine HCL [Cymbalta] 90 mg PO DAILY 30 Days capsule. 10/12/19 Nicotine 14Mg/24Hr Patch [Habitrol] 1 patch TRANSDERM DAILY 14 Days 10/12/19 patch Paliperidone IM [Invega Sustenna] 156 mg IM ONCE #1 syr 10/12/19 Prazosin HCl [Minipress] 2 mg PO HS 30 Days cap 10/12/19 busPIRone HCL [Buspar] 30 mg PO BID 30 Days tab 10/12/19 hydrOXYzine PAMOATE [Vistaril] 25 mg PO Q8HR PRN 30 Days cap 10/12/19 Cephalexin [Keflex] 500 mg PO Q6HR 5 Days #20 cap 10/17/19 Allergies Allergy/AdvReac Type Severity Reaction Status Date / Time aspirin AdvReac Bleeding Verified 10/17/19 18:14 ibuprofen [From Motrin] AdvReac Bleeding Verified 10/17/19 18:14 Review of Systems ROS Statement: Those systems with pertinent positive or pertinent negative responses have been documented in the HPI. ROS Other: All systems not noted in ROS Statement are negative. Past Medical History Past Medical History: Chest Pain / Angina Additional Past Medical History / Comment(s): Back pain, Positive tilt table test per patient, syncope History of Any Multi-Drug Resistant Organisms: None Reported Past Surgical History: Appendectomy, Tonsillectomy, Tubal Ligation Additional Past Surgical History / Comment(s): ovarian cyst removal, pins in ankle, colon surgery- fissure Past Anesthesia/Blood Transfusion Reactions: No Reported Reaction Past Psychological History: Anxiety, Bipolar, Depression, PTSD Smoking Status: Current every day smoker Past Alcohol Use History: Occasional Past Drug Use History: None Reported, Cocaine, Heroin - Past Family History Father Family Medical History: No Reported History Additional Family Medical History / Comment(s): Father is alive for patient has had no contact with him. Mother Family Medical History: No Reported History Additional Family Medical History / Comment(s): Mother is alive at age 50 with history of pacemaker placement, bipolar and depression. Patient has 2 sisters one is healthy and one has mental illness. Patient has 2 boys that have ADHD. General Exam Limitations: no limitations Course Vital Signs 10/17/19 18:15 Temperature 97.9 F Pulse Rate 48 L Respiratory 18 Rate Blood Pressure 100/63 O2 Sat by Pulse 100 Oximetry Medical Decision Making - Lab Data Lab Results 10/17/19 Range/Units 18:36 Urine HCG, Qual Not Detected (Not Detectd) Disposition Clinical Impression: Breast infection Disposition: HOME SELF-CARE Condition: Good Instructions (If sedation given, give patient instructions): Cellulitis (DC) Prescriptions: Cephalexin [Keflex] 500 mg PO Q6HR 5 Days #20 cap Is patient prescribed a controlled substance at d/c from ED?: No Referrals: Shu Ruiz MD [STAFF PHYSICIAN] - 1-2 days Time of Disposition: 21:02
--- NOTE | 2019-10-17 20:27 | USB ---
EXAMINATION TYPE: US breast limited RT DATE OF EXAM: 10/17/2019 COMPARISON: NONE CLINICAL HISTORY: periareolar pain and swelling. Periareolar pain and swelling x 2 months. Hx nipple piercing. Scanned periareolar and retroareolar region of right breast and right axillary tail. Hypoechoic area seen 3:00 Zone A: 0.2 x 1.1 x 0.1 cm. Hyperechoic area seen 3:00 Zone A: 0.4 x 0.5 x 0.1 cm. Prominent hypoechoic area seen retroareolar area: 2.8 x 3.3 x 0.8 cm. Hypoechoic area with hyperechoic center and vascular hilum seen right axillary tail: 1.8 x 1.3 x 0.8 cm. Scanned left retroareolar region for comparison. There appears to be shadowing from the nipple but no obvious abnormalities seen at this time. IMPRESSION: There is 18 x 8 mm axillary lymph node demonstrated. Sonographic appearances normal. The re is echogenic small linear area measuring 4 x 1 mm at the 3:00 position near the nipple that could be some scarring. There is no discrete fluid collection. There is no evidence of an abscess.
== END 2019-10-17 21:09 | disposition home or self-care (01) ==
LOC: EC 18:01
DX: N61.0 Mastitis without abscess (principal); F17.200 Nicotine dependence, unspecified, uncomplicated; Z88.6 Allergy status to analgesic agent
CPT/HCPCS: 81025; 99284

== ENCOUNTER → 2019-11-04 | Outpatient (CLI) | payer OTHER ==
[2019-11-04 15:51] VITALS: BP 105/69; PULSE 61; RESP 20; TEMP 97.8
--- NOTE | 2019-11-04 16:21 | P.GSHP ---
History of Present Illness H&P Date: 11/04/19 Chief Complaint: pain right breast Gilda is a 34-year-old white female who had bilateral nipple piercing approximately a year ago. Approximately 6 months ago she noted that both breasts were so poor was some swelling and she took that bilateral nipple piercings out. The left breast improved but the right breast became painful and had increased swelling. She was seen in the emergency room on [id number] this pain. An ultrasound was performed at that time which did not show any discrete fluid collection or evidence of an abscess. There was an 18 x 8 mm axillary lymph node which appeared normal. There was noted as well prominent hypoechoic area in the retroareolar region 2.8 x 3.3 cm in size. She was treated with keflex, however the lump got longer and taller ,and het skin started pealing. She has not had any fever or chills. The area has gotten larger and more painfull on the antibiotic. Recently over the past several weeks has been no change. Family History: maternal grandmother: breast cancer Hormonal History: menarche: 17 1 [place] periods: regular BCP: 1 month hormones: none Surgical history: 1. Tubal ligation 2. Left ankle surgery 3. Exploratory surgery/ abdominal pain/tubes removed secondary to infection 4. Colon surgery/secondary to a fisure 2011 Medical History: 1. bipolar 2. PTSD Social history: Smoke: 6 cigarettes per day Alcohol: Weekly Drugs: Cocaine and marijuana in the past - Constitutional Constitutional: Denies chills, Denies fever - EENT Eyes: bilateral blurred vision Ears: deny: decreased hearing, tinnitus Ears, nose, mouth and throat: Denies headache, Denies sore throat - Breasts Breasts: bilateral: as per HPI - Cardiovascular Comment: Family history of idiopathic subaortic stenosis patient has never been tested Cardiovascular: Reports chest pain, Reports shortness of breath - Respiratory Respiratory: Denies cough, Denies 7 - Gastrointestinal Gastrointestinal: Denies abdominal pain, Denies diarrhea, Denies nausea, Denies vomiting - Genitourinary (Female) Genitourinary: Denies dysuria, Denies hematuria - Menstruation Menstruation: Reports period normal - Musculoskeletal Comment: arthritis left ankle Musculoskeletal: Denies myalgias - Integumentary Integumentary: Denies pruritus, Denies rash - Neurological Neurological: Denies numbness, Denies weakness - Psychiatric Comment: Bipolar, PTSD Psychiatric: Reports anxiety, Reports depression - Endocrine Endocrine: Denies fatigue, Denies weight change - Hematologic/Lymphatic Comment: none - Allergic/Immunologic Allergic/Immunologic: Reports as per HPI Past Medical History Past Medical History: Chest Pain / Angina Additional Past Medical History / Comment(s): Back pain, Positive tilt table test per patient, syncope History of Any Multi-Drug Resistant Organisms: None Reported Past Surgical History: Appendectomy, Tonsillectomy, Tubal Ligation Additional Past Surgical History / Comment(s): ovarian cyst removal, pins in ankle, colon surgery- fissure Past Anesthesia/Blood Transfusion Reactions: No Reported Reaction Past Psychological History: Anxiety, Bipolar, Depression, PTSD Smoking Status: Current every day smoker Past Alcohol Use History: Occasional Additional Past Alcohol Use History / Comment(s): Patient currently smokes 1 pack per day and has been doing so since she was 17 years of age. She denies any marijuana use. She does state she uses cocaine periodically and has been recently using every day. She denies any alcohol use. She denies any narcotic use. Patient states she is homeless. Patient also recently moved from [place] to the [facility] Past Drug Use History: None Reported, Cocaine, Heroin - Past Family History Father Family Medical History: No Reported History Additional Family Medical History / Comment(s): Father is alive for patient has had no contact with him. Mother Family Medical History: No Reported History Additional Family Medical History / Comment(s): Mother is alive at age 50 with history of pacemaker placement, bipolar and depression. Patient has 2 sisters one is healthy and one has mental illness. Patient has 2 boys that have ADHD. Medications and Allergies Home Medications Medication Instructions Recorded Confirmed Type Naproxen Sodium [Aleve] 440 mg PO Q6H PRN 10/04/19 11/04/19 History Acetaminophen Tab [Tylenol] 650 mg PO Q4HR PRN tab 10/12/19 11/04/19 Rx DULoxetine HCL [Cymbalta] 90 mg PO DAILY 30 Days capsule. 10/12/19 11/04/19 Rx Paliperidone IM [Invega Sustenna] 156 mg IM ONCE #1 syr 10/12/19 11/04/19 Rx Prazosin HCl [Minipress] 2 mg PO HS 30 Days cap 10/12/19 11/04/19 Rx busPIRone HCL [Buspar] 30 mg PO BID 30 Days tab 10/12/19 11/04/19 Rx hydrOXYzine PAMOATE [Vistaril] 25 mg PO Q8HR PRN 30 Days cap 10/12/19 11/04/19 Rx Allergies Allergy/AdvReac Type Severity Reaction Status Date / Time aspirin AdvReac Bleeding Verified 11/04/19 15:46 ibuprofen [From Motrin] AdvReac Bleeding Verified 11/04/19 15:46 Surgical - Exam Vital Signs Temp Pulse Resp BP Pulse Ox 97.8 F 61 20 105/69 93 L 11/04/19 15:48 11/04/19 15:48 11/04/19 15:48 11/04/19 15:48 11/04/19 15:48 BMI 34.9 - General obese - Eyes normal ocular movement - ENT no hearing loss, no congestion - Neck no masses, trachea midline - Respiratory normal respiratory effort, clear to auscultation - Cardiovascular Rhythm: regular Heart Sounds: normal: S1, S2 - Abdomen Abdomen: soft, non tender, no guarding, no rigid, no rebound - Integumentary normal turgor - Neurologic no disoriented, no combative - Musculoskeletal normal gait, normal posture - Psychiatric oriented to time, oriented to person, oriented to place, speech is normal, mem ory intact breast exam: BRA: 38C inspection: 3 ptosis bilateral Palpation: Right breast: Multi-positional exam reveals an area of increased fullness 4 cm x 4 cm on the medial aspect of the areolar, this would be consistent with a partially treated breast abscess the skin of this area is mildly erythematous with some scaling Right axilla: No adenopathy of concern Left breast: Multi-positional exam no dominant masses or nodules of concern Left axilla: No adenopathy of concern Results Ultrasound reviewed Assessment and Plan Assessment: Impression: 1. Partially treated right breast abscess 2. Bipolar 3. Posttraumatic stress disorder 4. Anxiety/depression Plan: 1. Repeat right breast ultrasound 2. Follow-up with Dr. Aguilera after right breast ultrasound consider drainage of the area CC: the patient has no primary care Dr. encounter 45 minutes, > 50% of time in planning and counselling
== END | disposition home or self-care (01) ==
LOC: WWCWWP 15:39
PROVIDERS: ATTEND Surgery
DX: Z53.9 Procedure and treatment not carried out, unspecified reason (principal)

== ENCOUNTER → 2019-11-07 | Outpatient (CLI) | payer OTHER ==
--- NOTE | 2019-11-07 11:54 | USB ---
Reason for exam: clinical finding. History: Family history of breast cancer in maternal grandmother and breast cancer in maternal aunt. Indicated problem(s): pain in the right breast. Physical Findings: Nurse Summary: healing area 3 o'clock (nurse dw). US Breast RT Right complete breast ultrasound includes all four quadrants, the retroareolar region and axilla. Finding demonstrates a 2.8 x 0.9 x 3.3cm hypoechoic lesion at the posterior nipple/3 o'clock, persistent and phlegmomous area with drainable abscess and a 3.0 x 1.0 x 3.2cm lymph node at the axilla. These results were verbally communicated with the patient and result sheet given to the patient on 11/07/19. ASSESSMENT: Probably benign, BI-RAD 3 RECOMMENDATION: Ultrasound of the right breast in 1 month. (4 weeks) Manage patient on a clinical basis.
== END | disposition home or self-care (01) ==
LOC: RADUSWWP 10:50
PROVIDERS: ATTEND Surgery
DX: R92.8 Other abnormal and inconclusive findings on diagnostic imaging of breast (principal)

== ENCOUNTER → 2019-11-10 | Outpatient (CLI) | payer OTHER ==
[2019-11-10 10:22] VITALS: BP 106/72; PULSE 72; RESP 16; TEMP 97.6
--- NOTE | 2019-11-10 10:35 | P.PN ---
Subjective Progress Note Date: 11/10/19 Principal diagnosis: Abscess right breast Gilda is a 34-year-old white female who had bilateral nipple piercing approximately a year ago. Approximately 6 months ago she noted that both breasts were sore and there was some swelling and she took the bilateral nipple piercings out. The left breast improved but the right breast became painful and had increased swelling. [place] [id number] for this pain. An ultrasound was performed at that time which did not show any discrete fluid collection or evidence of an abscess. There was an 18 x 8 mm axillary lymph node which appeared normal. Also noted was a prominent hypoechoic area in the retroareolar region 2.8 x 3.3 cm in size. She was treated with keflex, however the lump got longer and taller and the skin started pealing. She has not had any fever or chills. The area seems more superficial sense last week. He is also more painful at this time. A repeat [place] [id number]. This revealed a 2.8 cm hypoechoic lesion at the posterior nipple 3:00. Persistent 5 minus in nature. Additionally 3 cm lymph node was noted at the axilla. This was felt to be most likely benign however a drainable fluid collection was identified. I reviewed this with the radiologist and he feels that this may be phlegmonous and the best be treated with operative drainage. Objective - Vital Signs Vital signs: Vital Signs Temp 97.6 F 11/10/19 10:18 Pulse 72 11/10/19 10:18 Resp 16 11/10/19 10:18 BP 106/72 11/10/19 10:18 Pulse Ox 98 11/10/19 10:18 Intake & Output 11/09/19 11/10/19 11/10/19 18:59 06:59 18:59 Weight 111.584 kg - Constitutional General appearance: Present: average body habitus - EENT Eyes: Present: EOMI ENT: Present: hearing grossly normal - Neck Neck: Present: normal ROM - Integumentary Integumentary Comment(s): Right breast: Right periareolar fluctuance which corresponds with the area seen on ultrasound; approximately 3 cm in size Some peeling of the skin over this site Assessment and Plan Assessment: Impression: 1. Right periareolar fluctuance probable abscess Plan: 1. Percutaneous aspiration 2. Patient to be started on antibiotics 3. Cultures to be obtained Discussed the risks and benefits of aspiration of the area of concern. The patient understands that this does not cause resolution she may have to go to the operating room for incision and drainage. We've also discussed radiology draining that with ultrasound guidance and at this time the patient would prefer to have it done here now. Cc: Dr. Conde encounter 15 minutes, > 50% of time in planning and counselling
--- NOTE | 2019-11-10 10:44 | P.PCN ---
Date of Procedure: 11/10/19 Preoperative Diagnosis: right breast abscess Postoperative Diagnosis: same Procedure(s) Performed: Aspiration right breast abscess Anesthesia: local Surgeon: Shu Ruiz Pathology: other (Fluid from aspiration of right breast abscess) Condition: stable Disposition: same day Indications for Procedure: Right breast swelling/fluid collection noted on ultrasound Operative Findings: Seropurulent fluid Description of Procedure: Gilda is a 34-year-old white female who had noted an area of swelling in her right breast which had not resolved over the past several weeks. An ultrasound was performed which revealed a fluid collection consistent with abscess. This is superficial in the areas of the site. The patient was given the option of ultrasound-guided aspiration however wishes to attempt an aspiration the office today. This can benefits discussed and she wished to proceed. The area of concern was prepped using alcohol. 1% lidocaine was used to anesthetize the skin. An 18-gauge needle on a 20 mL syringe was inserted into the area of fluctuance. Approximately 3 mL of seropurulent fluid was obtained. Cultures were obtained. The patient will be started on Keflex and will follow- up next week. She understands if the area becomes more swollen and does not resolve may need to do operative incision and drainage. Additionally if she notices any fever or chills or concerns she should go immediately to the emergency room. Otherwise the patient will follow-up next week. cc: Dr. Conde
== END | disposition home or self-care (01) ==
LOC: WWCWWP 10:09
PROVIDERS: ATTEND Surgery
DX: N64.9 Disorder of breast, unspecified (principal)
CPT/HCPCS: 87070; 87075; 87205; 88108; 88305

== ENCOUNTER → 2020-02-07 | Outpatient (CLI) | payer OTHER ==
[2020-02-07 13:06] LABS: Basophils # (A) 0.1 k/uL (0-0.2); Basophils % (A) 1 %; Eosinophils # (A) 0.3 k/uL (0-0.7); Eosinophils % (A) 3 %; HCT 40.4 % (34.0-46.0); HGB 13.6 gm/dL (11.4-16.0); Lymphocytes # (A) 1.9 k/uL (1.0-4.8); Lymphocytes % (A) 20 %; MCH 30.8 pg (25.0-35.0); MCHC 33.7 g/dL (31.0-37.0); MCV 91.5 fL (80.0-100.0); Mean Platelet Volume 7.2; Monocytes # (A) 0.4 k/uL (0-1.0); Monocytes % (A) 4 %; Neutrophils % (A) 72 %; Platelet Count 269 k/uL (150-450); RBC 4.42 m/uL (3.80-5.40); RDW 12.2 % (11.5-15.5); WBC 9.7 k/uL (3.8-10.6)
[2020-02-07 22:43] LABS: Anion Gap 11.4 mmol/L (4.00-12.00); Carbon Dioxide 18.6 mmol/L (21.6-31.8); Lithium 0.2 mmol/L (0.5-1.2); Potassium 3.9 mmol/L (3.5-5.5)
== END | disposition home or self-care (01) ==
LOC: LABWHC1 11:33
PROVIDERS: ATTEND Nurse Practitioner Psychiatric/Mental Health
DX: F31.5 Bipolar disorder, current episode depressed, severe, with psychotic features (principal); Z79.899 Other long term (current) drug therapy
CPT/HCPCS: 36415; 80051; 80178; 85025

== ENCOUNTER 2020-02-29 17:55 | Emergency (ER) | payer OTHER ==
[2020-02-29 18:02] VITALS: RESP 18; TEMP 98
--- NOTE | 2020-02-29 18:48 | ED ---
General Adult HPI - General Source: patient, RN notes reviewed Mode of arrival: ambulatory Limitations: no limitations <Derick Krishnan - Last Filed: 02/29/20 18:45> <Jordi Núñez - Last Filed: 03/01/20 02:08> - General Chief complaint: Psychiatric Symptoms Stated complaint: MENTAL HEALTH Time Seen by Provider: 02/29/20 18:25 - History of Present Illness Initial comments: Patient is a pleasant 35-year-old female presenting to the emergency department with anxiety depression. Patient does have history of previous cutting and is having thoughts of doing that again to her wrist. No homicidal thoughts. No alcohol use. Patient has a former history of cocaine use however has been clean for 5-6 weeks. No new physical complaints. Patient is eating and sleeping well. No homicidal thoughts. No hallucinations. (Derick Krishnan) - Related Data Home Medications Medication Instructions Recorded Confirmed DULoxetine HCL [Cymbalta] 90 mg PO DAILY 02/29/20 02/29/20 Paliperidone IM [Invega Sustenna] 234 mg IM Q28D 02/29/20 02/29/20 lamoTRIgine [LaMICtal] See Taper PO HS 02/29/20 02/29/20 Allergies Allergy/AdvReac Type Severity Reaction Status Date / Time aspirin AdvReac Bleeding Verified 02/29/20 19:04 ibuprofen [From Motrin] AdvReac Bleeding Verified 02/29/20 19:04 Review of Systems ROS Other: All systems not noted in ROS Statement are negative. Constitutional: Denies: fever Eyes: Denies: eye pain ENT: Denies: ear pain Respiratory: Denies: cough Cardiovascular: Denies: chest pain Endocrine: Denies: fatigue Gastrointestinal: Denies: abdominal pain Genitourinary: Denies: dysuria Musculoskeletal: Denies: back pain Skin: Denies: rash Psychiatric: Reports: anxiety, depression, suicidal thoughts <Derick Krishnan - Last Filed: 02/29/20 18:45> ROS Other: All systems not noted in ROS Statement are negative. <Jordi Núñez - Last Filed: 03/01/20 02:08> ROS Statement: Those systems with pertinent positive or pertinent negative responses have been documented in the HPI. Past Medical History Past Medical History: Chest Pain / Angina Additional Past Medical History / Comment(s): Back pain, Positive tilt table test per patient, syncope History of Any Multi-Drug Resistant Organisms: None Reported Past Surgical History: Appendectomy, Tonsillectomy, Tubal Ligation Additional Past Surgical History / Comment(s): ovarian cyst removal, pins in ankle, colon surgery- fissure Past Anesthesia/Blood Transfusion Reactions: No Reported Reaction Past Psychological History: Anxiety, Bipolar, Depression, PTSD Smoking Status: Current every day smoker Past Alcohol Use History: Occasional Past Drug Use History: Cocaine, Heroin - Past Family History Father Family Medical History: No Reported History Additional Family Medical History / Comment(s): Father is alive for patient has had no contact with him. Mother Family Medical History: No Reported History Additional Family Medical History / Comment(s): Mother is alive at age 50 with history of pacemaker placement, bipolar and depression. Patient has 2 sisters one is healthy and one has mental illness. Patient has 2 boys that have ADHD. <Derick Krishnan - Last Filed: 02/29/20 18:45> General Exam Limitations: no limitations General appearance: alert, in no apparent distress Head exam: Present: normocephalic Eye exam: Present: normal appearance Neck exam: Present: normal inspection Respiratory exam: Present: normal lung sounds bilaterally Cardiovascular Exam: Present: regular rate, normal rhythm GI/Abdominal exam: Present: soft. Absent: tenderness Extremities exam: Present: normal inspection Neurological exam: Present: alert Psychiatric exam: Present: anxious Skin exam: Present: normal color <Derick Krishnan - Last Filed: 02/29/20 18:45> Course Vital Signs 02/29/20 17:59 Temperature 98.0 F Pulse Rate 77 Respiratory 18 Rate Blood Pressure 118/80 O2 Sat by Pulse 99 Oximetry Disposition <Derick Krishnan - Last Filed: 02/29/20 18:45> Is patient prescribed a controlled substance at d/c from ED?: No <Jordi Núñez - Last Filed: 03/01/20 02:08> Clinical Impression: Mood disorder Disposition: HOME SELF-CARE Condition: Good Instructions (If sedation given, give patient instructions): Mood Disorders (ED) Referrals: None,Stated [Primary Care Provider] - 1-2 days
[2020-02-29] MEDS ORDERED: LORazepam 1 MG TAB PO STA (20:53)
[2020-03-01 02:39] VITALS: BP 117/79; PULSE 79
== END 2020-03-01 02:35 | disposition home or self-care (01) ==
LOC: EC 17:55
DX: F39 Unspecified mood [affective] disorder (principal); F31.9 Bipolar disorder, unspecified; F41.9 Anxiety disorder, unspecified; F17.200 Nicotine dependence, unspecified, uncomplicated; Z79.899 Other long term (current) drug therapy; Z88.6 Allergy status to analgesic agent
CPT/HCPCS: 82075; 99285

== ENCOUNTER 2020-10-02 19:34 | Inpatient (IN) | payer MEDICAID, OTHER ==
[2020-10-02] MEDS ORDERED: ALPRAZolam 0.25 MG TAB PO STA (20:10)
--- NOTE | 2020-10-02 20:21 | ED ---
Psych HPI - General Chief Complaint: Psychiatric Symptoms Stated Complaint: Mental health Time Seen by Provider: 10/02/20 19:55 Source: patient Mode of arrival: ambulatory - History of Present Illness Initial Comments: Patient is a 35-year-old female presenting to the emergency department for psychiatric evaluation. Patient has history of depression, she states her meds ran out about a month ago and it took [facility] one month to get her back in and started her on new medications. She states she just started Zoloft and Abilify about 2 weeks ago. Patient states she has been having increasing suicidal thoughts almost every day. She states she continues to think of different ways that she may end her life. She states that she has an appointment 3 weeks with her counselor but cannot wait that long. Patient denies any homicidal thoughts. She is an occasional smoker, occasional marijuana smoker. She states she did use cocaine about a week ago. She also takes occasional ibuprofen for back pain. She denies being . She has no further complaints at this time. Upon arrival to the ER her vitals are stable. - Related Data Home Medications Medication Instructions Recorded Confirmed ARIPiprazole [Abilify] 2 mg PO HS 10/02/20 10/02/20 Denta 5000 Plus 1.1% 1 applic DENTAL BID 10/02/20 10/02/20 Naproxen 500 mg PO BID PRN 10/02/20 10/02/20 Oxybutynin Chloride [Ditropan] 5 mg PO BID 10/02/20 10/02/20 Phentermine HCl [Adipex-P] 37.5 mg PO DAILY 10/02/20 10/02/20 Prazosin HCl 2 mg PO HS 10/02/20 10/02/20 Sertraline [Zoloft] 50 mg PO DAILY 10/02/20 10/02/20 hydrOXYzine pamoate [Vistaril] 50 mg PO TID PRN 10/02/20 10/02/20 Allergies Allergy/AdvReac Type Severity Reaction Status Date / Time aspirin AdvReac Bleeding Verified 10/02/20 21:10 ibuprofen [From Motrin] AdvReac Bleeding Verified 10/02/20 21:10 Review of Systems ROS Statement: Those systems with pertinent positive or pertinent negative responses have been documented in the HPI. ROS Other: All systems not noted in ROS Statement are negative. Past Medical History Past Medical History: Chest Pain / Angina Additional Past Medical History / Comment(s): Back pain, Positive tilt table test per patient, syncope History of Any Multi-Drug Resistant Organisms: None Reported Past Surgical History: Appendectomy, Back Surgery, Tonsillectomy, Tubal Ligation Additional Past Surgical History / Comment(s): ovarian cyst removal, pins in ankle, colon surgery- fissure, IVDA Past Anesthesia/Blood Transfusion Reactions: No Reported Reaction Past Psychological History: Anxiety, Bipolar, Depression, PTSD Smoking Status: Current every day smoker Past Alcohol Use History: Rare Past Drug Use History: Marijuana - Past Family History Father Family Medical History: No Reported History Additional Family Medical History / Comment(s): Father is alive for patient has had no contact with him. Mother Family Medical History: No Reported History Additional Family Medical History / Comment(s): Mother is alive at age 50 with history of pacemaker placement, bipolar and depression. Patient has 2 sisters one is healthy and one has mental illness. Patient has 2 boys that have ADHD. General Exam - General Exam Comments Initial Comments: GENERAL: Patient is well-developed and well-nourished. Patient is nontoxic and in no acute distress. HEAD: Atraumatic, normocephalic. EYES: Pupils equal round and reactive to light, extraocular movements intact, sclera anicteric, conjunctiva are normal. Eyelids were unremarkable. ENT: TMs normal, nares patent, oropharynx clear without exudates. Moist mucous membranes. NECK: Normal range of motion, supple without lymphadenopathy or JVD. LUNGS: Unlabored respirations. Breath sounds clear to auscultation bilaterally and equal. No wheezes rales or rhonchi. HEART: Regular rate and rhythm without murmurs, rubs or gallops. ABDOMEN: Soft, nontender, normoactive bowel sounds. No guarding, no rebound. No masses appreciated. : Deferred MUSCULOSKELETAL: Normal extremities with adequate strength and normal range of motion, no pitting or edema. No clubbing or cyanosis. NEUROLOGICAL: Patient is alert and oriented x 3. Motor and sensory are also intact. Cranial nerves II through XII grossly intact. Symmetrical smile. Normal speech, normal gait. PSYCH: Depressed mood, normal affect. SKIN: Warm, Dry, normal turgor, no rashes or lesions noted. Limitations: no limitations Course Vital Signs 10/02/20 19:46 Temperature 97.6 F Pulse Rate 75 Respiratory 16 Rate Blood Pressure 121/80 O2 Sat by Pulse 98 Oximetry Medical Decision Making - Medical Decision Making Patient is a 35-year-old female presenting for psychiatric evaluation. She has a history of depression, recently started on 2 new medications but she states it is not helping and she has been having increasing thoughts about harming herself, developing different plans. Vital signs are stable, her exam is normal. Patient was evaluated by EPS, she will be admitted in the psych unit. - Lab Data Lab Results 10/02/20 10/02/20 Range/Units 21:55 21:56 Urine HCG, Qual Not Detected (Not Detectd) Urine Opiates Screen Not Detected (NotDetected) Ur Oxycodone Screen Not Detected (NotDetected) Urine Methadone Screen Not Detected (NotDetected) Ur Propoxyphene Screen Not Detected (NotDetected) Ur Barbiturates Screen Not Detected (NotDetected) U Tricyclic Antidepress Not Detected (NotDetected) Ur Phencyclidine Scrn Not Detected (NotDetected) Ur Amphetamines Screen Detected H (NotDetected) U Methamphetamines Scrn Not Detected (NotDetected) U Benzodiazepines Scrn Not Detected (NotDetected) Urine Cocaine Screen Detected H (NotDetected) U Marijuana (THC) Screen Not Detected (NotDetected) Disposition Clinical Impression: Depression, Suicidal ideation Disposition: TRANSFER TO PSYCH HOSP/UNIT Condition: Stable Referrals: None,Stated [Primary Care Provider] - 1-2 days Decision Date: 10/02/20 Decision Time: 22:59
[2020-10-02 22:46] LABS: Amphetamine Screen,Urine Detected (NotDetected); Barbiturate Screen,Urine Not Detected (NotDetected); Benzodiazepines Screen,Urine Not Detected (NotDetected); Cocaine Screen,Urine Detected (NotDetected); Methadone Screen, Urine Not Detected (NotDetected); Opiate Screen,Urine Not Detected (NotDetected); Oxycodone Screen, Urine Not Detected (NotDetected); Phencyclidine Screen,Urine Not Detected (NotDetected); Tricyclic Antidepressant,Urine Not Detected (NotDetected); Urn Cannabinoid Scrn Not Detected (NotDetected)
[2020-10-03] MEDS ORDERED: MAGNESIUM HYDROXIDE 2,400 MG/10 ML CUP PO PRN (00:21)
[2020-10-03] MEDS ORDERED: MAG HYDROX/AL HYDROX/SIMETH 30 ML CUP PO PRN (00:21)
[2020-10-03] MEDS ORDERED: LORazepam 2 MG/ML INJ IM PRN (00:23)
[2020-10-03] MEDS ORDERED: HALOPERIDOL LACTATE 5 MG/ML 1 ML VIAL IM PRN (00:23)
[2020-10-03] MEDS: OXYBUTYNIN CHLORIDE 5 MG TAB PO SCH ×2 (08:20→20:23)
[2020-10-03] MEDS: NAPROXEN 250 MG TAB PO PRN ×2 (08:22→20:25)
[2020-10-03] MEDS ORDERED: NICOTINE 14MG/24HR PATCH TRANSDERM SCH (09:00)
[2020-10-03] MEDS ORDERED: SERTRALINE 50 MG TAB PO SCH (09:00)
[2020-10-03] MEDS: NON FORMULARY DRUG (Phentermine Hcl [Adipex-P] 37.5 MG Tablet) PO SCH (09:16)
[2020-10-03] MEDS: DENTA MUCOUS MEM SCH ×2 (09:16→22:16)
--- NOTE | 2020-10-03 11:54 | P.HP ---
Psychiatric H&P - . H&P Date: 10/03/20 History & Physical: Allergies Allergy/AdvReac Type Severity Reaction Status Date / Time aspirin AdvReac Bleeding Verified 10/03/20 00:00 ibuprofen [From Motrin] AdvReac Bleeding Verified 10/03/20 00:00 Vital Signs Temp 98.6 F 10/03/20 00:08 Pulse 64 10/03/20 00:08 Resp 17 10/03/20 00:08 BP 105/71 10/03/20 00:08 Pulse Ox 98 10/02/20 19:46 Intake & Output 10/02/20 10/03/20 10/03/20 18:59 06:59 18:59 Weight 122.697 kg Laboratory Last Values Urine HCG, Qual Not Detected (Not Detectd) 10/02/20 21:55 Urine Opiates Screen Not Detected (NotDetected) 10/02/20 21:56 Ur Oxycodone Screen Not Detected (NotDetected) 10/02/20 21:56 Urine Methadone Screen Not Detected (NotDetected) 10/02/20 21:56 Ur Propoxyphene Screen Not Detected (NotDetected) 10/02/20 21:56 Ur Barbiturates Screen Not Detected (NotDetected) 10/02/20 21:56 U Tricyclic Antidepress Not Detected (NotDetected) 10/02/20 21:56 Ur Phencyclidine Scrn Not Detected (NotDetected) 10/02/20 21:56 Ur Amphetamines Screen Detected (NotDetected) H 10/02/20 21:56 U Methamphetamines Scrn Not Detected (NotDetected) 10/02/20 21:56 U Benzodiazepines Scrn Not Detected (NotDetected) 10/02/20 21:56 Urine Cocaine Screen Detected (NotDetected) H 10/02/20 21:56 U Marijuana (THC) Screen Not Detected (NotDetected) 10/02/20 21:56 Coronavirus (PCR) Not Detected (Not Detectd) 10/02/20 23:21 10/03/20 11:53 IDENTIFYING DATA: Patient is a single, unemployed, 35 year old female who was admitted for worsening depression. HPI: Patient presented to the hospital on 10/02/2020, but in ambulatory with a chief complaint of worsening depression and suicidal ideation. The patient reports that she has recently had a medication change after being off her medications and started on new medications on 09/12/2020. Prior to this, the patient reports that she was not adherent with her peers to prescribe medication regimen of Cymbalta, Lamictal, and Topamax. The patient reports that she was started on a regimen of Zoloft, Abilify, and Vistaril. She reports that with these medications she has had no significant benefit in managing her depression. She endorsed significant symptoms of depression including hopelessness, low motivation, low energy, as well as chronic suicidal ideation. The patient reports that when she was driving, she would often visualize herself crashing her car and that these thoughts have become more and more intrusive. She reports no suicidal attempt this time. She states that she last attempted suicide at the age of 19. This was her only attempt. Patient vehemently denies any homicidal ideation, intention, and/or plan. She reports no auditory or visual hallucinations. She denies any paranoia or delusions. The patient does admit to crack cocaine use one week prior to this admission. She denies any other drug use. PAST PSYCHIATRIC HISTORY: Patient states that she has previous diagnoses of depression, anxiety bipolar disorder, anxiety, and PTSD. The patient has had multiple trials of medications including Cymbalta, Topamax, vraylar, Lamictal, Invega. Her current regimen at home include Zoloft, Vistaril, Minipress, and Abilify. The patient has had more than 5 inpatient psychiatric hospitalizations. Her previous psychiatric hospitalization was on this unit in September of 2019. The patient currently follows outpatient with [facility]. She reports one prior suicide attempt when she was 19 years old. PMH: Past Medical History: Chest Pain / Angina Additional Past Medical History / Comment(s): Back pain, Positive tilt table test per patient, syncope History of Any Multi-Drug Resistant Organisms: None Reported Past Surgical History: Appendectomy, Back Surgery, Tonsillectomy, Tubal Ligation Additional Past Surgical History / Comment(s): ovarian cyst removal, pins in ankle, colon surgery- fissure, IVDA Past Anesthesia/Blood Transfusion Reactions: No Reported Reaction Past Psychological History: Anxiety, Bipolar, Depression, PTSD Smoking Status: Current every day smoker Past Alcohol Use History: Rare Past Drug Use History: Marijuana ALLERGIES: Aspirin, ibuprofen CHEMICAL DEPENDENCY HISTORY: Patient was that she last used crack cocaine approximately a week prior to this admission. She reports that she uses crack cocaine once every 3 months or so. She reports that she smokes half pack per day of tobacco. She denies any significant alcohol use. She reports no illicit drug use other than the crack cocaine. FAMILY PSYCHIATRIC/SUBSTANCE USE HISTORY: The patient presented her mother has depression. She reports that her sister has been diagnosed borderline personality disorder. 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 She is currently unemployed and is attempting to obtain disability. She states that she has 2 kids who are estranged to her after she was previously sex traffic. Patient does report a significant history of trauma. The patient currently lives with her fianc with whom she has been with the last year and a half. MENTAL STATUS EXAM: General Appearance: Patient appears to be stated age is alert, directable, and attempts to cooperate. Patient appears to have fair hygiene and grooming. Patient has an obese body habitus. Behavior: Patient is lying in bed without any agitated behavior. Eye contact is intermittent. Speech: Spontaneous, fluent, with normal rate, tone, and volume. Mood/Affect: Patient reports their mood is depressed, affect is congruent and withdrawn. Suicidality/Homicidality: The patient is currently denying any suicidal or homicidal ideation, intention, and/or plan. Perceptions: Patient denies any auditory or visual hallucinations. Though content/process: There is no evidence of any delusional thought content and thought process is linear and goal-directed. Memory and concentration: AOX3, grossly intact for the purposes of this session. Can spell "WORLD" backwards Judgment and insight: Fair STRENGTHS/WEAKNESSES: Strength is that patient is resilient and has a supportive fianc. Weakness is that patient has poor coping skills and a history of nonadherence with treatment INTELLECT: average IMPRESSIONS: Bipolar disorder type I, currently depressed History of PTSD Cocaine abuse Nicotine dependence PLAN: -Patient is admitted under voluntary status to MHU for stabilization of psychiatric symptoms and safety. Patient signed adult voluntary form and medication consent and is placed in patient's chart. -Medications : Increase the patient's Zoloft to 75 mg by mouth daily for depression/anxiety/PTSD Increase Abilify to 5 mg by mouth at bedtime for mood stabilization Continue prazosin 2 mg by mouth at bedtime for PTSD related nightmares May continue phentermine if patient brings in the medication. -Ativan Haldol PRN for agitation/aggression -Patient was counselled on substance abuse and desired to cut back on use -Patient was informed of the risks, benefits and side effects of the medication and patient verbally consented to taking the medications. Patient signed med consent form and was placed in chart. -Internal Medicine consult to perform medical evaluation and physical. -NRT - nicotine patch -SW on board for discharge planning. Encourage patient to participate in groups to work on coping skills. 10/03/20 11:53
[2020-10-03] MEDS: ACETAMINOPHEN TAB 325 MG TAB PO PRN ×2 (18:10→23:43)
[2020-10-03] MEDS: LORazepam 1 MG TAB PO PRN (18:12)
--- NOTE | 2020-10-03 19:42 | P.CONS ---
History of Present Illness - Reason for Consult Consult date: 10/03/20 - History of Present Illness Patient was seen with mental health unit akira Florencehel. I was never alone with the patient. Patient is a 35-year-old female with a PMH of polysubstance abuse, back surgery, tobacco abuse, and depression who had presented to the emergency room with complaints of depression and suicidal ideation. The patient was admitted to the mental health unit where she was seen and evaluated. The patient reported ongoing feelings of depression. The patient was fixated on receiving opiates for her back pain. The patient notes that she does not see a pain management doctor and that she has been visiting multiple emergency rooms for pain control. Notes that her pain is chronic, lower back, and unchanged. Denied weakness but reported that the pain occasionally travels down her left leg. When asked why she hasn't made an appointment for pain management physician, she notes that she has not had the time. She also reports that her orthopedic surgeon had recommended an epidural, for which she did not have the time to follow up. Reported smoking 5-10 cigarettes daily along with using cocaine, with last use within a week. Denied chest pain, shortness of breath, fever, chills, cough. Denied abdominal pain, nausea, vomiting. She became very hostile when told that she will not be prescribed opiates. Patient was told that she will continue to receive Motrin, Tylenol, and Aleve, but she stormed out of the evaluation room swearing at the staff and slamming doors. Review of systems: Pertinent positives and negatives as discussed in HPI, a complete review of systems was performed and all other systems are negative. Physical examination: General: non toxic, no distress, appears at stated age, obese Derm: no unusual rashes/lesions no unusual ecchymoses, warm, dry Head: atraumatic, normocephalic, symmetric Eyes: EOMI, no lid lag, anicteric sclera, pupils equal round reactive to light ENT: Nose and ears atraumatic, no thrush, no pharyngeal erythema Neck: No thyromegaly, no cervical lymphadenopathy, trachea midline, supple Mouth: no lip lesion, mucus membranes moist Cardiovascular: S1S2 reg, no murmur, positive posterior tibial pulse bilateral, no edema, capillary refill less than 2 seconds Lungs: CTA bilateral, no rhonchi, no rales , no accessory muscle use Abdominal: soft, nontender to palpation, no guarding, no appreciable organomegaly, normal bowel sounds Ext: no gross muscle atrophy, muscle strength 5 out of 5 in all 4 extremities grossly, no contractures, Neuro: CN II-XI grossly intact, light touch intact all 4 extremities, finger to nose within normal limits, Psych: Alert, oriented, depressed and hostile affect Assessment/plan Chronic lower back pain -Continue with Naproxyn and Tylenol -Consult pain management Substance abuse, tobacco abuse -Strongly advised on the importance of cessation -Nicotine patch when necessary Depression with suicidal ideation -As per psychiatry Thank you for allowing us to participate in the care of this patient. We will follow peripherally. Do not hesitate to contact us with questions. Someone can be reached from the [facility] hospitalist group at all hours of the day at [phone]. Past Medical History Past Medical History: Chest Pain / Angina Additional Past Medical History / Comment(s): Back pain, Positive tilt table test per patient, syncope History of Any Multi-Drug Resistant Organisms: None Reported Past Surgical History: Appendectomy, Back Surgery, Tonsillectomy, Tubal Ligation Additional Past Surgical History / Comment(s): ovarian cyst removal, pins in ankle, colon surgery- fissure, IVDA Past Anesthesia/Blood Transfusion Reactions: No Reported Reaction Smoking Status: Current every day smoker - Past Family History Father Family Medical History: No Reported History Additional Family Medical History / Comment(s): Father is alive for patient has had no contact with him. Mother Family Medical History: No Reported History Additional Family Medical History / Comment(s): Mother is alive at age 50 with history of pacemaker placement, bipolar and depression. Patient has 2 sisters one is healthy and one has mental illness. Patient has 2 boys that have ADHD. Medications and Allergies Home Medications Medication Instructions Recorded Confirmed Type ARIPiprazole [Abilify] 2 mg PO HS 10/02/20 10/03/20 History Denta 5000 Plus 1.1% 1 applic DENTAL BID 10/02/20 10/03/20 History Naproxen 500 mg PO BID PRN 10/02/20 10/03/20 History Oxybutynin Chloride [Ditropan] 5 mg PO BID 10/02/20 10/03/20 History Phentermine HCl [Adipex-P] 37.5 mg PO DAILY 10/02/20 10/03/20 History Prazosin HCl 2 mg PO HS 10/02/20 10/03/20 History Sertraline [Zoloft] 50 mg PO DAILY 10/02/20 10/03/20 History hydrOXYzine pamoate [Vistaril] 50 mg PO TID PRN 10/02/20 10/03/20 History Allergies Allergy/AdvReac Type Severity Reaction Status Date / Time aspirin AdvReac Bleeding Verified 10/03/20 00:00 ibuprofen [From Motrin] AdvReac Bleeding Verified 10/03/20 00:00 Physical Exam Vitals: Vital Signs Temp Pulse Pulse Resp BP BP Pulse Ox 10/03/20 00:08 98.6 F 64 17 105/71 10/02/20 19:46 97.6 F 75 16 121/80 98 Intake and Output 10/03/20 10/03/20 10/03/20 06:59 14:59 22:59 Other: Weight 122.697 kg Results Labs: Abnormal Lab Results - Last 24 Hours (Table) 10/02/20 Range/Units 21:56 Ur Amphetamines Screen Detected H (NotDetected) Urine Cocaine Screen Detected H (NotDetected)
[2020-10-03] MEDS: haloperidoL 5 MG TAB PO PRN (20:23)
[2020-10-03] MEDS: ARIPiprazole 5 MG TAB PO SCH (20:23)
[2020-10-03] MEDS: PRAZOSIN 1 MG CAP PO SCH (20:23)
[2020-10-03] MEDS ORDERED: ARIPiprazole 2 MG TAB PO SCH (21:00)
[2020-10-04 07:16] VITALS: RESP 18
[2020-10-04] MEDS: NAPROXEN 250 MG TAB PO PRN ×2 (08:56→21:53)
[2020-10-04] MEDS: OXYBUTYNIN CHLORIDE 5 MG TAB PO SCH ×2 (08:57→20:33)
[2020-10-04] MEDS ORDERED: SERTRALINE 25 MG TAB PO SCH (09:00)
[2020-10-04] MEDS: DENTA MUCOUS MEM SCH ×2 (09:03→20:37)
[2020-10-04] MEDS: NON FORMULARY DRUG (Phentermine Hcl [Adipex-P] 37.5 MG Tablet) PO SCH (09:03)
--- NOTE | 2020-10-04 11:22 | P.PN ---
Progress Note - Text Progress Note Date: 10/04/20 Interval History: Patient was seen resting in bed and refused to get out of bed to speak with chart writer in the office. Patient reports that she has significant back pain and is unable to get out of bed. The patient did not take her morning medications, stating that it was taking too long in her back was hurting. The patient was encouraged to walk around the unit and get out of bed as sedentary lifestyle may continue to worsening back pain. The patient's misunderstanding. She is currently reporting suicidal ideation but denies any intention or plan. She is not reporting any homicidal ideation, intent, and/or plan. She is not reporting any auditory or visual hallucinations. She reports no paranoia or other delusions. When taking the medications, the patient is not reporting any significant side effects. She reports no issues with sleep or appetite. Mental Status Exam: General Appearance: Patient appears to be stated age is alert, directable, and attempts to cooperate. Patient appears to have fair hygiene and grooming. Patient has an obese body habitus. Behavior: Patient is lying in bed without any agitated behavior. Eye contact is poor. Speech: Spontaneous, fluent, with normal rate, tone, and volume. Mood/Affect: Patient reports their mood is "annoyed and in pain", affect is congruent and irritable Suicidality/Homicidality: The patient endorses suicidal ideation but no intention or plan. She reports no homicidal ideation, intention, and/or plan. Perceptions: Patient denies any auditory or visual hallucinations. Though content/process: There is no evidence of any delusional thought content and thought process is linear and goal-directed. Memory and concentration: AOX3, grossly intact for the purposes of this session. Can spell "WORLD" backwards Judgment and insight: Fair Vital Signs Temp 96.6 F L 10/04/20 07:00 Pulse 51 L 10/04/20 07:00 Resp 18 10/04/20 07:00 BP 105/71 10/03/20 00:08 Pulse Ox 98 10/02/20 19:46 Assessment Bipolar disorder type I, currently depressed History of PTSD Cluster B personality traits Cocaine abuse Nicotine dependence Plan: -Patient continues to meet criteria for inpatient psychiatric admission for symptom stabilization and safety. Patient has signed adult voluntary form and medication consent and was placed in patient's chart. -Encourage the patient to participate more in milieu activities to walk around the unit rather than remain sedentary in bed which may contribute to worsening back pain. -Medications: Increase the patient's Zoloft to 100 mg by mouth daily for depression/anxiety/PTSD Continue Abilify 5 mg by mouth at bedtime for mood stabilization. May titrate over the weekend in response to patient's target symptoms. Continue prazosin 2 mg by mouth at bedtime for PTSD related nightmares -When necessary Ativan and Haldol for agitation/aggression. -NRT - nicotine patch -SW on board for discharge planning. Encouraged the patient to participate in milieu.
[2020-10-04] MEDS: ACETAMINOPHEN TAB 325 MG TAB PO PRN (11:57)
[2020-10-04] MEDS: ARIPiprazole 5 MG TAB PO SCH (20:33)
[2020-10-04] MEDS: PRAZOSIN 1 MG CAP PO SCH (20:33)
[2020-10-05] MEDS: ACETAMINOPHEN TAB 325 MG TAB PO PRN ×3 (01:02→17:15)
[2020-10-05] MEDS: LORazepam 1 MG TAB PO PRN ×2 (01:02→17:14)
[2020-10-05] MEDS: DENTA MUCOUS MEM SCH ×2 (10:04→20:42)
[2020-10-05] MEDS: SERTRALINE 100 MG TAB PO SCH (10:04)
[2020-10-05] MEDS: NON FORMULARY DRUG (Phentermine Hcl [Adipex-P] 37.5 MG Tablet) PO SCH (10:04)
[2020-10-05] MEDS: OXYBUTYNIN CHLORIDE 5 MG TAB PO SCH ×2 (10:04→20:38)
[2020-10-05] MEDS: NAPROXEN 250 MG TAB PO PRN (13:09)
[2020-10-05 16:08] VITALS: TEMP 97.4
[2020-10-05] MEDS: haloperidoL 5 MG TAB PO PRN (17:14)
--- NOTE | 2020-10-05 18:08 | PN ---
PROGRESS NOTE DATE OF SERVICE: 10/05/2020 CHIEF COMPLAINT: The patient had increasing problems with depression and suicidal thinking. She had hopeless and helpless feelings and did not feel medications were helping her. INTERVAL HISTORY: Patient has been doing fair. She had a quiet day yesterday. Mostly she keeps to herself. She did not attend groups. She will spend a fair amount of time in her room. She seemed to show a down mood much of the time. She slept fair. Today again she has mostly been in the room. She did not attend groups so far. She has been quite withdrawn today and pretty much with any interaction she has had with staff she has been more angry and dismissive than anything else. When I made an effort to talk to her she did not make any specific comments. In the midst of my reviewing the records, she promptly got up and walked out of the room and went back to her room. I went down there a while later and asked if there was any questions or concerns, though she did not respond. MENTAL STATUS: Patient was somewhat restless. She did not give much eye contact. She barely said any words at all. She had a flat affect though at times she seemed angry. Her mood was depressed. She was significantly distressed. It was difficult to assess for thought disorder or thoughts of harm. She appeared oriented to her situation and environment. ASSESSMENT: I will continue the current diagnosis and treatment plan. I will continue psychotropic medications the same, namely Zoloft 100 mg a day and Abilify 5 mg at bedtime. I encouraged the patient to either let me know or approach staff with any problems or concerns. We will focus on stabilization and discharge planning. MMODL / YOJANAN: [id number] /
[2020-10-05] MEDS: ARIPiprazole 5 MG TAB PO SCH (20:38)
[2020-10-05] MEDS: PRAZOSIN 1 MG CAP PO SCH (20:39)
[2020-10-06] MEDS: NON FORMULARY DRUG (Phentermine Hcl [Adipex-P] 37.5 MG Tablet) PO SCH (09:25)
[2020-10-06] MEDS: DENTA MUCOUS MEM SCH ×2 (09:25→21:49)
[2020-10-06] MEDS: OXYBUTYNIN CHLORIDE 5 MG TAB PO SCH ×2 (09:27→20:54)
[2020-10-06] MEDS: NAPROXEN 250 MG TAB PO PRN (09:27)
[2020-10-06] MEDS: SERTRALINE 100 MG TAB PO SCH (09:27)
[2020-10-06 09:41] VITALS: BP 109/59; PULSE 69
[2020-10-06] MEDS: ACETAMINOPHEN TAB 325 MG TAB PO PRN ×2 (17:01→21:20)
[2020-10-06] MEDS: LORazepam 1 MG TAB PO PRN (17:02)
[2020-10-06] MEDS: ARIPiprazole 5 MG TAB PO SCH (20:53)
[2020-10-06] MEDS: PRAZOSIN 1 MG CAP PO SCH (20:54)
[2020-10-06] MEDS: hydrOXYzine pamoate 25 MG CAP PO PRN (20:54)
--- NOTE | 2020-10-06 21:39 | P.PN ---
Progress Note - Text Progress Note Date: 10/06/20 Subjective: Patient was seen today as a cross coverage for Dr. Monzon. The patient was evaluated, chart reviewed, case discussed with the treatment team. Patient reports fair sleep last night, and appetite was reported as "better". Patient has not been going to groups and other unit activities today b/o back pain. The patient is compliant with her medications and denies any adverse reactions. Pt. reports feeling depressed with lack of motivation. She endorses symptoms of irr itable mood and feeling easily agitated. Denies feeling suicidal. Denies any hallucinations or manic symptoms. Objective: Vitals has been reviewed. Mental status examination; Appearance: The patient appears stated age, adequately groomed and dressed, no specific features. Gait/posture: Normal gait, Normal arm swinging: No abnormal movements. Attitude and behavior: engaged, cooperative, eye contact. Motor activity: Normal psychomotor activity Speech: Normal rate, tone. Mood: Anxious, depressed. Affect: Constricted Thought form: goal-directed, linear, coherent. Thought content: Non-delusional, denies suicidal thoughts, denies homicidal thoughts, denies intentions or plans. Perception: Denies any auditory or visual hallucinations Attention: No impairment. Orientation: Patient patient was fully oriented to time place person and situation. Insight: Patient has fair insight about her psychiatric disorder. Judgment: Patient has fair judgment about her psychiatric treatment. Assessment: Bipolar disorder type I, currently depressed History of PTSD Cluster B personality traits Cocaine abuse Nicotine dependence Plan: Continue inpatient level of care due to need for further monitoring and stabilization. Precautions: Continue 15 minutes check for safety. Consider medical consultation if any acute medical issues arise. Provide the patient individual, group therapy, substance use disorder counseling to give better insight and learn coping skills. Medications: Zoloft for depression and anxiety symptoms, increase dose to 150 mg daily. Continue Prazosin for nightmares and Abilify for mood stabilization. Continue as needed medications for psychiatric emergencies including psychosis, agitation and anxiety. Continue non-psychiatric medications for medical conditions as recommended by the medical team. Discharge patient to OUTPATIENT services upon a stabilization
[2020-10-07] MEDS: DENTA MUCOUS MEM SCH ×2 (09:10→21:40)
[2020-10-07] MEDS: NON FORMULARY DRUG (Phentermine Hcl [Adipex-P] 37.5 MG Tablet) PO SCH (09:10)
[2020-10-07] MEDS: OXYBUTYNIN CHLORIDE 5 MG TAB PO SCH ×2 (09:11→20:48)
[2020-10-07] MEDS: SERTRALINE 50 MG TAB PO SCH (09:11)
[2020-10-07] MEDS: NAPROXEN 250 MG TAB PO PRN (17:48)
[2020-10-07] MEDS: ACETAMINOPHEN TAB 325 MG TAB PO PRN (17:49)
[2020-10-07] MEDS: LORazepam 1 MG TAB PO PRN (19:24)
[2020-10-07] MEDS: hydrOXYzine pamoate 25 MG CAP PO PRN (20:48)
[2020-10-07] MEDS: ARIPiprazole 5 MG TAB PO SCH (20:49)
[2020-10-07] MEDS: PRAZOSIN 1 MG CAP PO SCH (20:49)
--- NOTE | 2020-10-08 00:39 | P.PN ---
Progress Note - Text Progress Note Date: 10/07/20 Subjective: Patient was seen today as a cross coverage for Dr. Monzon. The patient was evaluated, chart reviewed, case discussed with the treatment team. Patient was seen in bed today as she reports couldn't get up because of the back pain. She was fixated on her back pain and reports just received pain medication from nursing. Generally reports her depression is relatively better, but feels frustrated and irritated because of the back pain. Denies any hallucinations, paranoid ideation, or delusions. Denies any suicidal or homicidal ideation. She reports continues to have flashbacks related to her previous psychological traumas. Objective: Vitals has been reviewed. Mental status examination; Appearance: The patient appears stated age, adequately groomed and dressed, no specific features. Gait/posture: Patient was lying in bed, No abnormal movements. Attitude and behavior: engaged, cooperative, eye contact. Motor activity: Normal psychomotor activity Speech: Normal rate, tone. Mood: Anxious. Affect: Constricted Thought form: goal-directed, linear, coherent. Thought content: Non-delusional, denies suicidal thoughts, denies homicidal thoughts, denies intentions or plans. Perception: Denies any auditory or visual hallucinations Attention: No impairment. Orientation: Patient patient was fully oriented to time place person and situation. Insight: Patient has fair insight about her psychiatric disorder. Judgment: Patient has fair judgment about her psychiatric treatment. Assessment: Bipolar disorder type I, currently depressed History of PTSD Cluster B personality traits Cocaine abuse Nicotine dependence Plan: Continue inpatient level of care due to need for further monitoring and stabilization. Precautions: Continue 15 minutes check for safety. Consider medical consultation if any acute medical issues arise. Provide the patient individual, group therapy, substance use disorder counseling to give better insight and learn coping skills. Medications: Zoloft for depression and anxiety symptoms, 150 mg daily. Continue Prazosin for nightmares and Abilify for mood stabilization. Continue as needed medications for psychiatric emergencies including psychosis, agitation and anxiety. Continue non-psychiatric medications for medical conditions as recommended by the medical team. Discharge patient to OUTPATIENT services upon a stabilization
[2020-10-08] MEDS: DENTA MUCOUS MEM SCH (08:05)
[2020-10-08] MEDS: NON FORMULARY DRUG (Phentermine Hcl [Adipex-P] 37.5 MG Tablet) PO SCH (08:05)
[2020-10-08] MEDS: OXYBUTYNIN CHLORIDE 5 MG TAB PO SCH (08:52)
[2020-10-08] MEDS: SERTRALINE 50 MG TAB PO SCH (08:53)
--- NOTE | 2020-10-08 12:16 | P.DS ---
Providers Date of admission: 10/02/20 23:52 Expected date of discharge: 10/08/20 Attending physician: Carson Monzon MD Consults: 10/03/20 00:21 Consult Physician Routine Consulting Provider: Paige Mars Consult Reason/Comments: H&P and medical Do you want consulting provider notified?: Already Contacted 10/03/20 22:22 Consult Physician Routine Consulting Provider: Gerald White Consult Reason/Comments: Pain management Do you want consulting provider notified?: Yes Primary care physician: Stated None - Discharge Diagnosis(es) (1) Bipolar 1 disorder, depressed Current Visit: Yes Status: Acute Priority: High (2) Chronic post-traumatic stress disorder (PTSD) Current Visit: Yes Status: Acute Priority: High (3) Cluster B personality disorder Current Visit: Yes Status: Chronic Priority: Medium (4) Nicotine dependence Current Visit: Yes Status: Chronic Priority: Medium (5) Cocaine dependence Current Visit: Yes Status: Chronic Priority: Medium Hospital Course: Admission HPI: Patient is a single, unemployed, 35 year old female who was admitted for worsening depression. Patient presented to the hospital on 10/02/2020, brought in ambulatory with a chief complaint of worsening depression and suicidal ideation. The patient reports that she has recently had a medication change after being off her medications and started on new medications on 09/12/2020. Prior to this, the patient reports that she was not adherent with her peers to prescribe medication regimen of Cymbalta, Lamictal, and Topamax. The patient reports that she was started on a regimen of Zoloft, Abilify, and Vistaril. She reports that with these medications she has had no significant benefit in managing her depression. She endorsed significant symptoms of depression including hopelessness, low motivation, low energy, as well as chronic suicidal ideation. The patient reports that when she was driving, she would often visualize herself crashing her car and that these thoughts have become more and more intrusive. She reports no suicidal attempt this time. She states that she last attempted suicide at the age of 19. This was her only attempt. Patient vehemently denies any homicidal ideation, intention, and/or plan. She reports no auditory or visual hallucinations. She denies any paranoia or delusions. The patient does admit to crack cocaine use one week prior to this admission. She denies any other drug use. Patient states that she has previous diagnoses of depression, anxiety bipolar disorder, anxiety, and PTSD. The patient has had multiple trials of medications including Cymbalta, Topamax, vraylar, Lamictal, Invega. Her current regimen at home include Zoloft, Vistaril, Minipress, and Abilify. The patient has had more than 5 inpatient psychiatric hospitalizations. Her previous psychiatric hospitalization was on this unit in September of 2019. The patient currently follows outpatient with [facility]. She reports one prior suicide attempt when she was 19 years old. Hospital course: Upon admission to the unit patient was initially very neil and short in her responses and uncooperative getting out of bed to to "back pain." Patient was however directable and agreeable to commence treatment. The patient's home medications of Zoloft, Abilify, and prazosin were continued. Her Zoloft and Abilify were increased to address her target symptoms of depression/anxiety/PTSD and mood stabilization. The patient was also seen by the medical team for history and physical examination. The patient expressed that she did not like to get out of bed due to back pain. The patient was encouraged to walk around the unit and continued to report that she did not want to leave the bed due to the severity of her back pain. Despite this, the patient appeared to be in no acute stress and was able to get up for meals. Over the course of the hospitalization, the patient's medications were casually titrated to final doses. Zoloft was increased 150 mg by mouth daily and Abilify was continued at 5 mg at bedtime. Prazosin was continued at 2 mg at bedtime. The patient gradually improved in regards her mood, sleep, and became more future oriented. On the day of discharge, the patient is not reporting any suicidal or homicidal ideation, intention, and/or plan. She is not reporting any auditory or visual hallucinations. She experienced a strong desire to live for herself and her family. The patient denies any access to firearms or other weapons. Patient reports no paranoia or other delusions. Patient does have a significant history of substance abuse, however was counseled at great length on avoiding all substances including alcohol and marijuana. The patient was offered inpatient substance-abuse rehab, however declined stating that her use is not severe enough. Patient was counseled on the medications the need for regular compliance and she was encouraged to follow-up with her outpatient appointments for mental health for primary care. Prior to discharge, family meeting will be arranged by the outreach and education social worker to answer any questions and ensure safety. Mental status exam: General Appearance: Patient appears to be stated age is alert, pleasant, and cooperative. Patient is in no acute distress and has fair hygiene and grooming Behavior: Patient is calmly seated without any agitated behavior. Speech: Patient's speech is fluent and nonpressured. Mood/Affect: Patient reports their mood is "much better]", affect is congruent and euthymic. Suicidality/Homicidality: Patient denies having any suicidal or homicidal ideation intent or plan. Perceptions: Patient denies any auditory or visual hallucinations. Though content/process: There is no evidence of any delusional thought content and thought process is linear and goal-directed. more future oriented Memory and concentration: AOX3, grossly intact for the purposes of this session. Can spell "WORLD" backwards correctly. Judgment and insight: Improved with guarded prognosis Impression: Bipolar disorder type I, currently depressed History of PTSD Cluster B personality traits Cocaine abuse Nicotine dependence Plan: -Continue with discharge today as patient has improved and stabilized psychiatrically and is not currently an imminent threat to herself and/or others. Patient will remain at chronically elevated risk for harm to self and/or others due to her substance abuse and impulsivity. -Continue medications: Prazosin 2 mg at bedtime for PTSD related nightmares Zoloft 150 mg by mouth daily for depression/anxiety/PTSD Abilify 5 mg by mouth at bedtime for mood stabilization/augmentation Vistaril 50 mg by mouth 3 times a day when necessary for anxiety -Patient was counseled on the need for medication compliance and appropriate follow-up at mental health and also primary care for medical issues. Patient verbalized understanding and agreed. -Social work to arrange for and conduct family meeting to ensure safety upon discharge and answer any questions/concerns. Social work also to arrange for patients follow up appointments with [facility] for psychiatric care along with follow up with primary care provider. -Patient counseled on abstaining from recreational drugs and marijuana and alcohol. Was informed/educated on the adverse effects on their physical and mental health. Patient verbally agreed and understood. Patient was offered substance abuse treatment however declined at this time. -Patient was instructed to return to the hospital or seek immediate medical care if their psychiatric or medical symptoms do worsen or reoccur. -Psychoeducation and supportive therapy provided to patient. Risks and benefits of pharmacological treatment versus the risks and benefits of nontreatment weight and discussed. Informed consent discussion held. Common side effects of psychotropics discussed such as, but not limited to headache, GI disturbance, sexual dysfunction, movement disorders, sedation, and orthostatic hypotension. Life threatening and blackbox warnings of prescribed medications also discussed. Potential risks of operating a vehicle or heavy machinery discussed with patient at length. Advised on importance of compliance and a reliable and responsible manner. Patient advised to review FDA consumer labeling of all medic ations prior to taking. Patient verbalized understanding of potential risks, and agrees with current treatment plan. Patient advised to medically contact physician/emergency personnel if any acute changes in condition occur. Vital Signs Temp 97.4 F L 10/05/20 16:07 Pulse 69 10/06/20 09:40 Resp 18 10/06/20 09:40 BP 109/59 10/06/20 09:40 Pulse Ox 95 10/05/20 16:07 Allergies Allergy/AdvReac Type Severity Reaction Status Date / Time aspirin AdvReac Bleeding Verified 10/03/20 00:00 ibuprofen [From Motrin] AdvReac Bleeding Verified 10/03/20 00:00 Laboratory Results Urine HCG, Qual Not Detected (Not Detectd) 10/02/20 21:55 Urine Opiates Screen Not Detected (NotDetected) 10/02/20 21:56 Ur Oxycodone Screen Not Detected (NotDetected) 10/02/20 21:56 Urine Methadone Screen Not Detected (NotDetected) 10/02/20 21:56 Ur Propoxyphene Screen Not Detected (NotDetected) 10/02/20 21:56 Ur Barbiturates Screen Not Detected (NotDetected) 10/02/20 21:56 U Tricyclic Antidepress Not Detected (NotDetected) 10/02/20 21:56 Ur Phencyclidine Scrn Not Detected (NotDetected) 10/02/20 21:56 Ur Amphetamines Screen Detected (NotDetected) H 10/02/20 21:56 U Methamphetamines Scrn Not Detected (NotDetected) 10/02/20 21:56 U Benzodiazepines Scrn Not Detected (NotDetected) 10/02/20 21:56 Urine Cocaine Screen Detected (NotDetected) H 10/02/20 21:56 U Marijuana (THC) Screen Not Detected (NotDetected) 10/02/20 21:56 Coronavirus (PCR) Not Detected (Not Detectd) 10/02/20 23:21 Patient Condition at Discharge: Stable Plan - Discharge Summary Discharge Rx Participant: No New Discharge Prescriptions: New Oxybutynin Chloride [Ditropan] 5 mg PO BID 30 Days tab Prazosin [Minipress] 2 mg PO HS 30 Days cap Naproxen [Naprosyn] 500 mg PO BID PRN 30 Days tab PRN Reason: Pain hydrOXYzine pamoate [Vistaril] 50 mg PO TID PRN 30 Days cap PRN Reason: Anxiety Sertraline [Zoloft] 150 mg PO DAILY 30 Days tab ARIPiprazole [Abilify] 5 mg PO HS 30 Days tab Continue Denta 5000 Plus 1.1% 1 applic DENTAL BID Phentermine HCl [Adipex-P] 37.5 mg PO DAILY Discontinued Prazosin HCl 2 mg PO HS Oxybutynin Chloride [Ditropan] 5 mg PO BID Naproxen 500 mg PO BID PRN PRN Reason: Pain hydrOXYzine pamoate [Vistaril] 50 mg PO TID PRN PRN Reason: Anxiety Sertraline [Zoloft] 50 mg PO DAILY ARIPiprazole [Abilify] 2 mg PO HS Discharge Medication List Denta 5000 Plus 1.1% 1 applic DENTAL BID 10/02/20 [History] Phentermine HCl [Adipex-P] 37.5 mg PO DAILY 10/02/20 [History] ARIPiprazole [Abilify] 5 mg PO HS 30 Days tab 10/08/20 [Rx] Naproxen [Naprosyn] 500 mg PO BID PRN 30 Days tab 10/08/20 [Rx] Oxybutynin Chloride [Ditropan] 5 mg PO BID 30 Days tab 10/08/20 [Rx] Prazosin [Minipress] 2 mg PO HS 30 Days cap 10/08/20 [Rx] Sertraline [Zoloft] 150 mg PO DAILY 30 Days tab 10/08/20 [Rx] hydrOXYzine pamoate [Vistaril] 50 mg PO TID PRN 30 Days cap 10/08/20 [Rx] Follow up Appointment(s)/Referral(s): None,Stated [Primary Care Provider] - 1-2 days Activity/Diet/Wound Care/Special Instructions: Activity and diet as tolerated. Avoid the use of street drugs and alcohol. Take all medications as prescribed. When you are in need of refills on your medications please contact your medical provider and/or outpatient psychiatrist to have this done. Please go to scheduled outpatient appointment for aftercare treatment. If symptoms return or become worse, call the crisis line at and/or go to the nearest emergency room for evaluation. Discharge Disposition: HOME SELF-CARE
== END 2020-10-08 15:48 | disposition home or self-care (01) | DRG 885 ==
LOC: EC 19:34 → 3MHU 23:52
PROVIDERS: ADMIT Psychiatry & Neurology Psychiatry; ATTEND Psychiatry & Neurology Psychiatry
DX: F31.30 Bipolar disorder, current episode depressed, mild or moderate severity, unspecified (principal); F14.20 Cocaine dependence, uncomplicated; R45.851 Suicidal ideations; F12.90 Cannabis use, unspecified, uncomplicated; F17.210 Nicotine dependence, cigarettes, uncomplicated; F43.12 Post-traumatic stress disorder, chronic; F60.89 Other specific personality disorders; G89.29 Other chronic pain; Z56.0 Unemployment, unspecified; Z63.8 Other specified problems related to primary support group; Z79.899 Other long term (current) drug therapy; Z81.8 Family history of other mental and behavioral disorders; Z91.5 Personal history of self-harm; Z20.822 Contact with and (suspected) exposure to COVID-19
CPT/HCPCS: 80306; 81025; 82075; 87635; 99285

== ENCOUNTER 2020-11-21 20:17 | Emergency (ER) | payer OTHER ==
[2020-11-21 20:28] VITALS: BP 145/89; PULSE 90; RESP 18; TEMP 98.2
[2020-11-21] MEDS ORDERED: ACET/COD 300 MG/30 MG STARTER PACK 6 TAB BTL PO STA (21:09)
[2020-11-21] MEDS ORDERED: ORPHENADRINE 30 MG/ML 2 ML VIAL IM STA (21:09)
[2020-11-21] MEDS ORDERED: KETOROLAC 15 MG/ML 1 ML VIAL IVP STA (21:09)
--- NOTE | 2020-11-21 21:11 | ED ---
General Adult HPI - General Chief complaint: Back Pain/Injury Stated complaint: back pain Time Seen by Provider: 11/21/20 20:43 Source: patient Mode of arrival: ambulatory Limitations: no limitations - History of Present Illness Initial comments: 35 year-old female patient presents to the emergency department for evaluation of thoracic back pain. Patient states it started a few days ago when she was chasing chickens and ducks in the yard and bent over to catch one when her back started hurting. Patient did have a lumbar fusion 2.5 weeks ago so was co ncerned. She states she is having some pain radiating down the left leg, which she did have before the procedure. She denies any fever or chills. Denies any hematuria, dysuria, urinary frequency, urinary urgency. Denies any falls or injury. Has been taking ibuprofen at home without relief. - Related Data Home Medications Medication Instructions Recorded Confirmed Denta 5000 Plus 1.1% 1 applic DENTAL BID 10/02/20 10/03/20 Previous Rx's Medication Instructions Recorded ARIPiprazole [Abilify] 5 mg PO HS 30 Days tab 10/08/20 Naproxen [Naprosyn] 500 mg PO BID PRN 30 Days tab 10/08/20 Oxybutynin Chloride [Ditropan] 5 mg PO BID 30 Days tab 10/08/20 Prazosin [Minipress] 2 mg PO HS 30 Days cap 10/08/20 Sertraline [Zoloft] 150 mg PO DAILY 30 Days tab 10/08/20 hydrOXYzine pamoate [Vistaril] 50 mg PO TID PRN 30 Days cap 10/08/20 Allergies Allergy/AdvReac Type Severity Reaction Status Date / Time aspirin AdvReac Bleeding Verified 11/21/20 20:28 ibuprofen [From Motrin] AdvReac Bleeding Verified 11/21/20 20:28 Review of Systems ROS Statement: Those systems with pertinent positive or pertinent negative responses have been documented in the HPI. ROS Other: All systems not noted in ROS Statement are negative. Past Medical History Past Medical History: Chest Pain / Angina Additional Past Medical History / Comment(s): Back pain, Positive tilt table test per patient, syncope History of Any Multi-Drug Resistant Organisms: None Reported Past Surgical History: Appendectomy, Back Surgery, Tonsillectomy, Tubal Ligation Additional Past Surgical History / Comment(s): ovarian cyst removal, pins in ankle, colon surgery- fissure, IVDA Past Anesthesia/Blood Transfusion Reactions: No Reported Reaction Past Psychological History: Anxiety, Bipolar, Depression, PTSD Smoking Status: Current every day smoker Past Alcohol Use History: None Reported Past Drug Use History: Cocaine - Past Family History Father Family Medical History: No Reported History Additional Family Medical History / Comment(s): Father is alive for patient has had no contact with him. Mother Family Medical History: No Reported History Additional Family Medical History / Comment(s): Mother is alive at age 50 with history of pacemaker placement, bipolar and depression. Patient has 2 sisters one is healthy and one has mental illness. Patient has 2 boys that have ADHD. General Exam Limitations: no limitations General appearance: alert, in no apparent distress, other (This is a well- developed, well-nourished adult female patient in no acute distress. Vital sign s upon presentation temperature 98.2F, pulse 90, respirations 18, blood pressure 145/89, pulse ox 98% on room air.) Eye exam: Present: normal appearance, PERRL, EOMI. Absent: scleral icterus, conjunctival injection, periorbital swelling ENT exam: Present: normal exam, normal oropharynx, mucous membranes moist Respiratory exam: Present: normal lung sounds bilaterally. Absent: respiratory distress, wheezes, rales, rhonchi, stridor Cardiovascular Exam: Present: regular rate, normal rhythm, normal heart sounds. Absent: systolic murmur, diastolic murmur, rubs, gallop, clicks GI/Abdominal exam: Present: soft, normal bowel sounds. Absent: distended, tenderness, guarding, rebound, rigid Extremities exam: Present: normal inspection, full ROM, normal capillary refill, other (Skin to the lower extremities is pink, warm, dry. Cap refill less than 3 seconds. Pedal and posttibial pulses 2+.). Absent: tenderness, pedal edema, joint swelling, calf tenderness Back exam: Present: paraspinal tenderness (Thoracic), other (There is healing midline and low back incision. Well approximated. No surrounding erythema.). Absent: vertebral tenderness Neurological exam: Present: alert, oriented X3, CN II-XII intact Psychiatric exam: Present: normal affect, normal mood Skin exam: Present: warm, dry, intact, normal color. Absent: rash Course Vital Signs 11/21/20 20:25 Temperature 98.2 F Pulse Rate 90 Respiratory 18 Rate Blood Pressure 145/89 O2 Sat by Pulse 98 Oximetry Medical Decision Making - Medical Decision Making 35 year-old female patient presents to the emergency department for evaluation of mid thoracic back pain. Patient had recent lumbar fusion surgery. Incision looks well. Patient's pain is higher. There is paraspinal tenderness and muscle spasm. She has no concerning symptoms for cauda equina. She was given IM injections of norflex and toradol. She will be discharged to follow-up with her surgeon and primary care physician for recheck as soon as possible. Return parameters were discussed in detail. She verbalizes understanding and agrees with this plan. My attending is Dr. Mello. Disposition Clinical Impression: Thoracic back pain, Muscle spasm Disposition: HOME SELF-CARE Condition: Good Instructions (If sedation given, give patient instructions): Muscle Spasm (ED), Back Pain (ED) Additional Instructions: Perform gentle range of motion exercises. Contact her surgeon inform him of any symptoms. Take medications as directed. Apply ice or heat. Return for any new, worsening, or concerning symptoms. Is patient prescribed a controlled substance at d/c from ED?: No Referrals: Laith Orozco [Primary Care Provider] - 1-2 days Time of Disposition: 21:11
[2020-11-21] MEDS ORDERED: KETOROLAC 15 MG/ML 1 ML VIAL IM STA (21:17)
== END 2020-11-21 21:30 | disposition home or self-care (01) ==
LOC: EC 20:17
DX: M54.6 Pain in thoracic spine (principal); M62.830 Muscle spasm of back; F41.9 Anxiety disorder, unspecified; F31.9 Bipolar disorder, unspecified; F17.200 Nicotine dependence, unspecified, uncomplicated; Z98.51 Tubal ligation status; Z90.89 Acquired absence of other organs; Z90.49 Acquired absence of other specified parts of digestive tract
CPT/HCPCS: 99283; 96372 ×2; J2360; J1885